=== PATIENT | female | born 1940 | race Caucasian/White ===

== ENCOUNTER 2017-08-08 16:34 | Inpatient (IN) | payer MEDICARE, MEDICAID ==
[2017-08-08 17:00] VITALS: BMI 19.4
[2017-08-08] MEDS ORDERED: Sodium Chloride 0.9% 500 ML IV ONE ×2 (17:06→20:54)
[2017-08-08] MEDS ORDERED: cefTRIAXone IV 1 gm in Dextros 50 ML IV ONE (17:08)
[2017-08-08 17:41] LABS: BASO % 0.4 % (0.0-2.0); EOS % 0.2 % (0.0-4.0); HEMATOCRIT 31.7 % (34.0-47.0); LYMPH # 0.7 K/uL (1.0-4.3); LYMPH % 8.5 % (20.0-40.0); MEAN CELL VOLUME 89.2 fL (81.0-99.0); MEAN CORPUSCULAR HEMOGLOBIN 30.1 pg (27.0-31.0); MEAN CORPUSCULAR HGB CONC 33.7 g/dL (33.0-37.0); MONO # 0.5 K/uL (0.0-0.8); MONO % 6.5 % (0.0-10.0); PLATELET COUNT 271 K/uL (130-400); RED CELL DISTRIBUTION WIDTH 16.1 % (11.5-14.5); WHITE BLOOD COUNT 8.3 K/uL (4.8-10.8)
[2017-08-08 17:51] LABS: VENOUS BLOOD GAS BASE EXCESS 2.5 mmol/L (0.0-2.0); VENOUS BLOOD GAS PCO2 45 mmHg (40-60)
[2017-08-08 17:52] LABS: ALB/GLOB RATIO 1.3 (1.0-2.1); CALCIUM 8.5 mg/dl (8.6-10.4); POTASSIUM 3.8 mmol/L (3.6-5.2); TOTAL PROTEIN 7.1 g/dL (6.3-8.3)
[2017-08-08] MEDS ORDERED: cefTRIAXone IV 1 gm in Dextros 50 ML IVPB ONE (17:57)
[2017-08-08] MEDS ORDERED: (Novolin R) Insulin Human Regular 100 units/ml vial IV STA (17:59)
[2017-08-08 18:04] LABS: TROPONIN I 0.013 ng/mL (0.00-0.120)
[2017-08-08] MEDS ORDERED: (Novolin R) Insulin Human Regular 100 units/ml vial ONE (18:18)
[2017-08-08 18:32] LABS: NEUTROPHIL 86 % (50-75); TOTAL CELLS COUNTED 100
[2017-08-08 18:47] LABS: RBC URINE 2 /hpf (0-3); URINE BACTERIA RARE (<OCC); URINE BILIRUBIN NEGATIVE (NEGATIVE); URINE BLOOD 1+ (NEGATIVE); URINE COLOR Yellow (YELLOW); URINE GLUCOSE (UA) 3+ mg/dL (Normal); URINE KETONE NEGATIVE (NEGATIVE); URINE LEUKOCYTE ESTERASE 2+ Leu/uL (Negative); URINE PROTEIN NEGATIVE (NEGATIVE); URINE UROBILINOGEN NORMAL mg/dL (0.2-1.0); WBC URINE 119 /hpf (0-5)
[2017-08-08] MEDS ORDERED: Lactated Ringer's 1,000 ML IV ONE (19:29)
--- NOTE | 2017-08-08 19:31 | C.PDOC ---
History Of Present Illness 76 year old female with PMHx of UTIs is brought by EMS for evaluation of AMS, fever since 09:00 this morning. Patient has a Hx of gluteal/perineal a year ago. Upon arrival to the ED patient was confused, febrile and shaken. Time Seen by Provider: 08/08/17 17:06 Chief Complaint (Nursing): Altered Mental Status History Per: EMS History/Exam Limitations: Other (confusion) Onset/Duration Of Symptoms: Hrs Current Symptoms Are (Timing): Still Present Usual Baseline: Alert Oriented Exacerbating Factor(s): Unknown Use Of Anticoag/Antiplatelets: No Speech Is: Normal Severity: None Recent travel outside of the [place]: No Additional History Per: EMS Associated Symptoms: Fever, Confused, Other (Shaken) Past Medical History Reviewed: Historical Data, Nursing Documentation, Vital Signs Vital Signs: Last Vital Signs Temp 98.4 F 08/08/17 19:27 Pulse 96 H 08/08/17 19:27 Resp 16 08/08/17 19:27 BP 119/51 L 08/08/17 19:27 Pulse Ox 93 L 08/08/17 20:34 - Medical History PMH: Arthritis, Asthma, COPD, Diabetes, HTN, Hypercholesterolemia, Malignancy, Peripheral Edema, Rheumatoid Arthritis Denies: Chronic Kidney Disease Surgical History: No Surg Hx - [facility] Procedures CONTRAST AORTOGRAM (11/23/14) CONTRAST ARTERIOGRAM-LEG (11/23/14) DRAINAGE OF VULVA, OPEN APPROACH (03/14/16) INSERTION OF INFUSION DEV INTO SUP VENA CAVA, PERC APPROACH (03/06/16) Family History: States: Unknown Family Hx - Social History Hx Tobacco Use: No Hx Alcohol Use: No Hx Substance Use: No - Immunization History Hx Tetanus Toxoid Vaccination: No Hx Influenza Vaccination: Yes (10/2015) Hx Pneumococcal Vaccination: Yes (10/2015) Review Of Systems Constitutional: Positive for: Fever. Negative for: Chills Eyes: Negative for: Vision Change Cardiovascular: Negative for: Chest Pain, Palpitations Respiratory: Negative for: Cough, Shortness of Breath Gastrointestinal: Negative for: Nausea, Vomiting, Abdominal Pain Musculoskeletal: Negative for: Back Pain Skin: Negative for: Rash Neurological: Positive for: Confusion, Altered Mental Status. Negative for: Weakness, Numbness Physical Exam - Physical Exam Appears: Non-toxic, Confused, Other (elderly, shaken) Skin: Normal Color, Warm, Dry Head: Atraumatic, Normacephalic Nose: No Discharge, No Deformity Oral Mucosa: Moist Neck: Normal ROM, Supple Chest: Symmetrical Cardiovascular: Rhythm Regular, No Murmur Respiratory: Normal Breath Sounds, No Rales, No Rhonchi, No Wheezing Gastrointestinal/Abdominal: Soft, No Tenderness, No Distention, No Rebound Extremity: Normal ROM, No Pedal Edema, No Calf Tenderness, No Deformity, No Swelling Neurological/Psych: Oriented x3 ED Course And Treatment - Laboratory Results Result Diagrams: 08/08/17 17:36 08/08/17 17:36 Lab Interpretation: Abnormal (UA 119 WBC's) ECG Rhythm: Sinus Tachycardia ECG Interpretation: Abnormal Rate From EC (MAT vs AF) O2 Sat by Pulse Oximetry: 93 (On RA) Pulse Ox Interpretation: Normal - Radiology CXR: Interpreted by Pr CXR Interpretation: Yes: No Acute Disease - CT Scan/US head CT Other Rad Studies (CT/US): Radiology Report Reviewed (no acute changes) Progress Note: IVF, tylenol, Rocephin IV Reevaluation Time: 19:53 Reassessment Condition: Improved - Physician Consult Information Outcome Of Conversation: 193: d/w Dr. Rodney- PMD-ok to admit. recommends lovenox 1mg/kg SQ Medical Decision Making Medical Decision Making: Plan: * EKG * Tylenol 975 mg PO * Lovenox 50 mg SC * Insulin 4 units * IV fluids * Blood culture * Urine culture early sepsis, UTI, hyponatremia/hypochloric, c/w dehydration. Disposition Doctor Will See Patient In The: Hospital Counseled Patient/Family Regarding: Studies Performed, Diagnosis - Disposition Disposition: HOSPITALIZED Disposition Time: 19:54 Condition: GOOD - Clinical Impression Clinical Impression: Septicemia, UTI (urinary tract infection), Dehydration, Mental status change - Scribe Statement The provider has reviewed the documentation as recorded by the Scribe Yan Dillard All medical record entries made by the Scribe were at my direction and personally dictated by me. I have reviewed the chart and agree that the record accurately reflects my personal performance of the history, physical exam, medical decision making, and the department course for this patient. I have also personally directed, reviewed, and agree with the discharge instructions and disposition.
[2017-08-08] MEDS ORDERED: Enoxaparin 60 mg Syringe SC STA (19:58)
--- NOTE | 2017-08-08 20:03 | CT ---
EXAM: CT Head Without Intravenous Contrast CLINICAL HISTORY: 76 years old, female; Signs and symptoms; Altered mental status/memory loss; Additional info: Change of mental status, h/o tumor TECHNIQUE: Axial computed tomography images of the head/brain without intravenous contrast. All CT scans at this facility use one or more dose reduction techniques, viz.: automated exposure control; ma/kV adjustment per patient size (including targeted exams where dose is matched to indication; i.e. head); or iterative reconstruction technique. COMPARISON: No relevant prior studies available. FINDINGS: Brain: Prior right craniotomy with underlying temporal encephalomalacia. Generalized atrophy and chronic white matter ischemic changes. Vascular calcification. There is no evidence of mass or acute infarct. No definitive evidence of hemorrhage. Small focus of hyperattenuation in the right frontal lobe, question artifact, question etiology. Ventricles: No hydrocephalus. Sinuses: Minimal paranasal sinus mucosal thickening. No acute sinusitis. Mastoid air cells: No mastoid effusion. Artifact. IMPRESSION: Artifact limits evaluation. Small focus of hyperattenuation in the right frontal lobe, question artifact, question etiology. Chronic findings as above. Correlate clinically. Followup as warranted.
[2017-08-08] MEDS ORDERED: Enoxaparin 60 mg Syringe ONE (20:31)
[2017-08-08 21:10] LABS: VENOUS BLOOD GAS BASE EXCESS -2.7 mmol/L (0.0-2.0); VENOUS BLOOD GAS PCO2 40 mmHg (40-60); VENOUS BLOOD PH 7.36 (7.32-7.43)
--- NOTE | 2017-08-08 22:07 | CP.PCM.HP ---
History of Present Illness - History of Present Illness History of Present Illness: chief complaint: AMS, confusion and weakness with shaking since this am History present illness: 75-year-old female with history of hypertension, diabetes, hypercholesteremia, rheumatoid arthritis, history of brain surgery came to the emergency room with weakness, and AMS and shaking since this am. few days she is making small amount of urine and but no blood or pain. 2 days she was feeling more weak and not eating well. 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 But no fever at home. Upon arrival to ER she had fever of 103 rectally. she was warm and legs are more red. she had perineal abscess in the past and had I and D. past medical history: Hypertension, diabetes, rheumatoid arthritis, hypercholesterolemia,history of brain surgery. Surgical history included Brain surgery and craniotomy and abscess drainage Allergies: No known drug allergy Family history: Noncontributory. Review of system: patient is having increasing weakness, AMS, lethargic worsening in shaking poor eating no nausea no vomiting chills and fever. On examination: Temp Pulse Resp BP Pulse Ox 98.2 F 86 20 82/58 L 93 L 08/08/17 21:30 08/08/17 21:58 08/08/17 21:58 08/08/17 21:58 08/08/17 21:58 Vital signs reviewed in Chest good air entry bilaterally regular heart sound noted. Nontender abdomen. Extremities bilateral pedal edema noted. 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 Elevated WBC noted. 08/08/17 17:36 08/08/17 17:36 Assessment/condition: 76-year-old female with history of diabetes, hypertension, hypercholesteremia, RA h/o craniotomy admitted with AMS likely 2* to urosepsis and associated with SIRS or sepsis UTI with sepsis uncontrolled DM hyponautremia hypotension prognosis guarded IVF antibiotic DVT and GI prophylaxis spoke to family may need ICU eval Present on Admission - Present on Admission Any Indicators Present on Admission: No History of DVT/PE: No History of Uncontrolled Diabetes: No Urinary Catheter: No Decubitus Ulcer Present: No Past Patient History - Past Medical History & Family History Past Medical History?: Yes - Past Social History Smoking Status: Never Smoked - CARDIAC Hx Hypercholesterolemia: Yes Hx Hypertension: Yes Hx Peripheral Edema: Yes - PULMONARY Hx Asthma: Yes Hx Chronic Obstructive Pulmonary Disease (COPD): Yes - NEUROLOGICAL Hx Neurological Disorder: Yes (NEUROPATHY) Other/Comment: HX CRANIOTOMY BENIGN BRAIN TUMOR; POLYNEUROPATHY - HEENT Hx HEENT Problems: Yes Hx Cataracts: Yes Hx Glaucoma: Yes - RENAL Hx Chronic Kidney Disease: No - ENDOCRINE/METABOLIC Hx Endocrine Disorders: Yes Hx Diabetes Mellitus Type 1: Yes - HEMATOLOGICAL/ONCOLOGICAL Hx Blood Disorders: Yes Hx Cancer: Yes (BREAST MASTECTOMY) - INTEGUMENTARY Hx Dermatological Problems: No - MUSCULOSKELETAL/RHEUMATOLOGICAL Hx Arthritis: Yes Hx Rheumatoid Arthritis: Yes - GASTROINTESTINAL Hx Gastrointestinal Disorders: Yes Hx Gastroesophageal Reflux: Yes - GENITOURINARY/GYNECOLOGICAL Hx Genitourinary Disorders: No - PSYCHIATRIC Hx Substance Use: No - SURGICAL HISTORY Hx Surgeries: Yes Hx Mastectomy: Yes (left breast) Other/Comment: CRANIOTOMY 1994 BENIGN BRAIN TUMOR REMOVAL ABD CYST - ANESTHESIA Hx Anesthesia: Yes Hx Anesthesia Reactions: No Hx Malignant Hyperthermia: No Meds Allergies/Adverse Reactions: Allergies Allergy/AdvReac Type Severity Reaction Status Date / Time No Known Allergies Allergy Verified 08/08/17 17:00 Results - Vital Signs Recent Vital Signs: Last Vital Signs Temp 98.2 F 08/08/17 21:30 Pulse 88 08/08/17 21:30 Resp 20 08/08/17 21:30 BP 92/60 L 08/08/17 21:30 Pulse Ox 95 08/08/17 21:30 - Labs Result Diagrams: 08/08/17 17:36 08/08/17 17:36 Labs: Laboratory Results - last 24 hr 08/08/17 08/08/17 08/08/17 17:30 17:36 17:36 WBC 8.3 RBC 3.56 L Hgb 10.7 L Hct 31.7 L MCV 89.2 D MCH 30.1 MCHC 33.7 RDW 16.1 H Plt Count 271 MPV 9.0 Neut % (Auto) 84.4 H Lymph % (Auto) 8.5 L [place] % (Auto) 6.5 Eos % (Auto) 0.2 Baso % (Auto) 0.4 Neut # 7.0 Lymph # 0.7 L [place] # 0.5 Eos # 0.0 Baso # 0.0 Neutrophils % (Manual) 86 H Lymphocytes % (Manual) 12 L Monocytes % (Manual) 2 Platelet Estimate Normal PT INR APTT pO2 VBG pH VBG pCO2 VBG HCO3 VBG Total CO2 VBG O2 Sat (Calc) VBG Base Excess VBG Potassium Glucose Lactate Sodium 126 L Potassium 3.8 Chloride 90 L Carbon Dioxide 26 Anion Gap 14 BUN 28 H Creatinine 1.2 Est GFR ( Amer) 53 Est GFR (Non-Af Amer) 44 POC Glucose (mg/dL) Random Glucose 300 H Calcium 8.5 L Total Bilirubin 1.0 AST 21 ALT 32 Alkaline Phosphatase 93 Troponin I 0.0130 NT-Pro-B Natriuret Pep 412 Total Protein 7.1 Albumin 4.0 Globulin 3.1 Albumin/Globulin Ratio 1.3 Venous Blood Potassium Urine Color Urine Clarity Urine pH Ur Specific [place] Urine Protein Urine Glucose (UA) Urine Ketones Urine Blood Urine Nitrate Urine Bilirubin Urine Urobilinogen Ur Leukocyte Esterase Urine WBC (Auto) Urine RBC (Auto) Ur Squamous Epith Cells Urine Bacteria Influenza Typ A,B (EIA) Negative for flu a/b 08/08/17 08/08/17 08/08/17 17:36 17:46 18:32 WBC RBC Hgb Hct MCV MCH MCHC RDW Plt Count MPV Neut % (Auto) Lymph % (Auto) [place] % (Auto) Eos % (Auto) Baso % (Auto) Neut # Lymph # [place] # Eos # Baso # Neutrophils % (Manual) Lymphocytes % (Manual) Monocytes % (Manual) Platelet Estimate PT 10.6 INR 1.0 APTT 24 pO2 35 VBG pH 7.40 VBG pCO2 45 VBG HCO3 26.1 VBG Total CO2 29.3 H VBG O2 Sat (Calc) 74.9 H VBG Base Excess 2.5 H VBG Potassium 3.9 Glucose 311 H Lactate 1.9 Sodium 130.0 L Potassium Chloride 93.0 L Carbon Dioxide Anion Gap BUN Creatinine Est GFR ( Amer) Est GFR (Non-Af Amer) POC Glucose (mg/dL) Random Glucose Calcium Total Bilirubin AST ALT Alkaline Phosphatase Troponin I NT-Pro-B Natriuret Pep Total Protein Albumin Globulin Albumin/Globulin Ratio Venous Blood Potassium 3.9 Urine Color Yellow Urine Clarity Hazy Urine pH 5.0 Ur Specific [place] 1.013 Urine Protein Negative Urine Glucose (UA) 3+ H Urine Ketones Negative Urine Blood 1+ H Urine Nitrate Positive H Urine Bilirubin Negative Urine Urobilinogen Normal Ur Leukocyte Esterase 2+ H Urine WBC (Auto) 119 H Urine RBC (Auto) 2 Ur Squamous Epith Cells < 1 Urine Bacteria Rare Influenza Typ A,B (EIA) 08/08/17 08/08/17 20:28 21:07 WBC RBC Hgb Hct MCV MCH MCHC RDW Plt Count MPV Neut % (Auto) Lymph % (Auto) [place] % (Auto) Eos % (Auto) Baso % (Auto) Neut # Lymph # [place] # Eos # Baso # Neutrophils % (Manual) Lymphocytes % (Manual) Monocytes % (Manual) Platelet Estimate PT INR APTT pO2 31 VBG pH 7.36 VBG pCO2 40 VBG HCO3 21.7 VBG Total CO2 23.8 VBG O2 Sat (Calc) 66.9 H VBG Base Excess -2.7 L VBG Potassium 2.8 L Glucose 190 H Lactate 1.8 Sodium 135.0 Potassium Chloride 104.0 Carbon Dioxide Anion Gap BUN Creatinine Est GFR ( Amer) Est GFR (Non-Af Amer) POC Glucose (mg/dL) 201 H Random Glucose Calcium Total Bilirubin AST ALT Alkaline Phosphatase Troponin I NT-Pro-B Natriuret Pep Total Protein Albumin Globulin Albumin/Globulin Ratio Venous Blood Potassium 2.8 L Urine Color Urine Clarity Urine pH Ur Specific [place] Urine Protein Urine Glucose (UA) Urine Ketones Urine Blood Urine Nitrate Urine Bilirubin Urine Urobilinogen Ur Leukocyte Esterase Urine WBC (Auto) Urine RBC (Auto) Ur Squamous Epith Cells Urine Bacteria Influenza Typ A,B (EIA)
[2017-08-08] MEDS ORDERED: Sodium Chloride 0.9% 1,000 ML IV SCH (22:15)
[2017-08-08] MEDS: Piperacill/Tazo 2.25gm in Dex 2.25 GM/50 ML BAG IVPB SCH (23:00)
[2017-08-09] MEDS ORDERED: Tramadol 25 mg PO ONE (01:47)
[2017-08-09] MEDS: Albuterol-Ipratrop 3 mg / 0.5 (3 ml) UD INH SCH ×4 (01:51→20:16)
[2017-08-09 02:46] LABS: ABG ALLEN TEST POS; ABG MECHANICAL RATE 14; ARTERIAL BLOOD GAS MODE BiPAP; DRAW SITE RRADIAL
[2017-08-09] MEDS: Magnesium Sulfate 1 gm in D5W 1 GM/100 ML BAG IVPB SCH ×2 (03:07→03:42)
[2017-08-09] MEDS: Piperacill/Tazo 2.25gm in Dex 2.25 GM/50 ML BAG IVPB SCH ×4 (04:49→22:31)
[2017-08-09 06:37] LABS: BASO % 0.1 % (0.0-2.0); EOS % 0.1 % (0.0-4.0); HEMATOCRIT 27.7 % (34.0-47.0); LYMPH # 0.5 K/uL (1.0-4.3); MEAN CELL VOLUME 90.4 fL (81.0-99.0); MEAN CORPUSCULAR HEMOGLOBIN 30.9 pg (27.0-31.0); MEAN CORPUSCULAR HGB CONC 34.2 g/dL (33.0-37.0); MEAN PLATELET VOLUME 10.3 fL (7.2-11.7); MONO # 0.4 K/uL (0.0-0.8); MONO % 4.6 % (0.0-10.0); NRBC % 0.1 % (0.0-2.0); PLATELET COUNT 203 K/uL (130-400); RED CELL DISTRIBUTION WIDTH 16.4 % (11.5-14.5); WHITE BLOOD COUNT 8.2 K/uL (4.8-10.8)
[2017-08-09 07:37] LABS: POTASSIUM 2.4 mmol/L (3.6-5.2)
[2017-08-09 07:38] LABS: ALB/GLOB RATIO 0.7 (1.0-2.1); ALKALINE PHOSPHATASE 46 U/L (38-126); ALT/SGPT 33 U/L (9-52); AST/SGOT 40 U/L (14-36); BILIRUBIN,TOTAL 0.5 mg/dL (0.2-1.3); BLOOD UREA NITROGEN 18 mg/dL (7-17); CALCIUM 4.6 mg/dl (8.6-10.4); CARBON DIOXIDE 17 mmol/L (22-30); CHLORIDE 107 mmol/L (98-107); GFR AFRICAN-AMERICAN > 60; GLUCOSE,RANDOM 282 mg/dL (65-105); SODIUM 128 mmol/L (132-148); TOTAL PROTEIN 4.5 g/dL (6.3-8.3)
[2017-08-09 07:52] LABS: NEUTROPHIL 80 % (50-75); TOTAL CELLS COUNTED 100
[2017-08-09] MEDS: (Novolin R) Insulin Human Regular 100 units/ml vial SC SCH ×4 (08:07→21:56)
--- NOTE | 2017-08-09 08:12 | RAD ---
Chest x-ray single frontal view History: Shortness of breath. Comparison: 03/23/2016 Findings: Moderate venous congestion. Right hilar prominence. Patchy increased markings at the left lung base. Cardiomegaly. Calcification at the aortic knob. Degenerative changes in the spine and shoulders. Impression: Moderate venous congestion. Right hilar prominence. Patchy increased markings at the left lung base. Cardiomegaly.
--- NOTE | 2017-08-09 08:20 | CP.PCM.PN ---
Subjective - Date & Time of Evaluation Date of Evaluation: 08/09/17 Time of Evaluation: 08:17 - Subjective Subjective: Patient is currently on BiPAP. She is arousable, following commands. Respiratory distress mildly noted Patient claims that she is not hungry. Currently no IV fluids running Received Lasix last night. No fever now. Urine output is not clear No chest pain, no wheezing Objective - Vital Signs/Intake and Output Vital Signs (last 24 hours): Temp Pulse Resp BP Pulse Ox 97.6 F 90 22 102/49 L 97 08/09/17 03:41 08/09/17 07:20 08/09/17 07:20 08/09/17 07:01 08/09/17 07:20 Intake and Output: 08/09/17 08/09/17 06:59 18:59 Intake Total 595 Output Total 575 Balance 20 On BiPAP Chest good air entry Regular heart sounds Abdomen soft Extremities edema noted Afebrile now Awake and responding to deep stimuli - Medications Medications: Current Medications Albuterol/Ipratropium (Duoneb 3 Mg/0.5 Mg (3 Ml) Ud) 3 ml INH RQ6 [facility] Last Admin: 08/09/17 01:51 Dose: 3 ml Anastrozole (Arimidex 1 Mg Tab) 1 mg PO DAILY NE[facility] Gabapentin (Neurontin) 300 mg PO DAILY NELLY Heparin Sodium (Porcine) (Heparin) 5,000 units SC Q8 [facility] Last Admin: 08/09/17 05:44 Dose: 5,000 units Piperacillin Sod/Tazobactam Sod (Zosyn 2.25 Gm Iv Premix) 2.25 gm in 50 mls @ 100 mls/hr IVPB Q6H [facility] Last Admin: 08/09/17 04:49 Dose: 100 mls/hr Insulin Detemir (Levemir) 30 unit SC DAILY [facility] Insulin Human Regular (Novolin R) 0 unit SC ACHS NE[facility] PRN Reason: Protocol Last Admin: 08/09/17 08:07 Dose: 3 unit Latanoprost (Xalatan Opht) 0 ml OU HS NE[facility] Montelukast Sodium (Singulair) 10 mg PO HS NELLY Pantoprazole Sodium (Protonix Inj) 40 mg IVP DAILY [facility] Rosuvastatin Calcium (Crestor) 40 mg PO HS NELLY - Labs Labs: 08/09/17 06:28 08/09/17 07:23 PT 10.6 SECONDS (9.7-12.2) 08/08/17 17:36 INR 1.0 08/08/17 17:36 APTT 24 SECONDS (21-34) 08/08/17 17:36 - Head Exam Head Exam: ATRAUMATIC Assessment and Plan (1) Mental status change Assessment & Plan: Patient with a history of hypertension, diabetes, osteoarthritis, rheumatoid arthritis, history of craniotomy, and the recurrent infection in the past. Now admitted with a fever, abnormal urinalysis. Most likely patient has urinary tract infection. Sepsis. Will get a pro calcitonin level Continue antibiotic We'll resume feeding today Physical therapy DVT, GI prophylaxis Possibly patient will need PICC line Will discuss with the family Status: Acute (2) Septicemia Status: Acute (3) UTI (urinary tract infection) Status: Acute
--- NOTE | 2017-08-09 08:24 | RAD ---
Chest x-ray single frontal view History: Shortness of breath. Comparison: 08/08/2017 Findings: Moderate venous congestion. Diffuse increased interstitial lung markings. Right hilar prominence. Patchy consolidative changes at the left lung base. Biapical pleural thickening. Cardiomegaly. Calcification at the aortic knob. Degenerative changes in the spine and shoulders. Impression: Moderate venous congestion. Diffuse increased interstitial lung markings. Right hilar prominence. Patchy consolidative changes at the left lung base. Biapical pleural thickening. Cardiomegaly.
[2017-08-09 08:26] LABS: ALB/GLOB RATIO 1.2 (1.0-2.1); MAGNESIUM 1.9 mg/dL (1.6-2.3); PHOSPHOROUS 2.8 mg/dL (2.5-4.5); POTASSIUM 3.9 mmol/L (3.6-5.2); TOTAL PROTEIN 6.3 g/dL (6.3-8.3)
[2017-08-09] MEDS: Insulin Detemir 100 units/ml Vial (Levemir) SC SCH (10:02)
[2017-08-09] MEDS ORDERED: Influenza Vaccine 60 mcg/0.5 mL SYR (4YR UP) IM ONE (12:10)
[2017-08-09] MEDS: Latanoprost 2.5 ml Opht Soln OU SCH (22:31)
[2017-08-10] MEDS: Albuterol-Ipratrop 3 mg / 0.5 (3 ml) UD INH SCH ×4 (02:05→19:59)
[2017-08-10] MEDS: Piperacill/Tazo 2.25gm in Dex 2.25 GM/50 ML BAG IVPB SCH ×2 (04:17→16:47)
[2017-08-10 06:27] LABS: BASO % 0.1 % (0.0-2.0); HEMATOCRIT 30.7 % (34.0-47.0); LYMPH # 1.5 K/uL (1.0-4.3); LYMPH % 13.5 % (20.0-40.0); MEAN CELL VOLUME 90.4 fL (81.0-99.0); MEAN CORPUSCULAR HEMOGLOBIN 30.6 pg (27.0-31.0); MEAN CORPUSCULAR HGB CONC 33.9 g/dL (33.0-37.0); MEAN PLATELET VOLUME 9.6 fL (7.2-11.7); MONO # 0.9 K/uL (0.0-0.8); MONO % 8.6 % (0.0-10.0)
[2017-08-10 06:48] LABS: ALB/GLOB RATIO 0.8 (1.0-2.1); BILIRUBIN,TOTAL 0.7 mg/dL (0.2-1.3); CALCIUM 8.4 mg/dl (8.6-10.4); PHOSPHOROUS 3.1 mg/dL (2.5-4.5); POTASSIUM 3.6 mmol/L (3.6-5.2); TOTAL PROTEIN 8.1 g/dL (6.3-8.3)
[2017-08-10] MEDS: (Novolin R) Insulin Human Regular 100 units/ml vial SC SCH ×4 (08:02→21:37)
[2017-08-10] MEDS: Insulin Detemir 100 units/ml Vial (Levemir) SC SCH (09:35)
--- NOTE | 2017-08-10 10:26 | VASCLAB ---
PROCEDURE: Lower Extremity Venous Duplex Exam. HISTORY: r/o dvt, B/L LE edema, pain, SOB PRIORS: None. TECHNIQUE: Bilateral common femoral, femoral, popliteal and posterior tibial, peroneal and great saphenous veins were evaluated. Flow was assessed with color Doppler, compressibility, assessment of phasic flow and augmentation response. Report prepared by Marco Antonio George, T FINDINGS: RIGHT: 1. Common Femoral Vein: 1.1. Compressibility - Fully compressible: Thrombus - None : Flow - Phasic: Augmentation -Normal: Reflux - . 2. Femoral Vein: 2.1. Compressibility - Fully compressible: Thrombus - None : Flow - Phasic: Augmentation -Normal: Reflux - . 3. Popliteal Vein: 3.1. Compressibility - Fully compressible: Thrombus - None : Flow - Phasic: Augmentation -Normal: Reflux - . 4. Posterior Tibial Vein: 4.1. Compressibility - Fully compressible: Thrombus - None: Flow - : Augmentation -: Reflux - . 5. Peroneal Vein: 5.1. Compressibility - Fully compressible: Thrombus - None: Flow - : Augmentation -: Reflux - . 6. Great Saphenous Vein: 6.1. Compressibility - Fully compressible: Thrombus - None: Flow - Phasic: Augmentation - : Reflux - . LEFT: 1. Common Femoral Vein: 1.1. Compressibility - Fully compressible: Thrombus - None: Flow - Phasic: Augmentation -Normal: Reflux - . 2. Femoral Vein: 2.1. Compressibility - Fully compressible: Thrombus - None: Flow - Phasic: Augmentation -Normal: Reflux - . 3. Popliteal Vein: 3.1. Compressibility - Fully compressible: Thrombus - None : Flow - Phasic: Augmentation -Normal: Reflux - . 4. Posterior Tibial Vein: 4.1. Compressibility - Fully compressible: Thrombus - None: Flow - : Augmentation -l: Reflux - . 5. Peroneal Vein: 5.1. Compressibility - Fully compressible: Thrombus - None: Flow - : Augmentation -: Reflux - . 6. Great Saphenous Vein: 6.1. Compressibility - Fully compressible: Thrombus - None: Flow - : Augmentation - : Reflux - . OTHER FINDINGS: Right: None significant. Left: None significant. IMPRESSION: Right: No evidence of deep or superficial vein thrombosis of the right lower extremity. Left: No evidence of deep or superficial vein thrombosis of the left lower extremity.
--- NOTE | 2017-08-10 11:58 | CP.PCM.PN ---
Addendum entered and electronically signed by Jessica Teresa DO 08/10/17 12:07: please disregard this note. see Critical Care note Original Note: <Jessica Teresa - Last Filed: 08/10/17 11:48> Subjective - Date & Time of Evaluation Date of Evaluation: 08/10/17 Time of Evaluation: 11:48 - Subjective Subjective: ICU Progress note for Dr. Nick Patient seen and examined at bedside. Patient states she feels better than yesterday and had BIPAP overnight. Patient states she feels better. denies fever , chills, nausea, vomiting, diarrhea. Patient admits to pain in her lower abdomen and is aware she has a urinary tract infection Objective - Vital Signs/Intake and Output Vital Signs (last 24 hours): Temp Pulse Resp BP Pulse Ox 98.3 F 79 15 150/76 100 08/10/17 00:22 08/10/17 10:10 08/10/17 10:10 08/10/17 10:01 08/10/17 10:10 Intake and Output: 08/10/17 08/10/17 06:59 18:59 Intake Total 390 400 Output Total 600 300 Balance -210 100 - Medications Medications: Current Medications Albuterol/Ipratropium (Duoneb 3 Mg/0.5 Mg (3 Ml) Ud) 3 ml INH RQ6 [facility] Last Admin: 08/10/17 08:53 Dose: 3 ml Anastrozole (Arimidex 1 Mg Tab) 1 mg PO DAILY [facility] Last Admin: 08/10/17 09:35 Dose: 1 mg Famotidine (Pepcid) 20 mg PO DAILY [facility] Gabapentin (Neurontin) 300 mg PO DAILY [facility] Last Admin: 08/10/17 09:35 Dose: 300 mg Heparin Sodium (Porcine) (Heparin) 5,000 units SC Q8 [facility] Last Admin: 08/10/17 05:13 Dose: 5,000 units Cefepime HCl (Maxipime Iv 1 Gm Premix) 1 gm in 50 mls @ 100 mls/hr IVPB Q12H [facility] Insulin Detemir (Levemir) 30 unit SC DAILY [facility] Last Admin: 08/10/17 09:35 Dose: 30 unit Insulin Human Regular (Novolin R) 0 unit SC ACHS [facility] PRN Reason: Protocol Last Admin: 08/10/17 08:02 Dose: 4 unit Latanoprost (Xalatan Opht) 0 ml OU HS [facility] Last Admin: 08/09/17 22:31 Dose: 1 ml Montelukast Sodium (Singulair) 10 mg PO HS [facility] Last Admin: 08/09/17 21:57 Dose: 10 mg Rosuvastatin Calcium (Crestor) 40 mg PO HS [facility] Last Admin: 08/09/17 21:57 Dose: 40 mg Tramadol HCl (Ultram) 25 mg PO TID PRN PRN Reason: Pain, moderate (4-7) - Labs Labs: 08/10/17 06:20 08/10/17 06:18 PT 10.6 SECONDS (9.7-12.2) 08/08/17 17:36 INR 1.0 08/08/17 17:36 APTT 24 SECONDS (21-34) 08/08/17 17:36 - Constitutional Appears: Non-toxic, No Acute Distress - Head Exam Head Exam: ATRAUMATIC, NORMAL INSPECTION, NORMOCEPHALIC - Eye Exam Eye Exam: EOMI, Normal appearance - ENT Exam ENT Exam: Mucous Membranes Moist - Neck Exam Neck Exam: Full ROM. absent: Tenderness, Thyromegaly - Respiratory Exam Respiratory Exam: Decreased Breath Sounds, Rales, NORMAL BREATHING PATTERN - Cardiovascular Exam Cardiovascular Exam: REGULAR RHYTHM, +S1, +S2. absent: Bradycardia, Tachycardia - GI/Abdominal Exam GI & Abdominal Exam: Distended, Soft, Normal Bowel Sounds. absent: Tenderness - Extremities Exam Extremities Exam: Full ROM. absent: Pedal Edema - Back Exam Back Exam: Full ROM - Neurological Exam Neurological Exam: Alert, Awake, CN II-XII Intact, Oriented x3 - Psychiatric Exam Psychiatric exam: Normal Affect, Normal Mood - Skin Skin Exam: Dry, Intact, Normal Color, Warm Assessment and Plan - Assessment and Plan (Free Text) Assessment: Plan Neuro: Sedation: none Pain: Tramadol 25mg PO TID PRN 08/08 CT head: small focus of hyperattenuation in right frontal lobe, questionable artifact Cardio: monitor vitals Pulm: 08/08 CXR moderate venous congestion, calcification at aorta 08/09 CXR no change, calcification at aorta Montelukast 10mg POQHS Endo: Levemir 30u SC QD Insulin Human Regular SC Accucheck ACHS f/u A1c GI: 08/10 Lipase 8456 08/10 FOBT positive : 08/09 UA: UTI 08/08 Urine culture: Klebsiella Cefepime 1gm IVPB Q12H Renal: I/O: 24Hr UOP:2200cc No taylor Heme: H/H 10.4/30.7 Oncology: Anastrozole 1mg POQD MSK: Duplex lower extremity artery scan: no dvt, no thrombus ID: f/u AM CBC 08/10 WBC 11.0 from 8.2 08/08 Urine culture: Klebsiella 08/08 Blood culture: Gram negative rods Cefepime 1gm IVPB Q12H Prophylaxis: DVT: Heparin 5000u SC Q8H GI: Pepcid 20mg POQD Fluids: IV fluids transfer to T telemetry Dr. Park Teresa, DO PGY1 <Marianna Nick - Last Filed: 08/10/17 18:51> Subjective - Subjective Subjective: pt is feeling better Objective - Vital Signs/Intake and Output Vital Signs (last 24 hours): Temp Pulse Resp BP Pulse Ox 97.1 F L 76 19 162/78 H 67 L 08/10/17 16:00 08/10/17 18:00 08/10/17 18:00 08/10/17 16:18 08/10/17 16:30 Intake and Output: 08/10/17 08/10/17 06:59 18:59 Intake Total 390 900 Output Total 600 800 Balance -210 100 - Medications Medications: Current Medications Albuterol/Ipratropium (Duoneb 3 Mg/0.5 Mg (3 Ml) Ud) 3 ml INH RQ6 [facility] Last Admin: 08/10/17 14:37 Dose: Not Given Anastrozole (Arimidex 1 Mg Tab) 1 mg PO DAILY [facility] Last Admin: 08/10/17 09:35 Dose: 1 mg Famotidine (Pepcid) 20 mg PO DAILY [facility] Last Admin: 08/10/17 14:21 Dose: 20 mg Gabapentin (Neurontin) 300 mg PO DAILY [facility] Last Admin: 08/10/17 09:35 Dose: 300 mg Heparin Sodium (Porcine) (Heparin) 5,000 units SC Q8 [facility] Last Admin: 08/10/17 14:21 Dose: 5,000 units Cefepime HCl (Maxipime Iv 1 Gm Premix) 1 gm in 50 mls @ 100 mls/hr IVPB Q12H [facility] Last Admin: 08/10/17 12:14 Dose: 100 mls/hr Insulin Detemir (Levemir) 30 unit SC DAILY [facility] Last Admin: 08/10/17 09:35 Dose: 30 unit Insulin Human Regular (Novolin R) 0 unit SC ACHS [facility] PRN Reason: Protocol Last Admin: 08/10/17 16:31 Dose: 4 unit Latanoprost (Xalatan Opht) 0 ml OU HS [facility] Last Admin: 08/09/17 22:31 Dose: 1 ml Montelukast Sodium (Singulair) 10 mg PO HS [facility] Last Admin: 08/09/17 21:57 Dose: 10 mg Rosuvastatin Calcium (Crestor) 40 mg PO HS [facility] Last Admin: 08/09/17 21:57 Dose: 40 mg Tramadol HCl (Ultram) 25 mg PO TID PRN PRN Reason: Pain, moderate (4-7) Last Admin: 08/10/17 16:44 Dose: 25 mg - Labs Labs: 08/10/17 06:20 08/10/17 06:18 PT 10.6 SECONDS (9.7-12.2) 08/08/17 17:36 INR 1.0 08/08/17 17:36 APTT 24 SECONDS (21-34) 08/08/17 17:36 Assessment and Plan (1) Mental status change Status: Acute (2) Septicemia Status: Acute (3) UTI (urinary tract infection) Status: Acute
--- NOTE | 2017-08-10 12:10 | CP.CCUPN ---
<BriiJessica - Last Filed: 08/10/17 12:12> CCU Subjective - Physician Review Events Since Last Encounter (Free Text): 08/10/17 12:08 no acute events overnight Subjective (Free Text): 08/10/17 12:08 ICU Progress note for Dr. Nick Patient seen and examined at bedside. Patient states she feels better than yesterday and had BIPAP overnight. Patient states she feels better. denies fever , chills, nausea, vomiting, diarrhea. Patient admits to pain in her lower abdomen and is aware she has a urinary tract infection Critical Care Time Spent (in minutes): 35 CCU Objective - Vital Signs / Intake & Output Vital Signs (Last 4 hours): Vital Signs Pulse Resp BP Pulse Ox 08/10/17 10:10 79 15 100 08/10/17 10:01 80 21 150/76 08/10/17 10:00 81 23 100 08/10/17 09:50 78 18 99 08/10/17 09:40 82 17 96 08/10/17 09:30 81 12 99 08/10/17 09:20 76 14 99 08/10/17 09:10 75 21 100 08/10/17 09:01 76 19 149/73 100 08/10/17 09:00 76 16 100 08/10/17 08:50 79 16 95 08/10/17 08:40 73 17 100 08/10/17 08:30 77 17 100 08/10/17 08:20 77 17 100 08/10/17 08:10 71 17 100 Intake and Output (Last 8hrs): Intake & Output 08/09/17 08/10/17 08/10/17 22:59 06:59 14:59 Intake Total 640 150 400 Output Total 1100 300 300 Balance -460 -150 100 Weight 284 lb Intake: Intake, IV Amount 150 0 Left External Jugular 0 Right Upper arm 150 Oral 640 400 Output: Urine 1100 300 300 Urine, Voided 1100 300 300 Other: # Bowel Movements 1 0 - Physical Exam Head: Positive for: Atraumatic, Normocephalic Extroacular Muscles: Positive for: EOMI Conjunctiva: Positive for: Normal Mouth: Positive for: Moist Mucous Membranes Pharnyx: Negative for: Muffled/Hoarse Voice, Soft Palate/Uvular Edema Nose (External): Positive for: Atraumatic Nose (Internal): Positive for: Normal Inspection, Moist. Negative for: No Active Bleeding, Epistaxis Neck: Positive for: Normal Range of Motion. Negative for: Paraspinal Tenderness , JVD Respiratory/Chest: Positive for: Clear to Auscultation, Rales Cardiovascular: Positive for: Regular Rate and Rhythm, Normal S1, S2 Upper Extremity: Positive for: Normal Inspection Lower Extremity: Positive for: Normal Inspection Neurological: Positive for: GCS=15, CN II-XII Intact Skin: Positive for: Warm, Dry - Medications Active Medications: Active Medications Generic Name Dose Route Start Last Admin Trade Name Freq PRN Reason Stop Dose Admin Albuterol/Ipratropium 3 ml 08/09/17 02:00 08/10/17 08:53 Duoneb 3 Mg/0.5 Mg (3 Ml) Ud INH 3 ml RQ6 NELLY Administration Anastrozole 1 mg 08/09/17 10:00 08/10/17 09:35 Arimidex 1 Mg Tab PO 1 mg DAILY NELLY Administration Famotidine 20 mg 08/10/17 11:30 Pepcid PO DAILY NELLY Gabapentin 300 mg 08/09/17 10:00 08/10/17 09:35 Neurontin PO 300 mg DAILY NELLY Administration Heparin Sodium (Porcine) 5,000 units 08/09/17 06:00 08/10/17 05:13 Heparin SC 5,000 units Q8 NELLY Administration Cefepime HCl 1 gm in 50 mls @ 100 mls/hr 08/10/17 11:30 Maxipime Iv 1 Gm Premix IVPB Q12H NELLY Insulin Detemir 30 unit 08/09/17 10:00 08/10/17 09:35 Levemir SC 30 unit DAILY NELLY Administration Insulin Human Regular 0 unit 08/09/17 07:30 08/10/17 08:02 Novolin R SC 4 unit ACHS NELLY Administration Protocol Latanoprost 0 ml 08/09/17 22:00 08/09/17 22:31 Xalatan Opht OU 1 ml HS NELLY Administration Montelukast Sodium 10 mg 08/09/17 22:00 08/09/17 21:57 Singulair PO 10 mg HS NELLY Administration Rosuvastatin Calcium 40 mg 08/09/17 22:00 08/09/17 21:57 Crestor PO 40 mg HS NELLY Administration Tramadol HCl 25 mg 08/09/17 18:30 Ultram PO TID PRN Pain, moderate (4-7) - Patient Studies Lab Studies: Microbiology Studies 08/08/17 20:30 Urine Culture - Final Urine,Catheterized Klebsiella Pneumoniae Ssp Pneu 08/08/17 18:00 Blood Culture - Preliminary Blood Gram Negative Tom Gram Stain - Final 08/08/17 18:00 Blood Culture - Preliminary Blood Gram Negative Tom Gram Stain - Final Lab Studies 08/10/17 08/10/17 08/10/17 Range/Units 07:17 06:20 06:18 WBC 11.0 H (4.8-10.8) K/uL RBC 3.40 L (3.80-5.20) Mil/uL Hgb 10.4 L (11.0-16.0) g/dL Hct 30.7 L (34.0-47.0) % MCV 90.4 (81.0-99.0) fL MCH 30.6 (27.0-31.0) pg MCHC 33.9 (33.0-37.0) g/dL RDW 16.0 H (11.5-14.5) % Plt Count 244 (130-400) K/uL MPV 9.6 (7.2-11.7) fL Neut % (Auto) 77.8 H (50.0-75.0) % Lymph % (Auto) 13.5 L (20.0-40.0) % Cotton % (Auto) 8.6 (0.0-10.0) % Eos % (Auto) 0.0 (0.0-4.0) % Baso % (Auto) 0.1 (0.0-2.0) % Neut # 8.6 H (1.8-7.0) K/uL Lymph # 1.5 (1.0-4.3) K/uL Cotton # 0.9 H (0.0-0.8) K/uL Eos # 0.0 (0.0-0.7) K/uL Baso # 0.0 (0.0-0.2) K/uL Sodium 132 (132-148) mmol/L Potassium 3.6 (3.6-5.2) mmol/L Chloride 95 L (98-107) mmol/L Carbon Dioxide 28 (22-30) mmol/L Anion Gap 13 (10-20) BUN 27 H (7-17) mg/dL Creatinine 1.1 (0.7-1.2) mg/dL Est GFR ( Amer) 58 Est GFR (Non-Af Amer) 48 POC Glucose (mg/dL) 286 H (65-110) mg/dL Random Glucose 285 H (65-105) mg/dL Calcium 8.4 L (8.6-10.4) mg/dl Phosphorus 3.1 (2.5-4.5) mg/dL Magnesium 2.0 (1.6-2.3) mg/dL Total Bilirubin 0.7 (0.2-1.3) mg/dL AST 31 (14-36) U/L ALT 39 (9-52) U/L Alkaline Phosphatase 80 (38-126) U/L Total Protein 8.1 (6.3-8.3) g/dL Albumin 3.7 (3.5-5.0) g/dL Globulin 4.4 H (2.2-3.9) gm/dL Albumin/Globulin Ratio 0.8 L (1.0-2.1) Procalcitonin (0.19-0.49) NG/ML 08/10/17 08/09/17 08/09/17 Range/Units 02:22 21:04 16:13 WBC (4.8-10.8) K/uL RBC (3.80-5.20) Mil/uL Hgb (11.0-16.0) g/dL Hct (34.0-47.0) % MCV (81.0-99.0) fL MCH (27.0-31.0) pg MCHC (33.0-37.0) g/dL RDW (11.5-14.5) % Plt Count (130-400) K/uL MPV (7.2-11.7) fL Neut % (Auto) (50.0-75.0) % Lymph % (Auto) (20.0-40.0) % Cotton % (Auto) (0.0-10.0) % Eos % (Auto) (0.0-4.0) % Baso % (Auto) (0.0-2.0) % Neut # (1.8-7.0) K/uL Lymph # (1.0-4.3) K/uL Cotton # (0.0-0.8) K/uL Eos # (0.0-0.7) K/uL Baso # (0.0-0.2) K/uL Sodium (132-148) mmol/L Potassium (3.6-5.2) mmol/L Chloride (98-107) mmol/L Carbon Dioxide (22-30) mmol/L Anion Gap (10-20) BUN (7-17) mg/dL Creatinine (0.7-1.2) mg/dL Est GFR ( Amer) Est GFR (Non-Af Amer) POC Glucose (mg/dL) 305 H 316 H 310 H (65-110) mg/dL Random Glucose (65-105) mg/dL Calcium (8.6-10.4) mg/dl Phosphorus (2.5-4.5) mg/dL Magnesium (1.6-2.3) mg/dL Total Bilirubin (0.2-1.3) mg/dL AST (14-36) U/L ALT (9-52) U/L Alkaline Phosphatase (38-126) U/L Total Protein (6.3-8.3) g/dL Albumin (3.5-5.0) g/dL Globulin (2.2-3.9) gm/dL Albumin/Globulin Ratio (1.0-2.1) Procalcitonin (0.19-0.49) NG/ML 08/09/ Range/Units 10:36 WBC (4.8-10.8) K/uL RBC (3.80-5.20) Mil/uL Hgb (11.0-16.0) g/dL Hct (34.0-47.0) % MCV (81.0-99.0) fL MCH (27.0-31.0) pg MCHC (33.0-37.0) g/dL RDW (11.5-14.5) % Plt Count (130-400) K/uL MPV (7.2-11.7) fL Neut % (Auto) (50.0-75.0) % Lymph % (Auto) (20.0-40.0) % Cotton % (Auto) (0.0-10.0) % Eos % (Auto) (0.0-4.0) % Baso % (Auto) (0.0-2.0) % Neut # (1.8-7.0) K/uL Lymph # (1.0-4.3) K/uL Cotton # (0.0-0.8) K/uL Eos # (0.0-0.7) K/uL Baso # (0.0-0.2) K/uL Sodium (132-148) mmol/L Potassium (3.6-5.2) mmol/L Chloride (98-107) mmol/L Carbon Dioxide (22-30) mmol/L Anion Gap (10-20) BUN (7-17) mg/dL Creatinine (0.7-1.2) mg/dL Est GFR ( Amer) Est GFR (Non-Af Amer) POC Glucose (mg/dL) (65-110) mg/dL Random Glucose (65-105) mg/dL Calcium (8.6-10.4) mg/dl Phosphorus (2.5-4.5) mg/dL Magnesium (1.6-2.3) mg/dL Total Bilirubin (0.2-1.3) mg/dL AST (14-36) U/L ALT (9-52) U/L Alkaline Phosphatase (38-126) U/L Total Protein (6.3-8.3) g/dL Albumin (3.5-5.0) g/dL Globulin (2.2-3.9) gm/dL Albumin/Globulin Ratio (1.0-2.1) Procalcitonin 7.10 H (0.19-0.49) NG/ML Laboratory Results - last 24 hr 08/09/17 08/09/17 08/09/17 10:36 16:13 21:04 WBC RBC Hgb Hct MCV MCH MCHC RDW Plt Count MPV Neut % (Auto) Lymph % (Auto) Cotton % (Auto) Eos % (Auto) Baso % (Auto) Neut # Lymph # Cotton # Eos # Baso # Sodium Potassium Chloride Carbon Dioxide Anion Gap BUN Creatinine Est GFR ( Amer) Est GFR (Non-Af Amer) POC Glucose (mg/dL) 310 H 316 H Random Glucose Calcium Phosphorus Magnesium Total Bilirubin AST ALT Alkaline Phosphatase Total Protein Albumin Globulin Albumin/Globulin Ratio Procalcitonin 7.10 H 08/10/17 08/10/17 08/10/17 02:22 06:18 06:20 WBC 11.0 H RBC 3.40 L Hgb 10.4 L Hct 30.7 L MCV 90.4 MCH 30.6 MCHC 33.9 RDW 16.0 H Plt Count 244 MPV 9.6 Neut % (Auto) 77.8 H Lymph % (Auto) 13.5 L Cotton % (Auto) 8.6 Eos % (Auto) 0.0 Baso % (Auto) 0.1 Neut # 8.6 H Lymph # 1.5 Cotton # 0.9 H Eos # 0.0 Baso # 0.0 Sodium 132 Potassium 3.6 Chloride 95 L Carbon Dioxide 28 Anion Gap 13 BUN 27 H Creatinine 1.1 Est GFR ( Amer) 58 Est GFR (Non-Af Amer) 48 POC Glucose (mg/dL) 305 H Random Glucose 285 H Calcium 8.4 L Phosphorus 3.1 Magnesium 2.0 Total Bilirubin 0.7 AST 31 ALT 39 Alkaline Phosphatase 80 Total Protein 8.1 Albumin 3.7 Globulin 4.4 H Albumin/Globulin Ratio 0.8 L Procalcitonin 08/10/17 07:17 WBC RBC Hgb Hct MCV MCH MCHC RDW Plt Count MPV Neut % (Auto) Lymph % (Auto) Cotton % (Auto) Eos % (Auto) Baso % (Auto) Neut # Lymph # Cotton # Eos # Baso # Sodium Potassium Chloride Carbon Dioxide Anion Gap BUN Creatinine Est GFR ( Amer) Est GFR (Non-Af Amer) POC Glucose (mg/dL) 286 H Random Glucose Calcium Phosphorus Magnesium Total Bilirubin AST ALT Alkaline Phosphatase Total Protein Albumin Globulin Albumin/Globulin Ratio Procalcitonin Fingerstick Blood Sugar Results: 286 Critical Care Progress Note - Ventilator Checklist Head of Bed 30 Degrees: No Daily Sedation Vacation: No Daily Assessment of Readiness to Wean: No Daily Spontaneous Breathing Trial: No PUD Prophalyxis: Yes DVT Prophylaxis: Yes - Extremities/Vascular Does the Patient have a Central Venous Catheter?: No Does the Patient need a Central Venous Catheter?: No Does the Patient have a Taylor Catheter?: No Does the Patient need a Taylor Catheter?: No - Prophylaxis GI Prophylaxis GI: Pepsid - Prophylaxis DVT Prophylaxis DVT: Heparin SQ - Nutrition Nutrition: Nutrition Category Date Time Status Consistent Carbohydrate [DIET] Diets 08/10/17 Lunch Active Assessment/Plan - Assessment and Plan (Free Text) Assessment: Assessment: 76 F with PMH hypertension, diabetes, osteoarthritis, rheumatoid arthritis, history of craniotomy, and the recurrent infection in the past and UTI Plan Neuro: Sedation: none Pain: Tramadol 25mg PO TID PRN 08/08 CT head: small focus of hyperattenuation in right frontal lobe, questionable artifact Cardio: monitor vitals Pulm: 08/08 CXR moderate venous congestion, calcification at aorta 08/09 CXR no change, calcification at aorta Montelukast 10mg POQHS Endo: Levemir 30u SC QD Insulin Human Regular SC Accucheck ACHS f/u A1c GI: 08/10 Lipase 8456 08/10 FOBT positive : 08/09 UA: UTI 08/08 Urine culture: Klebsiella Cefepime 1gm IVPB Q12H Renal: I/O: 24Hr UOP:2200cc No taylor Heme: H/H 10.4/30.7 Oncology: Anastrozole 1mg POQD MSK: Duplex lower extremity artery scan: no dvt, no thrombus ID: f/u AM CBC 08/10 WBC 11.0 from 8.2 08/08 Urine culture: Klebsiella 08/08 Blood culture: Gram negative rods Cefepime 1gm IVPB Q12H Prophylaxis: DVT: Heparin 5000u SC Q8H GI: Pepcid 20mg POQD Fluids: IV fluids transfer to 6T telemetry today Dr. Park Teresa, DO PGY1 - Date & Time Date: 08/10/17 Time: 12:12 <Marianna Nick - Last Filed: 08/10/17 18:52> CCU Objective - Vital Signs / Intake & Output Vital Signs (Last 4 hours): Vital Signs Temp Pulse Resp BP Pulse Ox 08/10/17 18:00 76 19 08/10/17 17:50 76 18 08/10/17 17:40 85 13 08/10/17 17:30 76 22 08/10/17 17:20 76 22 08/10/17 17:10 78 14 08/10/17 17:00 75 13 08/10/17 16:50 75 25 H 08/10/17 16:40 107 H 24 08/10/17 16:30 75 20 67 L 08/10/17 16:20 76 15 66 L 08/10/17 16:18 77 17 162/78 H 63 L 08/10/17 16:10 75 18 66 L 08/10/17 16:00 97.1 F L 73 16 67 L 08/10/17 15:50 73 14 08/10/17 15:40 78 21 08/10/17 15:30 78 17 08/10/17 15:20 74 20 100 08/10/17 15:18 77 12 153/82 H 08/10/17 15:10 78 18 08/10/17 15:00 75 20 69 L Intake and Output (Last 8hrs): Intake & Output 08/10/17 08/10/17 08/10/17 06:59 14:59 22:59 Intake Total 150 700 200 Output Total 300 600 200 Balance -150 100 0 Weight 284 lb Intake: Intake, IV Amount 150 50 0 Left External Jugular 50 0 Right Upper arm 150 Oral 650 200 Output: Urine 300 600 200 Urine, Voided 300 600 200 Other: # Bowel Movements 1 0 - Medications Active Medications: Active Medications Generic Name Dose Route Start Last Admin Trade Name Freq PRN Reason Stop Dose Admin Albuterol/Ipratropium 3 ml 08/09/17 02:00 08/10/17 14:37 Duoneb 3 Mg/0.5 Mg (3 Ml) Ud INH Not Given RQ6 NELLY Anastrozole 1 mg 08/09/17 10:00 08/10/17 09:35 Arimidex 1 Mg Tab PO 1 mg DAILY NELLY Administration Famotidine 20 mg 08/10/17 11:30 08/10/17 14:21 Pepcid PO 20 mg DAILY NELLY Administration Gabapentin 300 mg 08/09/17 10:00 08/10/17 09:35 Neurontin PO 300 mg DAILY NELLY Administration Heparin Sodium (Porcine) 5,000 units 08/09/17 06:00 08/10/17 14:21 Heparin SC 5,000 units Q8 NELLY Administration Cefepime HCl 1 gm in 50 mls @ 100 mls/hr 08/10/17 11:30 08/10/17 12:14 Maxipime Iv 1 Gm Premix IVPB 100 mls/hr Q12H NELLY Administration Insulin Detemir 30 unit 08/09/17 10:00 08/10/17 09:35 Levemir SC 30 unit DAILY NELLY Administration Insulin Human Regular 0 unit 08/09/17 07:30 08/10/17 16:31 Novolin R SC 4 unit ACHS NELLY Administration Protocol Latanoprost 0 ml 08/09/17 22:00 08/09/17 22:31 Xalatan Opht OU 1 ml HS NELLY Administration Montelukast Sodium 10 mg 08/09/17 22:00 08/09/17 21:57 Singulair PO 10 mg HS NELLY Administration Rosuvastatin Calcium 40 mg 08/09/17 22:00 08/09/17 21:57 Crestor PO 40 mg HS NELLY Administration Tramadol HCl 25 mg 08/09/17 18:30 08/10/17 16:44 Ultram PO 25 mg TID PRN Administration Pain, moderate (4-7) - Patient Studies Lab Studies: Microbiology Studies 08/08/17 18:00 Blood Culture - Preliminary Blood Gram Negative Tom Gram Stain - Final 08/08/17 18:00 Blood Culture - Preliminary Blood Gram Negative Tom Gram Stain - Final 08/08/17 20:30 Urine Culture - Final Urine,Catheterized Klebsiella Pneumoniae Ssp Pneu Lab Studies 08/10/17 08/10/17 08/10/17 Range/Units 16:21 12:13 07:17 WBC (4.8-10.8) K/uL RBC (3.80-5.20) Mil/uL Hgb (11.0-16.0) g/dL Hct (34.0-47.0) % MCV (81.0-99.0) fL MCH (27.0-31.0) pg MCHC (33.0-37.0) g/dL RDW (11.5-14.5) % Plt Count (130-400) K/uL MPV (7.2-11.7) fL Neut % (Auto) (50.0-75.0) % Lymph % (Auto) (20.0-40.0) % Cotton % (Auto) (0.0-10.0) % Eos % (Auto) (0.0-4.0) % Baso % (Auto) (0.0-2.0) % Neut # (1.8-7.0) K/uL Lymph # (1.0-4.3) K/uL Cotton # (0.0-0.8) K/uL Eos # (0.0-0.7) K/uL Baso # (0.0-0.2) K/uL Sodium (132-148) mmol/L Potassium (3.6-5.2) mmol/L Chloride (98-107) mmol/L Carbon Dioxide (22-30) mmol/L Anion Gap (10-20) BUN (7-17) mg/dL Creatinine (0.7-1.2) mg/dL Est GFR ( Amer) Est GFR (Non-Af Amer) POC Glucose (mg/dL) 268 H 338 H 286 H (65-110) mg/dL Random Glucose (65-105) mg/dL Calcium (8.6-10.4) mg/dl Phosphorus (2.5-4.5) mg/dL Magnesium (1.6-2.3) mg/dL Total Bilirubin (0.2-1.3) mg/dL AST (14-36) U/L ALT (9-52) U/L Alkaline Phosphatase (38-126) U/L Total Protein (6.3-8.3) g/dL Albumin (3.5-5.0) g/dL Globulin (2.2-3.9) gm/dL Albumin/Globulin Ratio (1.0-2.1) 08/10/17 08/10/17 08/10/17 Range/Units 06:20 06:18 02:22 WBC 11.0 H (4.8-10.8) K/uL RBC 3.40 L (3.80-5.20) Mil/uL Hgb 10.4 L (11.0-16.0) g/dL Hct 30.7 L (34.0-47.0) % MCV 90.4 (81.0-99.0) fL MCH 30.6 (27.0-31.0) pg MCHC 33.9 (33.0-37.0) g/dL RDW 16.0 H (11.5-14.5) % Plt Count 244 (130-400) K/uL MPV 9.6 (7.2-11.7) fL Neut % (Auto) 77.8 H (50.0-75.0) % Lymph % (Auto) 13.5 L (20.0-40.0) % Cotton % (Auto) 8.6 (0.0-10.0) % Eos % (Auto) 0.0 (0.0-4.0) % Baso % (Auto) 0.1 (0.0-2.0) % Neut # 8.6 H (1.8-7.0) K/uL Lymph # 1.5 (1.0-4.3) K/uL Cotton # 0.9 H (0.0-0.8) K/uL Eos # 0.0 (0.0-0.7) K/uL Baso # 0.0 (0.0-0.2) K/uL Sodium 132 (132-148) mmol/L Potassium 3.6 (3.6-5.2) mmol/L Chloride 95 L (98-107) mmol/L Carbon Dioxide 28 (22-30) mmol/L Anion Gap 13 (10-20) BUN 27 H (7-17) mg/dL Creatinine 1.1 (0.7-1.2) mg/dL Est GFR ( Amer) 58 Est GFR (Non-Af Amer) 48 POC Glucose (mg/dL) 305 H (65-110) mg/dL Random Glucose 285 H (65-105) mg/dL Calcium 8.4 L (8.6-10.4) mg/dl Phosphorus 3.1 (2.5-4.5) mg/dL Magnesium 2.0 (1.6-2.3) mg/dL Total Bilirubin 0.7 (0.2-1.3) mg/dL AST 31 (14-36) U/L ALT 39 (9-52) U/L Alkaline Phosphatase 80 (38-126) U/L Total Protein 8.1 (6.3-8.3) g/dL Albumin 3.7 (3.5-5.0) g/dL Globulin 4.4 H (2.2-3.9) gm/dL Albumin/Globulin Ratio 0.8 L (1.0-2.1) 08/09/17 Range/Units 21:04 WBC (4.8-10.8) K/uL RBC (3.80-5.20) Mil/uL Hgb (11.0-16.0) g/dL Hct (34.0-47.0) % MCV (81.0-99.0) fL MCH (27.0-31.0) pg MCHC (33.0-37.0) g/dL RDW (11.5-14.5) % Plt Count (130-400) K/uL MPV (7.2-11.7) fL Neut % (Auto) (50.0-75.0) % Lymph % (Auto) (20.0-40.0) % Cotton % (Auto) (0.0-10.0) % Eos % (Auto) (0.0-4.0) % Baso % (Auto) (0.0-2.0) % Neut # (1.8-7.0) K/uL Lymph # (1.0-4.3) K/uL Cotton # (0.0-0.8) K/uL Eos # (0.0-0.7) K/uL Baso # (0.0-0.2) K/uL Sodium (132-148) mmol/L Potassium (3.6-5.2) mmol/L Chloride (98-107) mmol/L Carbon Dioxide (22-30) mmol/L Anion Gap (10-20) BUN (7-17) mg/dL Creatinine (0.7-1.2) mg/dL Est GFR ( Amer) Est GFR (Non-Af Amer) POC Glucose (mg/dL) 316 H (65-110) mg/dL Random Glucose (65-105) mg/dL Calcium (8.6-10.4) mg/dl Phosphorus (2.5-4.5) mg/dL Magnesium (1.6-2.3) mg/dL Total Bilirubin (0.2-1.3) mg/dL AST (14-36) U/L ALT (9-52) U/L Alkaline Phosphatase (38-126) U/L Total Protein (6.3-8.3) g/dL Albumin (3.5-5.0) g/dL Globulin (2.2-3.9) gm/dL Albumin/Globulin Ratio (1.0-2.1) Laboratory Results - last 24 hr 08/09/17 08/10/17 08/10/17 21:04 02:22 06:18 WBC RBC Hgb Hct MCV MCH MCHC RDW Plt Count MPV Neut % (Auto) Lymph % (Auto) Cotton % (Auto) Eos % (Auto) Baso % (Auto) Neut # Lymph # Cotton # Eos # Baso # Sodium 132 Potassium 3.6 Chloride 95 L Carbon Dioxide 28 Anion Gap 13 BUN 27 H Creatinine 1.1 Est GFR ( Amer) 58 Est GFR (Non-Af Amer) 48 POC Glucose (mg/dL) 316 H 305 H Random Glucose 285 H Calcium 8.4 L Phosphorus 3.1 Magnesium 2.0 Total Bilirubin 0.7 AST 31 ALT 39 Alkaline Phosphatase 80 Total Protein 8.1 Albumin 3.7 Globulin 4.4 H Albumin/Globulin Ratio 0.8 L 08/10/17 08/10/17 08/10/17 06:20 07:17 12:13 WBC 11.0 H RBC 3.40 L Hgb 10.4 L Hct 30.7 L MCV 90.4 MCH 30.6 MCHC 33.9 RDW 16.0 H Plt Count 244 MPV 9.6 Neut % (Auto) 77.8 H Lymph % (Auto) 13.5 L Cotton % (Auto) 8.6 Eos % (Auto) 0.0 Baso % (Auto) 0.1 Neut # 8.6 H Lymph # 1.5 Cotton # 0.9 H Eos # 0.0 Baso # 0.0 Sodium Potassium Chloride Carbon Dioxide Anion Gap BUN Creatinine Est GFR ( Amer) Est GFR (Non-Af Amer) POC Glucose (mg/dL) 286 H 338 H Random Glucose Calcium Phosphorus Magnesium Total Bilirubin AST ALT Alkaline Phosphatase Total Protein Albumin Globulin Albumin/Globulin Ratio 08/10/17 16:21 WBC RBC Hgb Hct MCV MCH MCHC RDW Plt Count MPV Neut % (Auto) Lymph % (Auto) Cotton % (Auto) Eos % (Auto) Baso % (Auto) Neut # Lymph # Cotton # Eos # Baso # Sodium Potassium Chloride Carbon Dioxide Anion Gap BUN Creatinine Est GFR ( Amer) Est GFR (Non-Af Amer) POC Glucose (mg/dL) 268 H Random Glucose Calcium Phosphorus Magnesium Total Bilirubin AST ALT Alkaline Phosphatase Total Protein Albumin Globulin Albumin/Globulin Ratio Critical Care Progress Note - Nutrition Nutrition: Nutrition Category Date Time Status Consistent Carbohydrate [DIET] Diets 08/10/17 Lunch Active Assessment/Plan (1) Mental status change Current Visit: Yes Status: Acute (2) Septicemia Current Visit: Yes Status: Acute (3) UTI (urinary tract infection) Current Visit: Yes Status: Acute Attending/Attestation - Attestation I have personally seen and examined this patient.: Yes I have fully participated in the care of the patient.: Yes I have reviewed all pertinent clinical information: Yes Notes (Text): 08/10/17 18:52 agree with icu note
[2017-08-10] MEDS: Cefepime IV 1 gm in Dextrose 1 GM/50 ML BAG IVPB SCH (12:14)
[2017-08-10] MEDS: Tramadol 25 mg PO PRN (16:44)
[2017-08-10] MEDS: Latanoprost 2.5 ml Opht Soln OU SCH (21:48)
[2017-08-11] MEDS: Cefepime IV 1 gm in Dextrose 1 GM/50 ML BAG IVPB SCH ×2 (00:08→10:38)
[2017-08-11] MEDS: Albuterol-Ipratrop 3 mg / 0.5 (3 ml) UD INH SCH ×5 (01:54→20:10)
[2017-08-11] MEDS: (Novolin R) Insulin Human Regular 100 units/ml vial SC SCH ×4 (08:34→21:59)
[2017-08-11] MEDS: Insulin Detemir 100 units/ml Vial (Levemir) SC SCH (09:22)
[2017-08-11] MEDS: Tramadol 25 mg PO PRN ×2 (13:49→20:00)
[2017-08-11] MEDS: Latanoprost 2.5 ml Opht Soln OU SCH (21:59)
--- NOTE | 2017-08-11 22:54 | CP.PCM.CON ---
History of Present Illness - History of Present Illness History of Present Illness: INFECTIOUS DISEASE CONSULT PATIENT SEEN. CHART REVIEWED CONSULT DICTATED. DICTATION NUMBER; [id number]. SEE ORDER SHEET. Past Patient History - Past Medical History & Family History Past Medical History?: Yes - Past Social History Smoking Status: Never Smoked - CARDIAC Hx Hypertension: Yes - PULMONARY Hx Chronic Obstructive Pulmonary Disease (COPD): Yes - NEUROLOGICAL Hx Neurological Disorder: Yes (NEUROPATHY) Other/Comment: HX CRANIOTOMY BENIGN BRAIN TUMOR; POLYNEUROPATHY - HEENT Hx HEENT Problems: Yes Hx Cataracts: Yes Hx Glaucoma: Yes - RENAL Hx Chronic Kidney Disease: No - ENDOCRINE/METABOLIC Hx Diabetes Mellitus Type 2: Yes - HEMATOLOGICAL/ONCOLOGICAL Hx Blood Disorders: Yes Hx Cancer: Yes (BREAST MASTECTOMY) - INTEGUMENTARY Hx Dermatological Problems: No - MUSCULOSKELETAL/RHEUMATOLOGICAL Hx Arthritis: Yes Hx Rheumatoid Arthritis: Yes - GASTROINTESTINAL Hx Gastrointestinal Disorders: Yes Hx Gastroesophageal Reflux: Yes Other/Comment: stomach surgery for cysts - GENITOURINARY/GYNECOLOGICAL Hx Genitourinary Disorders: No - PSYCHIATRIC Hx Substance Use: No - SURGICAL HISTORY Hx Surgeries: Yes Hx Mastectomy: Yes (left breast) Other/Comment: CRANIOTOMY 1994 BENIGN BRAIN TUMOR REMOVAL ABD CYST - ANESTHESIA Hx Anesthesia: Yes Hx Anesthesia Reactions: No Hx Malignant Hyperthermia: No Meds Allergies/Adverse Reactions: Allergies Allergy/AdvReac Type Severity Reaction Status Date / Time No Known Allergies Allergy Verified 08/08/17 17:00 - Medications Medications: Current Medications Albuterol/Ipratropium (Duoneb 3 Mg/0.5 Mg (3 Ml) Ud) 3 ml INH RQ6 [facility]LLY Last Admin: 08/11/17 20:10 Dose: 3 ml Anastrozole (Arimidex 1 Mg Tab) 1 mg PO DAILY [facility] Last Admin: 08/11/17 09:35 Dose: 1 mg Famotidine (Pepcid) 20 mg PO DAILY [facility] Last Admin: 08/11/17 09:21 Dose: 20 mg Gabapentin (Neurontin) 300 mg PO DAILY [facility] Last Admin: 08/11/17 09:21 Dose: 300 mg Heparin Sodium (Porcine) (Heparin) 5,000 units SC Q8 NELLY Last Admin: 08/11/17 21:58 Dose: 5,000 units Cefepime HCl (Maxipime Iv 1 Gm Premix) 1 gm in 50 mls @ 100 mls/hr IVPB Q12H [facility] Last Admin: 08/11/17 10:38 Dose: 100 mls/hr Insulin Detemir (Levemir) 30 unit SC DAILY [facility] Last Admin: 08/11/17 09:22 Dose: 30 unit Insulin Human Regular (Novolin R) 0 unit SC ACHS NELLY PRN Reason: Protocol Last Admin: 08/11/17 21:59 Dose: Not Given Latanoprost (Xalatan Opht) 0 ml OU HS NELLY Last Admin: 08/11/17 21:59 Dose: 2.5 ml Losartan Potassium (Cozaar) 25 mg PO DAILY [facility] Montelukast Sodium (Singulair) 10 mg PO HS [facility] Last Admin: 08/11/17 21:58 Dose: 10 mg Rosuvastatin Calcium (Crestor) 40 mg PO HS [facility] Last Admin: 08/11/17 21:58 Dose: 40 mg Tramadol HCl (Ultram) 25 mg PO TID PRN PRN Reason: Pain, moderate (4-7) Last Admin: 08/11/17 20:00 Dose: 25 mg Results - Vital Signs Recent Vital Signs: Last Vital Signs Temp 98.4 F 08/11/17 19:44 Pulse 83 08/11/17 19:44 Resp 20 08/11/17 19:44 BP 137/76 08/11/17 19:44 Pulse Ox 97 08/11/17 19:44 - Labs Result Diagrams: 08/12/17 08:12 08/12/17 08:12 Labs: Laboratory Results - last 24 hr 08/11/17 08/11/17 08/11/17 07:12 11:19 16:22 POC Glucose (mg/dL) 181 H 370 H 367 H 08/11/17 21:12 POC Glucose (mg/dL) 221 H
[2017-08-11] MEDS ORDERED: Gentamicin 160 MG in Sodium Chloride 0.9% 100 ML IVPB ONE (23:01)
[2017-08-11] MEDS ORDERED: DEXTROSE 5% IVPB ONE (23:30)
[2017-08-11] MEDS ORDERED: WATER IVPB ONE (23:30)
[2017-08-11] MEDS ORDERED: GENTAMICIN IVPB ONE (23:30)
--- NOTE | 2017-08-11 23:31 | CP.PCM.PN ---
Subjective - Date & Time of Evaluation Date of Evaluation: 08/11/17 Time of Evaluation: 23:30 - Subjective Subjective: Patient was transferred to the floor today. Last data patient had some confusion. Patient was also given some anxiety, agitation. Currently patient is sleeping. She is comfortable. Mild dyspnea noted. Medical vital signs stable. No chest pain, no shortness of breath at this time. On examination: Bilateral good air entry, regular heart sound, nontender abdomen. No fever today. Patient has a blood culture positive for Klebsiella, and urine culture also positive. Currently on cefepime. We'll get infectious disease evaluation, PICC line. GI and DVT prophylaxis. Glucose control. Blood pressure control and will follow the patient. I spoke to the patient's daughter Objective - Vital Signs/Intake and Output Vital Signs (last 24 hours): Temp Pulse Resp BP Pulse Ox 98.4 F 83 20 137/76 97 08/11/17 19:44 08/11/17 19:44 08/11/17 19:44 08/11/17 19:44 08/11/17 19:44 Intake and Output: 08/11/17 08/12/17 18:59 06:59 Intake Total 1050 Output Total 300 Balance 750 - Medications Medications: Current Medications Albuterol/Ipratropium (Duoneb 3 Mg/0.5 Mg (3 Ml) Ud) 3 ml INH RQ6 [facility] Last Admin: 08/11/17 20:10 Dose: 3 ml Anastrozole (Arimidex 1 Mg Tab) 1 mg PO DAILY [facility] Last Admin: 08/11/17 09:35 Dose: 1 mg Famotidine (Pepcid) 20 mg PO DAILY [facility] Last Admin: 08/11/17 09:21 Dose: 20 mg Gabapentin (Neurontin) 300 mg PO DAILY [facility] Last Admin: 08/11/17 09:21 Dose: 300 mg Heparin Sodium (Porcine) (Heparin) 5,000 units SC Q8 [facility] Last Admin: 08/11/17 21:58 Dose: 5,000 units Cefepime HCl 1 gm/ Dextrose 50 mls @ 100 mls/hr IVPB Q8H [facility] Gentamicin Sulfate 160 mg/ (Dextrose) 104 mls @ 104 mls/hr IVPB ONCE ONE Stop: 08/12/17 00:29 Insulin Detemir (Levemir) 30 unit SC DAILY [facility] Last Admin: 08/11/17 09:22 Dose: 30 unit Insulin Human Regular (Novolin R) 0 unit SC ACHS [facility] PRN Reason: Protocol Last Admin: 08/11/17 21:59 Dose: Not Given Latanoprost (Xalatan Opht) 0 ml OU HS [facility] Last Admin: 08/11/17 21:59 Dose: 2.5 ml Losartan Potassium (Cozaar) 25 mg PO DAILY [facility] Montelukast Sodium (Singulair) 10 mg PO HS [facility] Last Admin: 08/11/17 21:58 Dose: 10 mg Rosuvastatin Calcium (Crestor) 40 mg PO HS [facility] Last Admin: 08/11/17 21:58 Dose: 40 mg Tramadol HCl (Ultram) 25 mg PO TID PRN PRN Reason: Pain, moderate (4-7) Last Admin: 08/11/17 20:00 Dose: 25 mg - Labs Labs: 08/10/17 06:20 08/10/17 06:18 PT 10.6 SECONDS (9.7-12.2) 08/08/17 17:36 INR 1.0 08/08/17 17:36 APTT 24 SECONDS (21-34) 08/08/17 17:36 Assessment and Plan (1) Mental status change Status: Acute (2) Septicemia Status: Acute (3) UTI (urinary tract infection) Status: Acute
[2017-08-12] MEDS: Albuterol-Ipratrop 3 mg / 0.5 (3 ml) UD INH SCH ×4 (02:26→19:46)
[2017-08-12] MEDS: (Novolin R) Insulin Human Regular 100 units/ml vial SC SCH ×4 (07:30→22:47)
[2017-08-12 08:22] LABS: BASO # 0.1 K/uL (0.0-0.2); BASO % 1.2 % (0.0-2.0); EOS # 0.2 K/uL (0.0-0.7); HEMATOCRIT 30.3 % (34.0-47.0); LYMPH # 2.1 K/uL (1.0-4.3); LYMPH % 26.5 % (20.0-40.0); MEAN CELL VOLUME 90.9 fL (81.0-99.0); MEAN CORPUSCULAR HEMOGLOBIN 31.6 pg (27.0-31.0); MEAN CORPUSCULAR HGB CONC 34.8 g/dL (33.0-37.0); MEAN PLATELET VOLUME 9.3 fL (7.2-11.7); MONO # 0.8 K/uL (0.0-0.8); MONO % 10.1 % (0.0-10.0); RED CELL DISTRIBUTION WIDTH 15.6 % (11.5-14.5); WHITE BLOOD COUNT 7.8 K/uL (4.8-10.8)
[2017-08-12 08:56] LABS: ALB/GLOB RATIO 1.1 (1.0-2.1); ALKALINE PHOSPHATASE 71 U/L (38-126); ALT/SGPT 18 U/L (9-52); AST/SGOT 20 U/L (14-36); BILIRUBIN,DIRECT 0.5 mg/dL (0.0-0.4); BLOOD UREA NITROGEN 15 mg/dL (7-17); CALCIUM 8.9 mg/dl (8.6-10.4); CARBON DIOXIDE 30 mmol/L (22-30); CHLORIDE 95 mmol/L (98-107); GFR AFRICAN-AMERICAN > 60; GLUCOSE,RANDOM 157 mg/dL (65-105); POTASSIUM 3.8 mmol/L (3.6-5.2); SODIUM 132 mmol/L (132-148); TOTAL PROTEIN 6.6 g/dL (6.3-8.3)
--- NOTE | 2017-08-12 09:36 | US ---
HISTORY: r/o kidney stones/hydro COMPARISON: CT abdomen and pelvis from 03/08/2016 PROCEDURE: Ultrasound of the abdomen and Kidneys TECHNIQUE: Grayscale imaging was performed. FINDINGS: LIVER: Measures 18.2 cm. There is diffuse increased echogenicity of the liver parenchyma. No mass. No intrahepatic bile duct dilatation. GALLBLADDER: There are no gallstones, wall thickening or pericholecystic fluid. The sonographic Steen's sign is negative. COMMON BILE DUCT: Measures 7 mm. No stones. No dilatation. PANCREAS: Unremarkable as visualized. No mass. No ductal dilatation. RIGHT KIDNEY: Measures 10.7cm. Normal echogenicity. No calculus, mass, or hydronephrosis. LEFT KIDNEY: Measures 9.9cm. Normal echogenicity. No calculus, mass, or hydronephrosis. There is a 2.1 x 2.0 x 2.3 cm hypoechoic lesion in the interpolar region. SPLEEN: Normal in size and contour. No mass. AORTA: No aneurysmal dilatation. IVC: Unremarkable. OTHER FINDINGS: None. RIGHT KIDNEY: Measures: 18.2 cm. IMPRESSION: Mild hepatomegaly. Diffuse increased echogenicity in the liver may reflect hepatic steatosis however parenchymal infectious/ inflammatory etiologies cannot be entirely excluded. Clinical and laboratory correlation is advised. . No cholelithiasis or biliary dilatation. 2.1 cm round lesion in the interpolar region is not completely characterized on ultrasound examination and could represent a complicated cyst however this solid mass cannot be entirely excluded. A dedicated CT scan of the abdomen without and with intravenous contrast with renal protocol is recommended for further characterization.0
[2017-08-12] MEDS: Insulin Detemir 100 units/ml Vial (Levemir) SC SCH (11:56)
--- NOTE | 2017-08-12 13:38 | PCM.SURG1 ---
Surgeon's Initial Post Op Note - Surgeon's Notes Surgeon: Reilly Boone MD Senior Analyst Programmer: NONE Type of Anesthesia: Local Pre-Operative Diagnosis: Urosepsis Operative Findings: US showed patent brachial vein Post-Operative Diagnosis: Urosepsis Operation Performed: 38 cm Specimen/Specimens Removed: None Estimated Blood Loss: EBL {In ML}: 2 Blood Products Given: N/A Drains Used: No Drains Post-Op Condition: Fair Date of Surgery/Procedure: 08/12/17 Time of Surgery/Procedure: 13:30
--- NOTE | 2017-08-12 18:54 | CP.PCM.PN ---
Subjective - Date & Time of Evaluation Date of Evaluation: 08/12/17 Time of Evaluation: 18:54 - Subjective Subjective: CHIEF COMPLAINTS TODAY : afebrile, S/P YARI PICC LINE 08/12/17. DENIES DYSURIA ROS. HEENT : N. Resp : No SOB, +VE wheezing, cough Cardio : No CP, PND orthopnea GI : No abd. 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 Musculoskel : N Ext. : Pedal pulses intact, no edema or calf pain Derm : N Psych : N. PE. Pt. is alert awake in no distress. V.S As noted in the chart Head ,ear nose,throat and eyes : Normal. Neck : Supple with normal carotids. Lungs: B/L EXPIRATORY WHEEZE. Heart : S1 & S2 normal . . No murmur. S4 + Abd : Soft non tender with normal bowel sounds. Neuro : Moves all ext. with no localized deficit. Ext : No edema with intact pulses. Neg. calf tenderness Derm : No rashes or decubitus ulcer. Radiology/Labs . wbc 7.8 BETTER cREATININE 0.9/bun 15 LFTS N. BLOOD CULTURES 08/08/17 2:2 SETS POSITIVE FOR KLEBSIELLA PNEUMONIAE S-CEFEPIME , PIP/TAZO. URINE CULTURE 08/08/17; KLEBSIELLA PNEUMONIAE Asssessment : S/P SEPTIC SHOCK KLEBSIELLA PNEUMONIAE bacteremia Urosepsis r/o abscess/nephrolithiasis. Uncontrolled diabetes mellitus HYPONATREMIA-IMPROVING. Rheumatoid arthritis. s/p right craniotomy, benign tumor/abscess. s/p left breast mastectomy. Plan : Repeat blood cultures 2 out of 2 sets 15 minutes apart from the catheter Continue IV cefepime 1 g every 8 hourly. PATIENT GOT ONE DOSE OF GENTAMICIN 160 MG ON 08/11/17. CONTINUE iv GENTAMICIN 80 MG ONCE DAILY 4 DOSES-ONE DOSE TODAY. WILL F/U ABDOMINAL/RENAL ULTRASOUND ORDERED. FOLLOW-UP RENAL FUNCTIONS CLOSELY. cASE DISCUSSED WITH THE STAFF. Objective - Vital Signs/Intake and Output Vital Signs (last 24 hours): Temp Pulse Resp BP Pulse Ox 98.4 F 85 20 129/60 99 08/12/17 16:00 08/12/17 16:00 08/12/17 16:00 08/12/17 16:00 08/12/17 16:00 Intake and Output: 08/12/17 08/12/17 06:59 18:59 Output Total 1 Balance -1 - Medications Medications: Current Medications Albuterol/Ipratropium (Duoneb 3 Mg/0.5 Mg (3 Ml) Ud) 3 ml INH RQ6 [facility] Last Admin: 08/12/17 13:35 Dose: Not Given Anastrozole (Arimidex 1 Mg Tab) 1 mg PO DAILY [facility] Last Admin: 08/12/17 11:55 Dose: 1 mg Famotidine (Pepcid) 20 mg PO DAILY [facility] Last Admin: 08/12/17 11:55 Dose: 20 mg Gabapentin (Neurontin) 300 mg PO DAILY [facility] Last Admin: 08/12/17 11:57 Dose: 300 mg Heparin Sodium (Porcine) (Heparin) 5,000 units SC Q8 [facility] Last Admin: 08/12/17 14:00 Dose: Not Given Cefepime HCl 1 gm/ Dextrose 50 mls @ 100 mls/hr IVPB Q8H [facility] Last Admin: 08/12/17 14:26 Dose: 100 mls/hr Insulin Detemir (Levemir) 30 unit SC DAILY [facility] Last Admin: 08/12/17 11:56 Dose: 30 unit Insulin Human Regular (Novolin R) 0 unit SC ACHS [facility] PRN Reason: Protocol Last Admin: 08/12/17 16:24 Dose: 4 unit Latanoprost (Xalatan Opht) 0 ml OU HS [facility] Last Admin: 08/11/17 21:59 Dose: 2.5 ml Losartan Potassium (Cozaar) 25 mg PO DAILY [facility] Last Admin: 08/12/17 11:56 Dose: 25 mg Montelukast Sodium (Singulair) 10 mg PO HS [facility] Last Admin: 08/11/17 21:58 Dose: 10 mg Rosuvastatin Calcium (Crestor) 40 mg PO HS [facility] Last Admin: 08/11/17 21:58 Dose: 40 mg Tramadol HCl (Ultram) 25 mg PO TID PRN PRN Reason: Pain, moderate (4-7) Last Admin: 08/11/17 20:00 Dose: 25 mg - Labs Labs: 08/12/17 08:12 08/12/17 08:12 PT 10.6 SECONDS (9.7-12.2) 08/08/17 17:36 INR 1.0 08/08/17 17:36 APTT 24 SECONDS (21-34) 08/08/17 17:36
[2017-08-12 20:41] LABS: RBC URINE 3 /hpf (0-3); TRANSITIONAL EPITHIAL 1 /hpf (0-3); URINE BACTERIA OCC (<OCC); URINE BILIRUBIN NEGATIVE (NEGATIVE); URINE BLOOD NEGATIVE (NEGATIVE); URINE COLOR Yellow (YELLOW); URINE GLUCOSE (UA) 3+ mg/dL (Normal); URINE KETONE TRACE mg/dL (NEGATIVE); URINE LEUKOCYTE ESTERASE 1+ Leu/uL (Negative); URINE PROTEIN 2+ mg/dL (NEGATIVE); URINE UROBILINOGEN NORMAL mg/dL (0.2-1.0); WBC URINE 13 /hpf (0-5)
[2017-08-12] MEDS: Latanoprost 2.5 ml Opht Soln OU SCH (21:30)
[2017-08-12] MEDS: Tramadol 25 mg PO PRN (21:36)
--- NOTE | 2017-08-13 00:04 | CON ---
DATE: 08/11/2017 INFECTIOUS DISEASE CONSULTATION REQUESTED BY: Dr. Nick. REASON FOR CONSULTATION: Septic shock, gram-negative sepsis and weakness. HISTORY OF PRESENT ILLNESS: Patient is a 76-year-old female with multiple medical problems including diabetes, hypertension, rheumatoid arthritis, hypercholesterolemia, history of brain surgery with right craniotomy and abscess drainage with history of benign tumor resection, now admitted on 08/08/2017, because of weakness, altered mental status and shaking chills. Patient also is complaining of small amounts of urine at increasing frequency, but denied any dysuria on admission. She denied any hematuria or pain during micturition. Patient also was complaining of feeling very weak and not eating well for few days. Patient was found to be lethargic and shivering on admission as reported and was found to have a fever of 103 rectally. Appropriate cultures were obtained and patient was started on IV antibiotics. Blood cultures today on 08/08/2017, two sets were reported positive for Klebsiella pneumoniae, sensitive to pip tazo, cefepime, Cipro and imipenem. Also urine cultures came back positive for Klebsiella pneumoniae. Infectious disease consultation requested by PMD for the above complaints. Patient presently on IV cefepime 1 g q. 12 hourly. Also noted that patient was having increasing leukocytosis from admission onwards, presently WBC 11.8. Chest x-ray on admission was unremarkable with negative duplex venous studies of both legs. CT head done on initial admission showed chronic findings with right craniotomy. PAST MEDICAL HISTORY: As above. Hypertension, diabetes, rheumatoid arthritis, hypercholesterolemia, and history of right craniotomy with benign tumor removal. PAST SURGICAL HISTORY: Also consists of left breast mastectomy, brain surgery and craniotomy and abscess drainage. ALLERGIES: NONE KNOWN. FAMILY HISTORY: Unremarkable and noncontributory. REVIEW OF SYSTEMS: RESPIRATORY: Presently denies cough, but complains increasing wheezing. CARDIOVASCULAR SYSTEM: Denies any chest pains or palpitations. GASTROINTESTINAL AND GENITOURINARY: Unremarkable except for frequency in micturition. CENTRAL NERVOUS SYSTEM: Presently awake and alert as noted and moving all extremities. Patient does not have a Keys catheter in place. MEDICATIONS: As reviewed by EMR. Patient presently on cefepime 1 g q. 12. PHYSICAL EXAMINATION: GENERAL: Patient is awake and alert. VITAL SIGNS: Presently, fever is trending down. T-max of 99.8. Blood pressure 150/76, respirations 15 per minute, pulse of 100-98 per minute. HEENT: Pupils equal, reactive to light and accommodation. Extraocular movements are full. Fundus negative. Sclerae nonicteric. Conjunctivae normal. JVP not elevated. Pharynx, slightly hoarse voice. No congestion of tonsils noted. NECK: Supple. LUNGS: Expiratory wheeze. CARDIOVASCULAR: S1, S2. No murmur or gallop. ABDOMEN: Soft, nontender. Bowel sounds are present. EXTREMITIES: No cyanosis, clubbing or edema. CENTRAL NERVOUS SYSTEM: Moves all extremities. SKIN: Dry and warm. Medications as per chart reviewed. LABORATORY DATA: WBC is 11.8, H and H of 10.4 and 30.7, platelets 244. Creatinine 1.1, BUN of 27. Liver function tests are normal. Chest x-ray, negative infiltrate. Duplex scan negative for DVT. CT head as reported, chronic findings, right craniotomy. Blood cultures on 08/08/2017, two out of two sets positive for Klebsiella pneumoniae. Urine culture on 08/08/2017, positive for Klebsiella pneumoniae. IMPRESSION: 1. Septic shock. 2. Gram-negative sepsis with Klebsiella pneumoniae, source most likely genitourinary. 3. Urosepsis. 4. Uncontrolled diabetes mellitus. 5. Hypotension, which has improved. 6. Diabetes mellitus. 7. Rheumatoid arthritis. 8. History of right-sided craniotomy and left breast mastectomy. Suggest pancultures. We will get sed rate, C-reactive proteins. Increase IV cefepime to 1 g q. 8 hourly for now. Patient is moderately obese with a weight of 284 pounds. Monitor renal functions closely. We will give one dose of gentamicin 160 mg stat. Case discussed with the staff on duty and agreed to do so. Case also discussed with pharmacy to increase the dose of cefepime 1 g q. 8 hourly. Followup chest x-rays and lab data. Thank you very much for allowing me to participate in the care of your patient. We will follow along with you and make changes as needed. Sohan Mittal MD [facility] # [id number]
[2017-08-13] MEDS: Albuterol-Ipratrop 3 mg / 0.5 (3 ml) UD INH SCH ×4 (02:11→19:08)
[2017-08-13] MEDS: (Novolin R) Insulin Human Regular 100 units/ml vial SC SCH ×4 (08:55→21:20)
[2017-08-13] MEDS: Lidocaine 5% Patch TD SCH (09:44)
[2017-08-13] MEDS: Insulin Detemir 100 units/ml Vial (Levemir) SC SCH (09:46)
[2017-08-13 11:15] LABS: BASO % 0.5 % (0.0-2.0); EOS # 0.2 K/uL (0.0-0.7); EOS % 2.2 % (0.0-4.0); HEMATOCRIT 30.8 % (34.0-47.0); LYMPH # 2.8 K/uL (1.0-4.3); LYMPH % 31.9 % (20.0-40.0); MEAN CELL VOLUME 91.3 fL (81.0-99.0); MEAN CORPUSCULAR HEMOGLOBIN 31.3 pg (27.0-31.0); MEAN CORPUSCULAR HGB CONC 34.2 g/dL (33.0-37.0); MEAN PLATELET VOLUME 8.8 fL (7.2-11.7); MONO % 11.3 % (0.0-10.0); RED CELL DISTRIBUTION WIDTH 15.3 % (11.5-14.5); WHITE BLOOD COUNT 8.9 K/uL (4.8-10.8)
--- NOTE | 2017-08-13 11:26 | US ---
Date of procedure: 08/13/2017 Procedure: Ultrasound guidance for vascular access HISTORY: Infection requiring long-term IV antibiotics TECHNIQUE: Following informed consent and procedure time-out, the patient placed supine on the interventional table and the right arm prepped and draped in the usual sterile fashion. Ultrasound showed a patent and compressible brachial vein. After the skin was anesthetized with lidocaine, the basilic vein was accessed with micro micropuncture technique using ultrasound guidance. An image documenting ultrasound guidance for vascular access was permanently saved. IMPRESSION: Ultrasound guidance for vascular access for placement of PICC.
--- NOTE | 2017-08-13 11:29 | RAD ---
PROCEDURE: Date of procedure: 08/13/2017 Procedure: 1. Placement of a right arm PICC with ultrasound and fluoroscopic guidance, CPT 15336 2. PICC tip confirmation with spot radiograph and is in the superior vena cava Medications: 4cc percent lidocaine Total Fluoro time: 19.2 seconds Radiation: 0.794 MGy EBL: 2 cc HISTORY: Infection requiring long-term IV antibiotics TECHNIQUE: Following informed consent and procedure time-out, the patient was placed supine on the interventional table and the right arm prepped and draped in the usual sterile fashion. Ultrasound showed a patent and compressible right brachial vein. After the skin was anesthetized with lidocaine, the brachial vein was accessed with micro micropuncture technique using ultrasound guidance. A guidewire was then advanced under fluoroscopic guidance into the superior vena cava. An image documenting ultrasound guidance for vascular access was permanently saved. The length of the single-lumen 4 Slovenian PICC was trimmed to 38 centimeters and advanced through a peel-away sheath. The PICC was position with tip of PICC confirm a spot radiograph the superior vena cava. The PICC was secured to the patient's skin. The PICC was flushed. A biopatch and sterile dressing was applied. IMPRESSION: Placement of a single-lumen 4 Slovenian PICC trimmed to 38 centimeters via right brachial vein. The tip of the PICC is confirmed with spot radiograph and is in the superior vena cava.
[2017-08-13 11:32] LABS: ALB/GLOB RATIO 0.8 (1.0-2.1); ALKALINE PHOSPHATASE 89 U/L (38-126); ALT/SGPT 31 U/L (9-52); AST/SGOT 23 U/L (14-36); BILIRUBIN,TOTAL 0.9 mg/dL (0.2-1.3); BLOOD UREA NITROGEN 15 mg/dL (7-17); CALCIUM 9.1 mg/dl (8.6-10.4); CARBON DIOXIDE 29 mmol/L (22-30); CHLORIDE 93 mmol/L (98-107); GFR AFRICAN-AMERICAN > 60; GLUCOSE,RANDOM 353 mg/dL (65-105); POTASSIUM 4.3 mmol/L (3.6-5.2); SODIUM 132 mmol/L (132-148); TOTAL PROTEIN 8.1 g/dL (6.3-8.3)
--- NOTE | 2017-08-13 16:04 | CP.PCM.PN ---
Subjective - Date & Time of Evaluation Date of Evaluation: 08/13/17 Time of Evaluation: 16:02 - Subjective Subjective: DISCUSSED PLAN FOR D/C ABX WITH DR. RIOS. REPEAT BLOOD CX DONE THIS MORNING AND REPEAT URINE CX STRAIGHT CATHED ALSO DONE TODAY. DR. RIOS REQUESTING 2 D ECHO TO R/O VEGETATION. DISCUSSED ALL PLANS WITH PT AND PT'S DAUGHTER AND SHE IS IN AGREEMENT. SHE IS ALSO OPEN TO HOME W IV INFUSION [facility] IF NEEDED FOR IV ABX. SW AND CM AWARE. NO FURTHER ORDERS. Objective - Vital Signs/Intake and Output Vital Signs (last 24 hours): Temp Pulse Resp BP Pulse Ox 98.1 F 88 18 140/82 97 08/13/17 08:00 08/13/17 14:31 08/13/17 08:00 08/13/17 08:00 08/13/17 08:00 Intake and Output: 08/13/17 08/13/17 06:59 18:59 Intake Total 270 Output Total 600 Balance -330 - Medications Medications: Current Medications Albuterol/Ipratropium (Duoneb 3 Mg/0.5 Mg (3 Ml) Ud) 3 ml INH RQ6 [facility] Last Admin: 08/13/17 14:14 Dose: 3 ml Anastrozole (Arimidex 1 Mg Tab) 1 mg PO DAILY [facility] Last Admin: 08/13/17 09:45 Dose: 1 mg Famotidine (Pepcid) 20 mg PO DAILY [facility] Last Admin: 08/13/17 09:45 Dose: 20 mg Gabapentin (Neurontin) 300 mg PO DAILY [facility] Last Admin: 08/13/17 09:45 Dose: 300 mg Heparin Sodium (Porcine) (Heparin) 5,000 units SC Q8 [facility] Last Admin: 08/13/17 13:06 Dose: 5,000 units Cefepime HCl 1 gm/ Dextrose 50 mls @ 100 mls/hr IVPB Q8H [facility] Last Admin: 08/13/17 14:48 Dose: 100 mls/hr Gentamicin Sulfate 80 mg/ (Sodium Chloride) 102 mls @ 100 mls/hr IVPB Q24H [facility] Stop: 08/15/17 23:02 Last Admin: 08/12/17 21:30 Dose: 100 mls/hr Insulin Detemir (Levemir) 30 unit SC DAILY [facility] Last Admin: 08/13/17 09:46 Dose: 30 unit Insulin Human Regular (Novolin R) 0 unit SC ACHS [facility] PRN Reason: Protocol Last Admin: 08/13/17 13:05 Dose: 6 unit Latanoprost (Xalatan Opht) 0 ml OU HS [facility] Last Admin: 08/12/17 21:30 Dose: 2.5 ml Lidocaine (Lidoderm) 1 ea TD DAILY [facility] Last Admin: 08/13/17 09:44 Dose: 1 ea Losartan Potassium (Cozaar) 25 mg PO DAILY [facility] Last Admin: 08/13/17 09:45 Dose: 25 mg Montelukast Sodium (Singulair) 10 mg PO HS [facility] Last Admin: 08/12/17 21:29 Dose: 10 mg Rosuvastatin Calcium (Crestor) 40 mg PO HS [facility] Last Admin: 08/12/17 21:29 Dose: 40 mg Tramadol HCl (Ultram) 25 mg PO TID PRN PRN Reason: Pain, moderate (4-7) Last Admin: 08/12/17 21:36 Dose: 25 mg - Labs Labs: 08/13/17 11:09 08/13/17 11:09 PT 10.6 SECONDS (9.7-12.2) 08/08/17 17:36 INR 1.0 08/08/17 17:36 APTT 24 SECONDS (21-34) 08/08/17 17:36
--- NOTE | 2017-08-13 21:10 | CP.PCM.PN ---
Subjective - Date & Time of Evaluation Date of Evaluation: 08/13/17 Time of Evaluation: 21:10 - Subjective Subjective: CHIEF COMPLAINTS TODAY : afebrile, S/P YARI PICC LINE 08/12/17. NO NEW COMPLAINTS. RESTING COMFORTABLY ROS. HEENT : N. Resp : No SOB, +VE wheezing, cough Cardio : No CP, PND orthopnea GI : No abd. 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 Musculoskel : N Ext. : Pedal pulses intact, no edema or calf pain Derm : N Psych : N. PE. Pt. is alert awake in no distress. V.S As noted in the chart Head ,ear nose,throat and eyes : Normal. Neck : Supple with normal carotids. Lungs: B/L EXPIRATORY WHEEZE LESS Heart : S1 & S2 normal . . No murmur. S4 + Abd : Soft non tender with normal bowel sounds. Neuro : Moves all ext. with no localized deficit. Ext : No edema with intact pulses. Neg. calf tenderness Derm : No rashes or decubitus ulcer. Radiology/Labs .' ABDOMINAL RENAL ULTRASOUND NOTED ; 2.1CM HYPOECHOIC LESION IN THE INTERPOLAR REGION LEFT KIDNEY ?CYST VS MASS BLOOD CULTURES 08/08/17 2:2 SETS POSITIVE FOR KLEBSIELLA PNEUMONIAE S-CEFEPIME , PIP/TAZO. URINE CULTURE 08/08/17; KLEBSIELLA PNEUMONIAE Asssessment : S/P SEPTIC SHOCK KLEBSIELLA PNEUMONIAE bacteremia Urosepsis r/o abscess/nephrolithiasis. Uncontrolled diabetes mellitus HYPONATREMIA-IMPROVING. Rheumatoid arthritis. s/p right craniotomy, benign tumor/abscess. s/p left breast mastectomy. Plan : Repeat blood cultures 2 out of 2 sets 15 minutes apart from the catheter-DONE TODAY Continue IV cefepime 1 g every 8 hourly. PATIENT GOT ONE DOSE OF GENTAMICIN 160 MG ON 08/11/17. CONTINUE iv GENTAMICIN 80 MG ONCE DAILY 4 DOSES-2ND DOSE TODAY F/U REPEAT BLOOD CULTURES AND URINE CULTURES. 2D ECHO R/O SBE. CASE DSCUSSED WITH PREPARATOR MS SARABIA. COSIDER CT ABDOMEN W/O CONTRAST R/O COMPLICATED CYST VS MASS LT KIDNEY Objective - Vital Signs/Intake and Output Vital Signs (last 24 hours): Temp Pulse Resp BP Pulse Ox 98.4 F 81 18 133/73 94 L 08/13/17 16:35 08/13/17 18:00 08/13/17 16:35 08/13/17 16:35 08/13/17 16:35 Intake and Output: 08/13/17 08/14/17 18:59 06:59 Intake Total 350 Balance 350 - Medications Medications: Current Medications Albuterol/Ipratropium (Duoneb 3 Mg/0.5 Mg (3 Ml) Ud) 3 ml INH RQ6 [facility] Last Admin: 08/13/17 19:08 Dose: 3 ml Anastrozole (Arimidex 1 Mg Tab) 1 mg PO DAILY [facility] Last Admin: 08/13/17 09:45 Dose: 1 mg Famotidine (Pepcid) 20 mg PO DAILY [facility] Last Admin: 08/13/17 09:45 Dose: 20 mg Gabapentin (Neurontin) 300 mg PO DAILY [facility] Last Admin: 08/13/17 09:45 Dose: 300 mg Heparin Sodium (Porcine) (Heparin) 5,000 units SC Q8 [facility] Last Admin: 08/13/17 13:06 Dose: 5,000 units Cefepime HCl 1 gm/ Dextrose 50 mls @ 100 mls/hr IVPB Q8H [facility] Last Admin: 08/13/17 14:48 Dose: 100 mls/hr Gentamicin Sulfate 80 mg/ (Sodium Chloride) 102 mls @ 100 mls/hr IVPB Q24H [facility] Stop: 08/15/17 23:02 Last Admin: 08/12/17 21:30 Dose: 100 mls/hr Insulin Detemir (Levemir) 30 unit SC DAILY [facility] Last Admin: 08/13/17 09:46 Dose: 30 unit Insulin Human Regular (Novolin R) 0 unit SC ACHS [facility] PRN Reason: Protocol Last Admin: 08/13/17 18:03 Dose: 6 unit Latanoprost (Xalatan Opht) 0 ml OU HS [facility] Last Admin: 08/12/17 21:30 Dose: 2.5 ml Lidocaine (Lidoderm) 1 ea TD DAILY [facility] Last Admin: 08/13/17 09:44 Dose: 1 ea Losartan Potassium (Cozaar) 25 mg PO DAILY [facility] Last Admin: 08/13/17 09:45 Dose: 25 mg Montelukast Sodium (Singulair) 10 mg PO HS [facility] Last Admin: 08/12/17 21:29 Dose: 10 mg Rosuvastatin Calcium (Crestor) 40 mg PO HS [facility] Last Admin: 12/20/17 21:29 Dose: 40 mg Tramadol HCl (Ultram) 25 mg PO TID PRN PRN Reason: Pain, moderate (4-7) Last Admin: 08/12/17 21:36 Dose: 25 mg - Labs Labs: 08/13/17 11:09 08/13/17 11:09 PT 10.6 SECONDS (9.7-12.2) 08/08/17 17:36 INR 1.0 08/08/17 17:36 APTT 24 SECONDS (21-34) 08/08/17 17:36
[2017-08-13] MEDS: Tramadol 25 mg PO PRN (21:20)
[2017-08-13] MEDS: Latanoprost 2.5 ml Opht Soln OU SCH (22:02)
[2017-08-14] MEDS: Albuterol-Ipratrop 3 mg / 0.5 (3 ml) UD INH SCH ×4 (01:48→19:28)
[2017-08-14] MEDS: (Novolin R) Insulin Human Regular 100 units/ml vial SC SCH ×4 (08:29→21:29)
[2017-08-14] MEDS: Lidocaine 5% Patch TD SCH (09:35)
[2017-08-14] MEDS: Insulin Detemir 100 units/ml Vial (Levemir) SC SCH (09:36)
[2017-08-14] MEDS ORDERED: Iohexol 240 (50 ml) PO ONE (13:45)
--- NOTE | 2017-08-14 16:45 | CP.PCM.PN ---
Subjective - Date & Time of Evaluation Date of Evaluation: 08/14/17 Time of Evaluation: 16:45 - Subjective Subjective: CHIEF COMPLAINTS TODAY : afebrile, S/P YARI PICC LINE 08/12/17. NO NEW COMPLAINTS FOR CT OF THE ABDOMEN AND PELVIS TODAY ROS. HEENT : N. Resp : No SOB, +VE wheezing, cough Cardio : No CP, PND orthopnea GI : No abd. Pain, n/v CAR WRECKER : No headache , focal deficit. Musculoskel : N Ext. : Pedal pulses intact, no edema or calf pain Derm : N Psych : N. PE. Pt. is alert awake in no distress. V.S As noted in the chart Head ,ear nose,throat and eyes : Normal. Neck : Supple with normal carotids. Lungs: B/L EXPIRATORY WHEEZE LESS Heart : S1 & S2 normal . . No murmur. S4 + Abd : Soft non tender with normal bowel sounds. Neuro : Moves all ext. with no localized deficit. Ext : No edema with intact pulses. Neg. calf tenderness Derm : No rashes or decubitus ulcer. Radiology/Labs .' Ct OF THE ABDOMEN/AND PELVIS WITH BY MOUTH CONTRAST-NOTED. Nonobstructive 7.5 mm calculus at lower pole left kidney. No hydro-nephrosis or [place] ureter.no cystic mass or solid mass lesion in the left kidney. ( see full report ) ABDOMINAL RENAL ULTRASOUND NOTED ; 2.1CM HYPOECHOIC LESION IN THE INTERPOLAR REGION LEFT KIDNEY ?CYST VS MASS repeat blood cultures 08/13/17 -ve growth for 24 hours .Repeat urine cultures 08/13/17 -ve growth. BLOOD CULTURES 08/08/17 2:2 SETS POSITIVE FOR KLEBSIELLA PNEUMONIAE S-CEFEPIME , PIP/TAZO. URINE CULTURE 08/08/17; KLEBSIELLA PNEUMONIAE Asssessment : S/P SEPTIC SHOCK KLEBSIELLA PNEUMONIAE bacteremia Urosepsis r/o abscess/nephrolithiasis. Uncontrolled diabetes mellitus HYPONATREMIA-IMPROVING. Rheumatoid arthritis. s/p right craniotomy, benign tumor/abscess. s/p left breast mastectomy. Plan : Continue IV cefepime 1 g every 8 hourly. PATIENT GOT ONE DOSE OF GENTAMICIN 160 MG ON 08/11/17. CONTINUE iv GENTAMICIN 80 MG ONCE DAILY 4 DOSES 3rd DOSE TODAY 2D ECHO R/O SBE. If echo reported negative for vegetations, continue IV cefepime 1 g every 12 hourly for total of 14 days -TO BE FOLLOWED BY MOUTH CIPRO 500 MG TWICE A DAY FOR 1 WEEK. CASE DISCUSSED WITH DR. FINNEGAN. Objective - Vital Signs/Intake and Output Vital Signs (last 24 hours): Temp Pulse Resp BP Pulse Ox 98.2 F 76 20 132/85 95 08/14/17 15:52 08/14/17 15:52 08/14/17 15:52 08/14/17 15:52 08/14/17 15:52 Intake and Output: 08/14/17 08/14/17 06:59 18:59 Intake Total 530 Output Total 400 Balance -400 530 - Medications Medications: Current Medications Albuterol/Ipratropium (Duoneb 3 Mg/0.5 Mg (3 Ml) Ud) 3 ml INH RQ6 [facility] Last Admin: 08/14/17 13:37 Dose: 3 ml Anastrozole (Arimidex 1 Mg Tab) 1 mg PO DAILY [facility] Last Admin: 08/14/17 13:26 Dose: 1 mg Famotidine (Pepcid) 20 mg PO DAILY [facility] Last Admin: 08/14/17 09:37 Dose: 20 mg Gabapentin (Neurontin) 300 mg PO DAILY [facility] Last Admin: 08/14/17 09:37 Dose: 300 mg Heparin Sodium (Porcine) (Heparin) 5,000 units SC Q8 [facility] Last Admin: 08/14/17 13:27 Dose: 5,000 units Cefepime HCl 1 gm/ Dextrose 50 mls @ 100 mls/hr IVPB Q8H [facility] Last Admin: 08/14/17 14:02 Dose: 100 mls/hr Gentamicin Sulfate 80 mg/ (Sodium Chloride) 102 mls @ 100 mls/hr IVPB Q24H [facility] Stop: 08/15/17 23:02 Last Admin: 08/13/17 21:21 Dose: 100 mls/hr Insulin Detemir (Levemir) 30 unit SC DAILY [facility] Last Admin: 08/14/17 09:36 Dose: 30 unit Insulin Human Regular (Novolin R) 0 unit SC ACHS [facility] PRN Reason: Protocol Last Admin: 08/14/17 13:26 Dose: 4 unit Latanoprost (Xalatan Opht) 0 ml OU HS [facility] Last Admin: 08/13/17 22:02 Dose: 2.5 ml Lidocaine (Lidoderm) 1 ea TD DAILY [facility] Last Admin: 12/22/17 09:35 Dose: 1 ea Losartan Potassium (Cozaar) 25 mg PO DAILY [facility] Last Admin: 08/14/17 09:37 Dose: 25 mg Montelukast Sodium (Singulair) 10 mg PO HS [facility] Last Admin: 08/13/17 21:21 Dose: 10 mg Rosuvastatin Calcium (Crestor) 40 mg PO HS [facility] Last Admin: 08/13/17 21:20 Dose: 40 mg Tramadol HCl (Ultram) 25 mg PO TID PRN PRN Reason: Pain, moderate (4-7) Last Admin: 08/13/17 21:20 Dose: 25 mg - Labs Labs: 08/13/17 11:09 08/13/17 11:09 PT 10.6 SECONDS (9.7-12.2) 08/08/17 17:36 INR 1.0 08/08/17 17:36 APTT 24 SECONDS (21-34) 08/08/17 17:36 Assessment and Plan (1) Septicemia Status: Acute (2) UTI (urinary tract infection) Status: Acute
--- NOTE | 2017-08-14 18:02 | CT ---
PROCEDURE: CT Abdomen and Pelvis with Oral contrast. HISTORY: complicated cysyt vs. mass in left kidney COMPARISON: Comparison is made with the previous study dated 03/08/2016 TECHNIQUE: Contiguous axial images of the abdomen and pelvis. Oral contrast was administered. No IV contrast given. Coronal and Sagittal reformats generated. Radiation dose: Total exam DLP = mGy-cm. This CT exam was performed using one or more of the following dose reduction techniques: Automated exposure control, adjustment of the mA and/or kV according to patient size, and/or use of iterative reconstruction technique. FINDINGS: LOWER THORAX: There is cardiomegaly seen. Again seen is small pericardial effusion. Again noted is large calcification at the mitral valve. LIVER: No significant interval change in the liver since the previous exam GALLBLADDER AND BILE DUCTS: Unremarkable. PANCREAS: Unremarkable. No mass. No ductal dilatation. SPLEEN: Unremarkable. No splenomegaly. ADRENALS: Again noted is heterogeneous slightly low-attenuation mass at the right adrenal gland measures 3 x 2.6 centimeter contains punctate calcification. The low left adrenal glands grossly unremarkable. KIDNEYS AND URETERS: Again noted is 7.5 millimeter nonobstructing calculus at the lower pole of the left kidney. No evidence of hydronephrosis or hydroureter. No evidence of cystic lesion at the left kidney. No significant interval change in the kidneys compared to the previous exam. BLADDER: Grossly unremarkable. REPRODUCTIVE: Unremarkable. APPENDIX: Unremarkable. BOWEL: Unremarkable. No obstruction. No gross mural thickening. PERITONEUM: Unremarkable. No fluid collection. No free air. LYMPH NODES: Unremarkable. No enlarged lymph nodes. VASCULATURE: Unremarkable. No aortic aneurysm. BONES: No fracture or destructive lesion. OTHER FINDINGS: There is fat containing paraumbilical hernia measures 2.5 centimeter in the transverse diameter. IMPRESSION: Re- demonstrated is 7.5 millimeter nonobstructing calculus at the lower pole of the left kidney. No evidence of hydronephrosis or hydroureter. No significant interval change in the kidneys noted since the previous exam. No overt cystic or solid mass lesion in the kidneys. Re- demonstrated is complex solid mass at the right adrenal gland.
--- NOTE | 2017-08-14 18:27 | CARD ---
APPROVED REPORT EXAM: Two-dimensional and M-mode echocardiogram with Doppler and color Doppler. Other Information Quality : GoodRhythm : INDICATION Infection:Rule out subacute bacterial endocarditis FEVER RISK FACTORS Diabetes 2D DIMENSIONS IVSd1.1 (0.7-1.1cm)LVDd5.4 (3.9-5.9cm) PWd1.3 (0.7-1.1cm)LVDs3.2 (2.5-4.0cm) FS (%) 40.4 %LVEF (%)70.6 (>50%) M-Mode DIMENSIONS Left Atrium (MM)3.66 (2.5-4.0cm)Aortic Root3.43 (2.2-3.7cm) Aortic Cusp Exc.2.19 (1.5-2.0cm) Mitral Valve MV E Yyrdhqlf138.0cm/sMV A Yhnzmwhd809.1cm/sE/A ratio0.8 TDI E/Lateral E'0.0E/Medial E'0.0 Tricuspid Valve TR Peak [id number]/sTR Peak Gr.[id number] LEFT VENTRICLE The left ventricle is normal size. There is normal left ventricular wall thickness. The left ventricular function is normal. The left ventricular ejection fraction is within the normal range. There is normal LV segmental wall motion. Transmitral Doppler flow pattern is Grade I-abnormal relaxation pattern. RIGHT VENTRICLE The right ventricle is normal size. There is normal right ventricular wall thickness. The right ventricular systolic function is normal. ATRIA The left atrium size is normal. The right atrium size is normal. AORTIC VALVE The aortic valve is mildly thickened. No aortic regurgitation is present. MITRAL VALVE The mitral valve is moderately thickened. Mitral regurgitation is mild. TRICUSPID VALVE There is mild tricuspid regurgitation. There is mild pulmonary hypertension. PULMONIC VALVE There is mild pulmonic valvular regurgitation. GREAT VESSELS The aortic root is normal in size. The IVC is dilated. <Conclusion> The left ventricle is normal size. There is normal left ventricular wall thickness. The left ventricular function is normal. The left ventricular ejection fraction is within the normal range. There is normal LV segmental wall motion. Transmitral Doppler flow pattern is Grade I-abnormal relaxation pattern. Mitral regurgitation is mild. There is mild tricuspid regurgitation. There is mild pulmonary hypertension. A mitral vegitation can not be ruled out
[2017-08-14] MEDS: Latanoprost 2.5 ml Opht Soln OU SCH (21:27)
[2017-08-15] MEDS: Albuterol-Ipratrop 3 mg / 0.5 (3 ml) UD INH SCH ×3 (01:37→13:34)
[2017-08-15] MEDS: Tramadol 25 mg PO PRN (09:17)
[2017-08-15] MEDS: Lidocaine 5% Patch TD SCH (09:18)
[2017-08-15] MEDS: Insulin Detemir 100 units/ml Vial (Levemir) SC SCH (09:19)
[2017-08-15] MEDS: (Novolin R) Insulin Human Regular 100 units/ml vial SC SCH ×2 (09:19→13:18)
[2017-08-15 09:33] LABS: BASO % 0.5 % (0.0-2.0); EOS # 0.2 K/uL (0.0-0.7); EOS % 2.8 % (0.0-4.0); HEMATOCRIT 30.6 % (34.0-47.0); LYMPH # 2.8 K/uL (1.0-4.3); LYMPH % 35.9 % (20.0-40.0); MEAN CELL VOLUME 90.6 fL (81.0-99.0); MEAN CORPUSCULAR HEMOGLOBIN 30.9 pg (27.0-31.0); MEAN CORPUSCULAR HGB CONC 34.1 g/dL (33.0-37.0); MEAN PLATELET VOLUME 9.1 fL (7.2-11.7); MONO # 0.7 K/uL (0.0-0.8); MONO % 9.1 % (0.0-10.0); RED CELL DISTRIBUTION WIDTH 15.2 % (11.5-14.5); WHITE BLOOD COUNT 7.9 K/uL (4.8-10.8)
[2017-08-15 10:11] LABS: GFR AFRICAN-AMERICAN > 60
--- NOTE | 2017-08-15 10:16 | CP.PCM.PN ---
Subjective - Date & Time of Evaluation Date of Evaluation: 08/15/17 Time of Evaluation: 10:15 - Subjective Subjective: PATIENT WAS ADMITTED FOR CHANGED IN MENTAL STATUS, FEVER UTI AND DEHYDRATION; AAOX 3 DENIES CHEST PAIN, NAUSEA SOB OR VOMITING NO SIGN OF DISTRESS NOTED Objective - Vital Signs/Intake and Output Vital Signs (last 24 hours): Temp Pulse Resp BP Pulse Ox 97.8 F 83 18 160/89 H 99 08/15/17 07:45 08/15/17 08:00 08/15/17 07:45 08/15/17 07:45 08/15/17 07:45 Intake and Output: 08/15/17 08/15/17 06:59 18:59 Intake Total 320 Output Total 900 Balance -580 - Medications Medications: Current Medications Albuterol/Ipratropium (Duoneb 3 Mg/0.5 Mg (3 Ml) Ud) 3 ml INH RQ6 [facility] Last Admin: 08/15/17 07:45 Dose: 3 ml Anastrozole (Arimidex 1 Mg Tab) 1 mg PO DAILY [facility] Last Admin: 08/15/17 09:20 Dose: 1 mg Famotidine (Pepcid) 20 mg PO DAILY [facility] Last Admin: 08/15/17 09:19 Dose: 20 mg Gabapentin (Neurontin) 300 mg PO DAILY [facility] Last Admin: 08/15/17 09:18 Dose: 300 mg Cefepime HCl 1 gm/ Dextrose 50 mls @ 100 mls/hr IVPB Q8H [facility] Last Admin: 08/15/17 06:09 Dose: 100 mls/hr Gentamicin Sulfate 80 mg/ (Sodium Chloride) 102 mls @ 100 mls/hr IVPB Q24H [facility] Stop: 08/15/17 23:02 Last Admin: 08/14/17 21:30 Dose: 100 mls/hr Insulin Detemir (Levemir) 30 unit SC DAILY [facility] Last Admin: 08/15/17 09:19 Dose: 30 unit Insulin Human Regular (Novolin R) 0 unit SC ACHS [facility] PRN Reason: Protocol Last Admin: 08/15/17 09:19 Dose: 3 unit Latanoprost (Xalatan Opht) 0 ml OU HS [facility] Last Admin: 08/14/17 21:27 Dose: 2.5 ml Lidocaine (Lidoderm) 1 ea TD DAILY [facility] Last Admin: 08/15/17 09:18 Dose: 1 ea Losartan Potassium (Cozaar) 25 mg PO DAILY [facility] Last Admin: 08/15/17 09:19 Dose: 25 mg Montelukast Sodium (Singulair) 10 mg PO HS NE[facility] Last Admin: 08/14/17 21:28 Dose: 10 mg Rosuvastatin Calcium (Crestor) 40 mg PO HS NELLY Last Admin: 08/14/17 21:28 Dose: 40 mg Tramadol HCl (Ultram) 25 mg PO TID PRN PRN Reason: Pain, moderate (4-7) Last Admin: 08/15/17 09:17 Dose: 25 mg - Labs Labs: 08/15/17 09:29 08/15/17 09:29 PT 10.6 SECONDS (9.7-12.2) 08/08/17 17:36 INR 1.0 08/08/17 17:36 APTT 24 SECONDS (21-34) 08/08/17 17:36 Assessment and Plan - Assessment and Plan (Free Text) Assessment: PATIENT IS SEEN AND EXAMINED AT THE BEDSIDE; LUNG CLEAR SAL; BLOOD CULT NEG; ECHO DONE BUT MITRAL VEGETATION CANNOT R/O; ABD CT WAS [place] FOR LEFT KIDNEY CYST VS MASS DISCUSS FINDING WITH DR FINNEGAN AND CLEAR THE PATIENT FOR DC HOME WITH HOME ABX INFUSION FOLLOW UP WITH DR FINNEGAN IN 1-2 WEEK AT HIS OFFICE ---CALL FOR APPOINTMENT CONTINUE TO TAKE YOUR HOME MEDICATION PER MED RECS NEW RX GIVEN: CEFEPINE 1G IV [id number] FOR 14 DAYS CIPRO 500 MG PO TWICE A DAY FOR 7 DAYS HOME INFUSION WILL BY ARRANGE FOR THE ANTIBIOTIC PER COMPANY ONCE INFUSION COMPLETE IN IN [address] FINNEGAN OFFICE TO HAVE PICC LINE REMOVE CALL DR FINNEGAN OR GO TO THE EMERGENCY ROOM IF SYMPTOMS RETURN OR WORSENING DISCUSS WITH PATIENT AND PATIENT'S FAMILY WHO AGREE WTIH THE DC PLANNING
[2017-08-15 10:35] LABS: ALB/GLOB RATIO 0.8 (1.0-2.1); ALKALINE PHOSPHATASE 84 U/L (38-126); ALT/SGPT 28 U/L (9-52); AST/SGOT 18 U/L (14-36); BILIRUBIN,TOTAL 0.9 mg/dL (0.2-1.3); BLOOD UREA NITROGEN 12 mg/dL (7-17); CARBON DIOXIDE 27 mmol/L (22-30); CHLORIDE 92 mmol/L (98-107); GLUCOSE,RANDOM 240 mg/dL (65-105); POTASSIUM 3.9 mmol/L (3.6-5.2); SODIUM 130 mmol/L (132-148); TOTAL PROTEIN 7.8 g/dL (6.3-8.3)
--- NOTE | 2017-08-15 14:54 | CP.PCM.PN ---
Subjective - Date & Time of Evaluation Date of Evaluation: 08/15/17 Time of Evaluation: 14:54 - Subjective Subjective: CHIEF COMPLAINTS TODAY : afebrile, S/P YARI PICC LINE 08/12/17. NO NEW COMPLAINTS ROS. HEENT : N. Resp : No SOB, +VE wheezing, cough Cardio : No CP, PND orthopnea GI : No abd. 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 Musculoskel : N Ext. : Pedal pulses intact, no edema or calf pain Derm : N Psych : N. PE. Pt. is alert awake in no distress. V.S As noted in the chart Head ,ear nose,throat and eyes : Normal. Neck : Supple with normal carotids. Lungs: B/L EXPIRATORY WHEEZE LESS Heart : S1 & S2 normal . . No murmur. S4 + Abd : Soft non tender with normal bowel sounds. Neuro : Moves all ext. with no localized deficit. Ext : No edema with intact pulses. Neg. calf tenderness Derm : No rashes or decubitus ulcer. Radiology/Labs .' Ct OF THE ABDOMEN/AND PELVIS WITH BY MOUTH CONTRAST-NOTED. Nonobstructive 7.5 mm calculus at lower pole left kidney. No hydro-nephrosis or [place] ureter.no cystic mass or solid mass lesion in the left kidney. ( see full report ) 2D ECHO REPORT NOTED ? MITRAL VALVE THICKENED, VEG S CANNOT BE R/O ABDOMINAL RENAL ULTRASOUND NOTED ; 2.1CM HYPOECHOIC LESION IN THE INTERPOLAR REGION LEFT KIDNEY ?CYST VS MASS repeat blood cultures 08/13/17 -ve growth for 24 hours .Repeat urine cultures 08/13/17 -ve growth. BLOOD CULTURES 08/08/17 2:2 SETS POSITIVE FOR KLEBSIELLA PNEUMONIAE S-CEFEPIME , PIP/TAZO. URINE CULTURE 08/08/17; KLEBSIELLA PNEUMONIAE Asssessment : S/P SEPTIC SHOCK KLEBSIELLA PNEUMONIAE bacteremia. R/O SBE Urosepsis r/o abscess/nephrolithiasis. Uncontrolled diabetes mellitus HYPONATREMIA-IMPROVING. Rheumatoid arthritis. s/p right craniotomy, benign tumor/abscess. s/p left breast mastectomy. Plan : CASE DISCUSSED WITH MOTORCYCLE MECHANIC MR COCHRAN TO GET SHELBY R/O VEG IF OK WITH PMD DR FINNEGAN Continue IV cefepime 1 g every 8 hourly. PATIENT GOT ONE DOSE OF GENTAMICIN 160 MG ON 08/11/17. CONTINUE iv GENTAMICIN 80 MG ONCE DAILY 4 DOSES 3rd DOSE TODAY If SHELBY reported negative for vegetations, continue IV cefepime 1 g every 12 hourly for total of 14 days -TO BE FOLLOWED BY MOUTH CIPRO 500 MG TWICE A DAY FOR 1 WEEK. Objective - Vital Signs/Intake and Output Vital Signs (last 24 hours): Temp Pulse Resp BP Pulse Ox 97.8 F 83 18 160/89 H 99 08/15/17 07:45 08/15/17 08:00 08/15/17 07:45 08/15/17 07:45 08/15/17 07:45 Intake and Output: 08/15/17 08/15/17 06:59 18:59 Intake Total 320 Output Total 900 Balance -580 - Medications Medications: Current Medications Albuterol/Ipratropium (Duoneb 3 Mg/0.5 Mg (3 Ml) Ud) 3 ml INH RQ6 [facility] Last Admin: 08/15/17 13:34 Dose: 3 ml Anastrozole (Arimidex 1 Mg Tab) 1 mg PO DAILY [facility] Last Admin: 08/15/17 09:20 Dose: 1 mg Famotidine (Pepcid) 20 mg PO DAILY [facility] Last Admin: 08/15/17 09:19 Dose: 20 mg Gabapentin (Neurontin) 300 mg PO DAILY [facility] Last Admin: 08/15/17 09:18 Dose: 300 mg Cefepime HCl 1 gm/ Dextrose 50 mls @ 100 mls/hr IVPB Q8H [facility] Last Admin: 08/15/17 06:09 Dose: 100 mls/hr Gentamicin Sulfate 80 mg/ (Sodium Chloride) 102 mls @ 100 mls/hr IVPB Q24H [facility] Stop: 08/15/17 23:02 Last Admin: 08/14/17 21:30 Dose: 100 mls/hr Insulin Detemir (Levemir) 30 unit SC DAILY [facility] Last Admin: 08/15/17 09:19 Dose: 30 unit Insulin Human Regular (Novolin R) 0 unit SC ACHS [facility] PRN Reason: Protocol Last Admin: 08/15/17 13:18 Dose: Not Given Latanoprost (Xalatan Opht) 0 ml OU HS NE[facility] Last Admin: 08/14/17 21:27 Dose: 2.5 ml Lidocaine (Lidoderm) 1 ea TD DAILY [facility] Last Admin: 08/15/17 09:18 Dose: 1 ea Losartan Potassium (Cozaar) 25 mg PO DAILY [facility] Last Admin: 08/15/17 09:19 Dose: 25 mg Montelukast Sodium (Singulair) 10 mg PO HS NELLY Last Admin: 08/14/17 21:28 Dose: 10 mg Rosuvastatin Calcium (Crestor) 40 mg PO HS NE[facility] Last Admin: 08/14/17 21:28 Dose: 40 mg Tramadol HCl (Ultram) 25 mg PO TID PRN PRN Reason: Pain, moderate (4-7) Last Admin: 08/15/17 09:17 Dose: 25 mg - Labs Labs: 08/15/17 09:29 08/15/17 09:29 PT 10.6 SECONDS (9.7-12.2) 08/08/17 17:36 INR 1.0 08/08/17 17:36 APTT 24 SECONDS (21-34) 08/08/17 17:36 Assessment and Plan (1) Septicemia Status: Acute (2) UTI (urinary tract infection) Status: Acute
--- NOTE | 2017-08-15 15:27 | CP.PCM.PN ---
Subjective - Date & Time of Evaluation Date of Evaluation: 08/15/17 Time of Evaluation: 15:26 - Subjective Subjective: Patient is clinically stable. Blood pressure stable. Recent blood culture is negative. Spoke to infectious disease. Echocardiogram mild regurgitation in the mitral, tricuspid valves. Clinically otherwise same No fever. We'll continue the IV antibiotic. We'll follow the patient Patient will be discharged home today Objective - Vital Signs/Intake and Output Vital Signs (last 24 hours): Temp Pulse Resp BP Pulse Ox 97.8 F 83 18 160/89 H 99 08/15/17 07:45 08/15/17 08:00 08/15/17 07:45 08/15/17 07:45 08/15/17 07:45 Intake and Output: 08/15/17 08/15/17 06:59 18:59 Intake Total 320 Output Total 900 Balance -580 - Medications Medications: Current Medications Albuterol/Ipratropium (Duoneb 3 Mg/0.5 Mg (3 Ml) Ud) 3 ml INH RQ6 [facility] Last Admin: 08/15/17 13:34 Dose: 3 ml Anastrozole (Arimidex 1 Mg Tab) 1 mg PO DAILY [facility] Last Admin: 08/15/17 09:20 Dose: 1 mg Famotidine (Pepcid) 20 mg PO DAILY [facility] Last Admin: 08/15/17 09:19 Dose: 20 mg Gabapentin (Neurontin) 300 mg PO DAILY [facility] Last Admin: 08/15/17 09:18 Dose: 300 mg Cefepime HCl 1 gm/ Dextrose 50 mls @ 100 mls/hr IVPB Q8H [facility] Last Admin: 08/15/17 06:09 Dose: 100 mls/hr Gentamicin Sulfate 80 mg/ (Sodium Chloride) 102 mls @ 100 mls/hr IVPB Q24H [facility] Stop: 08/15/17 23:02 Last Admin: 08/14/17 21:30 Dose: 100 mls/hr Insulin Detemir (Levemir) 30 unit SC DAILY [facility] Last Admin: 08/15/17 09:19 Dose: 30 unit Insulin Human Regular (Novolin R) 0 unit SC ACHS [facility] PRN Reason: Protocol Last Admin: 08/15/17 13:18 Dose: Not Given Latanoprost (Xalatan Opht) 0 ml OU HS [facility] Last Admin: 12/22/17 21:27 Dose: 2.5 ml Lidocaine (Lidoderm) 1 ea TD DAILY [facility] Last Admin: 08/15/17 09:18 Dose: 1 ea Losartan Potassium (Cozaar) 25 mg PO DAILY [facility] Last Admin: 08/15/17 09:19 Dose: 25 mg Montelukast Sodium (Singulair) 10 mg PO HS [facility] Last Admin: 08/14/17 21:28 Dose: 10 mg Rosuvastatin Calcium (Crestor) 40 mg PO HS [facility] Last Admin: 08/14/17 21:28 Dose: 40 mg Tramadol HCl (Ultram) 25 mg PO TID PRN PRN Reason: Pain, moderate (4-7) Last Admin: 08/15/17 09:17 Dose: 25 mg - Labs Labs: 08/15/17 09:29 08/15/17 09:29 PT 10.6 SECONDS (9.7-12.2) 08/08/17 17:36 INR 1.0 08/08/17 17:36 APTT 24 SECONDS (21-34) 08/08/17 17:36 Assessment and Plan (1) Mental status change Status: Acute (2) Septicemia Status: Acute (3) UTI (urinary tract infection) Status: Acute
[2017-08-15 15:59] VITALS: BP 161/83; PULSE 77; RESP 20; TEMP 98.9; O2SAT 94
--- NOTE | 2017-08-18 22:37 | CARD ---
APPROVED REPORT EKG Measurement Heart [id number] <Conclusion> Undetermined rhythm Left posterior fascicular block Abnormal ECG
== END 2017-08-15 16:25 | disposition home or self-care (01) | DRG 871 ==
LOC: C.ER 16:34 → C.9E 19:34 → C.6T 20:10 → C.9I 22:55 → C.5S 08-11 19:30
PROVIDERS: ADMIT Internal Medicine; ATTEND Internal Medicine
PROC: 3E0234Z Introduction of Serum, Toxoid and Vaccine into Muscle, Percutaneous Approach (ICD-10-PCS; 2017-08-09)
PROC: 5A09357 Assistance with Respiratory Ventilation, Less than 24 Consecutive Hours, Continuous Positive Airway Pressure (ICD-10-PCS; 2017-08-09)
PROC: 02HV33Z Insertion of Infusion Device into Superior Vena Cava, Percutaneous Approach (ICD-10-PCS; principal; 2017-08-13)
PROC: B518ZZA Fluoroscopy of Superior Vena Cava, Guidance (ICD-10-PCS; 2017-08-13)
PROC: 3E04329 Introduction of Other Anti-infective into Central Vein, Percutaneous Approach (ICD-10-PCS; 2017-08-13)
PROC: B54MZZA Ultrasonography of Right Upper Extremity Veins, Guidance (ICD-10-PCS; 2017-08-13)
DX: A41.59 Other Gram-negative sepsis (principal); R65.21 Severe sepsis with septic shock; E11.65 Type 2 diabetes mellitus with hyperglycemia; E11.42 Type 2 diabetes mellitus with diabetic polyneuropathy; Z68.43 Body mass index [BMI] 50.0-59.9, adult; N39.0 Urinary tract infection, site not specified; E87.1 Hypo-osmolality and hyponatremia; E86.0 Dehydration; J44.9 Chronic obstructive pulmonary disease, unspecified; E66.9 Obesity, unspecified; Z23 Encounter for immunization; Z79.4 Long term (current) use of insulin; Z79.84 Long term (current) use of oral hypoglycemic drugs; Z79.899 Other long term (current) drug therapy; M06.9 Rheumatoid arthritis, unspecified; I10 Essential (primary) hypertension; E78.00 Pure hypercholesterolemia, unspecified; R60.0 Localized edema; M19.90 Unspecified osteoarthritis, unspecified site; E87.8 Other disorders of electrolyte and fluid balance, not elsewhere classified; Z86.011 Personal history of benign neoplasm of the brain; H40.9 Unspecified glaucoma; K21.9 Gastro-esophageal reflux disease without esophagitis; Z90.12 Acquired absence of left breast and nipple; Z85.3 Personal history of malignant neoplasm of breast

== ENCOUNTER 2017-12-15 12:00 | Inpatient (IN) | payer MEDICARE, MEDICAID ==
[2017-12-15 12:00] VITALS: BMI 19.4
[2017-12-15] MEDS ORDERED: Iohexol 240 (50 ml) PO STA (12:44)
--- NOTE | 2017-12-15 12:44 | C.PDOC ---
History Of Present Illness 77 y/o female presents to the ER accompanied family with complaining of diffuse abdominal pain which has been present for the past 1 month. Patient describes the pain as cramping, associated with watery non-bloody diarrhea 2 times daily . She notes that she has decreased PO intake for the past 2 days. Pt sts, today noted black colored stool today and she saw some blood in it. Otherwise, pt denies fever, chills, headache, dizziness, CP, SOB, dyspnea, diaphoesis, palpitation, hematemesis, back pain, UTI sx. Patient denies having history of colonoscopy in past. Past medical history: Hypertension, diabetes, rheumatoid arthritis, hypercholesterolemia,history of brain surgery. Surgical history included by surgery. Allergies: No known drug allergy Time Seen by Provider: 12/15/17 12:18 Chief Complaint (Nursing): Abdominal Pain History Per: Patient History/Exam Limitations: no limitations Onset/Duration Of Symptoms: Days Current Symptoms Are (Timing): Still Present Severity: Moderate Location Of Pain/Discomfort: Diffuse Past Medical History Reviewed: Historical Data, Nursing Documentation, Vital Signs Vital Signs: Last Vital Signs Temp 97.8 F 12/15/17 16:40 Pulse 83 12/15/17 16:40 Resp 18 12/15/17 16:40 BP 132/76 12/15/17 16:40 Pulse Ox 98 12/15/17 18:13 - Medical History PMH: Arthritis, Asthma, COPD, Diabetes, HTN, Hypercholesterolemia, Malignancy, Peripheral Edema, Rheumatoid Arthritis Denies: Chronic Kidney Disease Other PMH: Obese Other Surgeries: Hx of surgeries - [facility] Procedures ASSISTANCE WITH RESPIRATORY VENTILATION, <24 HRS, CPAP (08/08/17) CONTRAST AORTOGRAM (11/23/14) CONTRAST ARTERIOGRAM-LEG (11/23/14) DRAINAGE OF VULVA, OPEN APPROACH (03/14/16) FLUOROSCOPY OF SUPERIOR VENA CAVA, GUIDANCE (08/08/17) INSERTION OF INFUSION DEV INTO SUP VENA CAVA, PERC APPROACH (08/08/17) INTRODUCE OTH ANTI-INFECT IN CENTRAL VEIN, PERC (08/08/17) INTRODUCTION OF SERUM/TOX/VACCINE INTO MUSCLE, PERC APPROACH (08/08/17) ULTRASONOGRAPHY OF RIGHT UPPER EXTREMITY VEINS, GUIDANCE (08/08/17) Family History: States: No Known Family Hx - Social History Hx Tobacco Use: No Hx Alcohol Use: No Hx Substance Use: No - Immunization History Hx Tetanus Toxoid Vaccination: (unk) Hx Influenza Vaccination: Yes (10/2015) Hx Pneumococcal Vaccination: Yes (10/2015) Review Of Systems Except As Marked, All Systems Reviewed And Found Negative. Constitutional: Negative for: Fever, Chills Gastrointestinal: Positive for: Abdominal Pain, Diarrhea, Melena Physical Exam - Physical Exam Appears: Well, Non-toxic, No Acute Distress Skin: Normal Color, Warm Head: Normacephalic Eye(s): bilateral: PERRL Nose: No Flaring, No Discharge Oral Mucosa: Moist, No Drooling Throat: No Drooling Neck: Trachea Midline, Supple Chest: Symmetrical Cardiovascular: Rhythm Regular Respiratory: No Decreased Breath Sounds, No Accessory Muscle Use, No Rales, No Rhonchi, No Wheezing Gastrointestinal/Abdominal: Soft, Tenderness (LLQ tenderness), No Guarding, No Rebound Rectal: Rectal Tone (normal), Blood Streaked Stool Back: No CVA Tenderness Extremity: Normal ROM, No Pedal Edema, No Deformity, No Swelling Neurological/Psych: Oriented x3, Normal Speech ED Course And Treatment - Laboratory Results Result Diagrams: 12/15/17 13:12 12/15/17 13:12 Lab Interpretation: Abnormal ECG: Interpreted By Me, Viewed By Me Interpretation Of ECG: SR@87/min, LAD, no acute T wave or ST-T chages. O2 Sat by Pulse Oximetry: 98 (RA) Pulse Ox Interpretation: Normal - CT Scan/US CT-Abd& Pelv. Other Rad Studies (CT/US): Read By Radiologist, Radiology Report Reviewed CT/US Interpretation: PROCEDURE: CT Abdomen and Pelvis with contrast. HISTORY : pain. COMPARISON: Abdomen pelvis CT without contrast 08/14/2017. TECHNIQUE : Technique. Contrast dose: Visipaque 320, 100 cc. Radiation dose: Total exam DLP = 1216.55 mGy-cm. This CT exam was performed using one or more of the following dose reduction techniques: Automated exposure control, adjustment of the mA and/or kV according to patient size, and/or use of iterative reconstruction technique. FINDINGS: LOWER THORAX: Cardiomegaly is reiterated as well as limited bilateral basilar dependent atelectasis. Dense mitral valvular calcification reiterated. Linear atelectasis or fibrosis is identified in the interval. LIVER: Unremarkable. No gross lesion or ductal dilatation. GALLBLADDER AND BILE DUCTS: Unremarkable. PANCREAS: Unremarkable. No gross lesion or ductal dilatation. SPLEEN: Unremarkable. ADRENALS: A well- circumscribed likely benign right adrenal mass is unchanged in size measuring 3.0 x 2.4 cm dating back to 02/07/2014 prior abdomen and pelvis CT though trace internal calcifications related once again as well as central lucency. The left adrenal gland is unremarkable once again. KIDNEYS AND URETERS: A 7 mm nonobstructing intrarenal calculus is again seen at the lower pole left kidney the tiny lucency also seen the lower pole too small to characterize. No right- sided intrarenal calculus or obstructive uropathy.Unremarkable. No hydronephrosis. No solid mass. VASCULATURE: therosclerotic aortic iliac system is appreciate without aneurysm formation. BOWEL: Bowel does not appear obstructed with the stomach mildly distended with retained oral contrast material and otherwise unremarkable appearing. Mild fecal loading is seen the colon with liquid fecal material identified in the proximal half of the colon. Sigmoid diverticular change are identified which appear nonacute. APPENDIX: Appendix not clearly identified. No definite CT evidence of appendicitis at this time. Left colonic diverticular changes are identified which appear nonacute.. PERITONEUM: A tiny umbilical hernia is identified containing only fat. No ascites throughout the examination or air. LYMPH NODES: Unremarkable. No enlarged lymph nodes. BLADDER: Unremarkable. REPRODUCTIVE: Unremarkable. BONES: No acute fracture. OTHER FINDINGS: None. IMPRESSION: A 7 mm nonobstructing intrarenal calculus is identified at the lower pole left kidney. No obstructive uropathy bilaterally. A stable 3.0 cm right adrenal nodule potentially representing a benign adrenal adenoma again evident. No interval change. The appendix not identified however no CT evidence of appendicitis is demonstrated at this time. A tiny umbilical hernia is identified containing only fat at this time. Progress Note: Labs and CT-Abd & Pelv ordered. Patient given IV Fluids and Zofran IV. On re-eval, pt remained stable. Afebrile, hemodynamicaly stable. Non-toxic. Abd: benign, (-) guaridng, (-) rebound. Case discussed with and admissionarranged with Dx: Abd, pain, GI bleed. results review and discussed with patient, agrees with plan. Disposition - Disposition Disposition: HOSPITALIZED Disposition Time: 15:02 Condition: STABLE - Clinical Impression Clinical Impression: GI bleed - PA / DOT ETCHER / Resident Statement MD/DO has reviewed & agrees with the documentation as recorded. - Scribe Statement The provider has reviewed the documentation as recorded by the Scribe Radha Rea Provider Attestation All medical record entries made by the Stacyibe were at my direction and personally dictated by me. I have reviewed the chart and agree that the record accurately reflects my personal performance of the history, physical exam, medical decision making, and the department course for this patient. I have also personally directed, reviewed, and agree with the discharge instructions and disposition.
[2017-12-15] MEDS ORDERED: Sodium Chloride 0.9% 1,000 ML IV ONE (12:46)
[2017-12-15 13:19] LABS: BASO % 0.2 % (0.0-2.0); EOS # 0.1 K/uL (0.0-0.7); EOS % 1.5 % (0.0-4.0); HEMOGLOBIN 11.1 g/dL (11.0-16.0); LYMPH # 3.9 K/uL (1.0-4.3); LYMPH % 42.5 % (20.0-40.0); MEAN CELL VOLUME 89.6 fL (81.0-99.0); MEAN CORPUSCULAR HEMOGLOBIN 29.5 pg (27.0-31.0); MEAN CORPUSCULAR HGB CONC 32.9 g/dL (33.0-37.0); MEAN PLATELET VOLUME 9.8 fL (7.2-11.7); MONO # 0.5 K/uL (0.0-0.8); MONO % 5.6 % (0.0-10.0); NEUT # 4.6 K/uL (1.8-7.0); NEUT % 50.2 % (50.0-75.0); RBC 3.75 Mil/uL (3.80-5.20); WHITE BLOOD COUNT 9.2 K/uL (4.8-10.8)
[2017-12-15 13:36] LABS: ALBUMIN 4.1 g/dL (3.5-5.0); ALT/SGPT < 6 U/L (9-52); AST/SGOT 30 U/L (14-36); BLOOD UREA NITROGEN 34 mg/dL (7-17); CALCIUM 9.7 mg/dl (8.6-10.4); GFR AFRICAN-AMERICAN 53; GFR NON-AFRICAN AMERICAN 43
[2017-12-15] MEDS ORDERED: Sodium Chloride 0.9% 1,000 ML ONE (13:45)
[2017-12-15] MEDS ORDERED: Iohexol 240 (50 ml) ONE (13:45)
[2017-12-15 13:47] LABS: INR 0.9; PROTHROMBIN TIME 10.3 SECONDS (9.7-12.2)
[2017-12-15 14:58] LABS: SQUAMOUS EPITHIAL 4 /hpf (0-5); URINE BACTERIA FEW (<OCC); URINE BILIRUBIN NEGATIVE (NEGATIVE); URINE BLOOD NEGATIVE (NEGATIVE); URINE CLARITY Clear (Clear); URINE COLOR Yellow (YELLOW); URINE GLUCOSE (UA) NORMAL (Normal); URINE HYALINE CAST 0-2 /lpf (0-2); URINE LEUKOCYTE ESTERASE NEG Leu/uL (Negative); URINE PROTEIN NEGATIVE (NEGATIVE); URINE UROBILINOGEN NORMAL mg/dL (0.2-1.0)
[2017-12-15] MEDS ORDERED: Iodixanol 320 MG/ML 100 ML BOTTLE IV ONE (15:22)
--- NOTE | 2017-12-15 17:04 | CT ---
PROCEDURE: CT Abdomen and Pelvis with contrast HISTORY: pain COMPARISON: Abdomen pelvis CT without contrast 08/14/2017. TECHNIQUE: Technique Contrast dose: Visipaque 320, 100 cc Radiation dose: Total exam DLP = 1216.55 mGy-cm. This CT exam was performed using one or more of the following dose reduction techniques: Automated exposure control, adjustment of the mA and/or kV according to patient size, and/or use of iterative reconstruction technique. FINDINGS: LOWER THORAX: Cardiomegaly is reiterated as well as limited bilateral basilar dependent atelectasis. Dense mitral valvular calcification reiterated. Linear atelectasis or fibrosis is identified in the interval. LIVER: Unremarkable. No gross lesion or ductal dilatation. GALLBLADDER AND BILE DUCTS: Unremarkable. PANCREAS: Unremarkable. No gross lesion or ductal dilatation. SPLEEN: Unremarkable. ADRENALS: A well-circumscribed likely benign right adrenal mass is unchanged in size measuring 3.0 x 2.4 cm dating back to 02/07/2014 prior abdomen and pelvis CT though trace internal calcifications related once again as well as central lucency. The left adrenal gland is unremarkable once again. KIDNEYS AND URETERS: A 7 mm nonobstructing intrarenal calculus is again seen at the lower pole left kidney the tiny lucency also seen the lower pole too small to characterize. No right-sided intrarenal calculus or obstructive uropathy.Unremarkable. No hydronephrosis. No solid mass. VASCULATURE: therosclerotic aortic iliac system is appreciate without aneurysm formation. BOWEL: Bowel does not appear obstructed with the stomach mildly distended with retained oral contrast material and otherwise unremarkable appearing. Mild fecal loading is seen the colon with liquid fecal material identified in the proximal half of the colon. Sigmoid diverticular change are identified which appear nonacute. APPENDIX: Appendix not clearly identified. No definite CT evidence of appendicitis at this time. Left colonic diverticular changes are identified which appear nonacute.. PERITONEUM: A tiny umbilical hernia is identified containing only fat. No ascites throughout the examination or air. LYMPH NODES: Unremarkable. No enlarged lymph nodes. BLADDER: Unremarkable. REPRODUCTIVE: Unremarkable. BONES: No acute fracture. OTHER FINDINGS: None. IMPRESSION: A 7 mm nonobstructing intrarenal calculus is identified at the lower pole left kidney. No obstructive uropathy bilaterally. A stable 3.0 cm right adrenal nodule potentially representing a benign adrenal adenoma again evident. No interval change. The appendix not identified however no CT evidence of appendicitis is demonstrated at this time. A tiny umbilical hernia is identified containing only fat at this time.
[2017-12-15] MEDS: (Novolin R) Insulin Human Regular 100 units/ml vial SC SCH (21:08)
--- NOTE | 2017-12-15 21:55 | CP.PCM.HP ---
History of Present Illness - History of Present Illness History of Present Illness: chief complaint: diarrhea and bleeding rectally History present illness: 77-year-old female with history of hypertension, diabetes, hypercholesteremia, rheumatoid arthritis, history of brain surgery came to the emergency room with multple episodes of diarrhea and rectal bleed started today. Pt recently admitted to with sepsis and placed on antibiotics and was doing well. But she started to have persistant diarrhea almost daily and multiple episodes no pain but nausea noted. no fever. no abd pain noted. but each time she eats she gets foul smelling diarrheal episodes. even today she had few episodes. as OP stool test was negative and she took flagyl but no improvement. she came to ed today with worsening symptoms and bleed in stool. past medical history: Hypertension, diabetes, rheumatoid arthritis, hypercholesterolemia,history of brain surgery. Surgical history included Brain surgery and craniotomy and abscess drainage Allergies: No known drug allergy Family history: Noncontributory. Review of system: patient is having increasing weakness, AMS, lethargic worsening in shaking poor eating no nausea no vomiting chills and fever. On examination: Temp Pulse Resp BP Pulse Ox 97.8 F 83 18 132/76 98 12/15/17 16:40 12/15/17 16:40 12/15/17 16:40 12/15/17 16:40 12/15/17 18:38 Vital signs reviewed in Chest good air entry bilaterally regular heart sound noted. Nontender abdomen. Extremities bilateral pedal edema noted. 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 labs normal CT abd non specific Assessment/condition: 77-year-old female with history of diabetes, hypertension, hypercholesteremia, RA h/o craniotomy admitted with diarrhea and gi bleed prerenal azotemia dehydration stool w/u GI and Id eval add probiotic liquid diet may need colonoscopy will f/u Present on Admission - Present on Admission Any Indicators Present on Admission: No History of DVT/PE: No History of Uncontrolled Diabetes: No Urinary Catheter: No Decubitus Ulcer Present: No Past Patient History - Past Medical History & Family History Past Medical History?: Yes - Past Social History Smoking Status: Never Smoked - CARDIAC Hx Cardiac Disorders: Yes Hx Hypercholesterolemia: Yes Hx Hypertension: Yes Hx Peripheral Edema: Yes - PULMONARY Hx Respiratory Disorders: Yes Hx Asthma: Yes Hx Chronic Obstructive Pulmonary Disease (COPD): Yes - NEUROLOGICAL Hx Neurological Disorder: Yes (NEUROPATHY) Other/Comment: HX CRANIOTOMY BENIGN BRAIN TUMOR; POLYNEUROPATHY - HEENT Hx HEENT Problems: Yes Hx Cataracts: Yes Hx Glaucoma: Yes - RENAL Hx Chronic Kidney Disease: No - ENDOCRINE/METABOLIC Hx Endocrine Disorders: Yes Hx Diabetes Mellitus Type 2: Yes - HEMATOLOGICAL/ONCOLOGICAL Hx Blood Disorders: Yes Hx Cancer: Yes (L BREAST MASTECTOMY) - INTEGUMENTARY Hx Dermatological Problems: No - MUSCULOSKELETAL/RHEUMATOLOGICAL Hx Musculoskeletal Disorders: Yes Hx Arthritis: Yes Hx Falls: Yes Hx Rheumatoid Arthritis: Yes - GASTROINTESTINAL Hx Gastrointestinal Disorders: Yes Hx Gastroesophageal Reflux: Yes Other/Comment: stomach surgery for cysts - GENITOURINARY/GYNECOLOGICAL Hx Genitourinary Disorders: No - PSYCHIATRIC Hx Psychophysiologic Disorder: No Hx Substance Use: No - SURGICAL HISTORY Hx Surgeries: Yes Hx Mastectomy: Yes (left breast) Other/Comment: CRANIOTOMY 1994 BENIGN BRAIN TUMOR. REMOVAL ABD CYST - ANESTHESIA Hx Anesthesia: Yes Hx Anesthesia Reactions: No Hx Malignant Hyperthermia: No Meds Allergies/Adverse Reactions: Allergies Allergy/AdvReac Type Severity Reaction Status Date / Time No Known Allergies Allergy Verified 12/15/17 12:13 Results - Vital Signs Recent Vital Signs: Last Vital Signs Temp 97.8 F 12/15/17 16:40 Pulse 83 12/15/17 16:40 Resp 18 12/15/17 16:40 BP 132/76 12/15/17 16:40 Pulse Ox 98 12/15/17 18:38 - Labs Result Diagrams: 12/15/17 13:12 12/15/17 13:12 Labs: Laboratory Results - last 24 hr 12/15/17 12/15/17 12/15/17 12:04 13:12 13:12 WBC 9.2 RBC 3.75 L Hgb 11.1 Hct 33.7 L MCV 89.6 MCH 29.5 MCHC 32.9 L RDW 15.0 H Plt Count 250 MPV 9.8 Neut % (Auto) 50.2 Lymph % (Auto) 42.5 H Phillips % (Auto) 5.6 Eos % (Auto) 1.5 Baso % (Auto) 0.2 Neut # (Auto) 4.6 Lymph # (Auto) 3.9 Phillips # (Auto) 0.5 Eos # (Auto) 0.1 Baso # (Auto) 0.0 PT INR APTT Sodium 136 Potassium 4.1 Chloride 98 Carbon Dioxide 20 L Anion Gap 22 H BUN 34 H Creatinine 1.2 Est GFR ( Amer) 53 Est GFR (Non-Af Amer) 43 POC Glucose (mg/dL) 166 H Random Glucose 156 H Calcium 9.7 Total Bilirubin 0.7 AST 30 ALT < 6 L D Alkaline Phosphatase 74 Total Creatine Kinase 45 Troponin I < 0.0120 Total Protein 8.2 Albumin 4.1 Globulin 4.1 H Albumin/Globulin Ratio 1.0 Urine Color Urine Clarity Urine pH Ur Specific Conception Urine Protein Urine Glucose (UA) Urine Ketones Urine Blood Urine Nitrate Urine Bilirubin Urine Urobilinogen Ur Leukocyte Esterase Urine WBC (Auto) Urine RBC (Auto) Ur Squamous Epith Cells Urine Bacteria Hyaline Casts Stool Occult Blood 12/15/17 12/15/17 12/15/17 13:35 14:48 15:10 WBC RBC Hgb Hct MCV MCH MCHC RDW Plt Count MPV Neut % (Auto) Lymph % (Auto) Phillips % (Auto) Eos % (Auto) Baso % (Auto) Neut # (Auto) Lymph # (Auto) Phillips # (Auto) Eos # (Auto) Baso # (Auto) PT 10.3 INR 0.9 APTT 31 Sodium Potassium Chloride Carbon Dioxide Anion Gap BUN Creatinine Est GFR ( Amer) Est GFR (Non-Af Amer) POC Glucose (mg/dL) Random Glucose Calcium Total Bilirubin AST ALT Alkaline Phosphatase Total Creatine Kinase Troponin I Total Protein Albumin Globulin Albumin/Globulin Ratio Urine Color Yellow Urine Clarity Clear Urine pH 5.0 Ur Specific Conception 1.011 Urine Protein Negative Urine Glucose (UA) Normal Urine Ketones Negative Urine Blood Negative Urine Nitrate Negative Urine Bilirubin Negative Urine Urobilinogen Normal Ur Leukocyte Esterase Neg Urine WBC (Auto) 1 Urine RBC (Auto) < 1 Ur Squamous Epith Cells 4 Urine Bacteria Few H Hyaline Casts 0-2 Stool Occult Blood Negative 12/15/17 12/15/17 12/15/17 18:10 18:11 18:45 WBC RBC Hgb Hct MCV MCH MCHC RDW Plt Count MPV Neut % (Auto) Lymph % (Auto) Phillips % (Auto) Eos % (Auto) Baso % (Auto) Neut # (Auto) Lymph # (Auto) Phillips # (Auto) Eos # (Auto) Baso # (Auto) PT INR APTT Sodium Potassium Chloride Carbon Dioxide Anion Gap BUN Creatinine Est GFR ( Amer) Est GFR (Non-Af Amer) POC Glucose (mg/dL) 68 66 86 Random Glucose Calcium Total Bilirubin AST ALT Alkaline Phosphatase Total Creatine Kinase Troponin I Total Protein Albumin Globulin Albumin/Globulin Ratio Urine Color Urine Clarity Urine pH Ur Specific Conception Urine Protein Urine Glucose (UA) Urine Ketones Urine Blood Urine Nitrate Urine Bilirubin Urine Urobilinogen Ur Leukocyte Esterase Urine WBC (Auto) Urine RBC (Auto) Ur Squamous Epith Cells Urine Bacteria Hyaline Casts Stool Occult Blood 12/15/17 20:47 WBC RBC Hgb Hct MCV MCH MCHC RDW Plt Count MPV Neut % (Auto) Lymph % (Auto) Phillips % (Auto) Eos % (Auto) Baso % (Auto) Neut # (Auto) Lymph # (Auto) Phillips # (Auto) Eos # (Auto) Baso # (Auto) PT INR APTT Sodium Potassium Chloride Carbon Dioxide Anion Gap BUN Creatinine Est GFR ( Amer) Est GFR (Non-Af Amer) POC Glucose (mg/dL) 109 Random Glucose Calcium Total Bilirubin AST ALT Alkaline Phosphatase Total Creatine Kinase Troponin I Total Protein Albumin Globulin Albumin/Globulin Ratio Urine Color Urine Clarity Urine pH Ur Specific Conception Urine Protein Urine Glucose (UA) Urine Ketones Urine Blood Urine Nitrate Urine Bilirubin Urine Urobilinogen Ur Leukocyte Esterase Urine WBC (Auto) Urine RBC (Auto) Ur Squamous Epith Cells Urine Bacteria Hyaline Casts Stool Occult Blood
[2017-12-16] MEDS: (Novolin R) Insulin Human Regular 100 units/ml vial SC SCH ×4 (07:40→21:22)
[2017-12-16] MEDS: Insulin Detemir 100 units/ml Vial (Levemir) SC SCH (09:24)
[2017-12-16] MEDS: Saccharomyces Boulardi 250 mg Cap PO SCH ×3 (09:25→17:47)
[2017-12-16] MEDS ORDERED: Cilostazol 100 mg Tab UD PO SCH (10:00)
--- NOTE | 2017-12-16 10:02 | CP.PCM.CON ---
History of Present Illness - History of Present Illness History of Present Illness: COVERING DR SALES 77 yo female known to him previously who has been experiencing multiple episodes of loose to watery stools in recent months and has had several admissions for the same. Outpatient work up with stool studies has been negative and she recently has been placed on po Flagyl. She had antibiotics recently for other infection per her PCP. Now with acute flair of lower abdominal pain, diarrhea and noted some blood in the stool and on the toilet tissue. Unaware of when colonoscopy may have been done. No recent travel and outpatient stool studies reported as negative by Dr Nick. Review of Systems - Cardiovascular Cardiovascular: absent: Chest Pain, Dyspnea - Respiratory Respiratory: Dyspnea on Exertion - Gastrointestinal Gastrointestinal: As Per HPI, Abdominal Pain, Bloating, Diarrhea, Hematochezia. absent: Heartburn, Hematemesis, Nausea, Vomiting Past Patient History - Past Medical History & Family History Past Medical History?: Yes - Past Social History Smoking Status: Never Smoked Alcohol: None Drugs: Denies - CARDIAC Hx Cardiac Disorders: Yes Hx Hypercholesterolemia: Yes Hx Hypertension: Yes Hx Peripheral Edema: Yes - PULMONARY Hx Respiratory Disorders: Yes Hx Asthma: Yes Hx Chronic Obstructive Pulmonary Disease (COPD): Yes - NEUROLOGICAL Hx Neurological Disorder: Yes (NEUROPATHY) Other/Comment: HX CRANIOTOMY BENIGN BRAIN TUMOR; POLYNEUROPATHY - HEENT Hx HEENT Problems: Yes Hx Cataracts: Yes Hx Glaucoma: Yes - RENAL Hx Chronic Kidney Disease: No - ENDOCRINE/METABOLIC Hx Endocrine Disorders: Yes Hx Diabetes Mellitus Type 2: Yes - HEMATOLOGICAL/ONCOLOGICAL Hx Blood Disorders: Yes Hx Cancer: Yes (L BREAST MASTECTOMY) Hx Cirrhosis: No Hx Hepatitis A: No Hx Hepatitis B: No Hx Hepatitis C: No Hx Human Immunodeficiency Virus (HIV): No - INTEGUMENTARY Hx Dermatological Problems: No - MUSCULOSKELETAL/RHEUMATOLOGICAL Hx Musculoskeletal Disorders: Yes Hx Arthritis: Yes Hx Falls: Yes Hx Rheumatoid Arthritis: Yes - GASTROINTESTINAL Hx Gastrointestinal Disorders: Yes Hx Clostridium Difficile: No Hx Colitis: No Hx Colostomy: No Hx Constipation: No Hx Crohn's Disease: No Hx Diarrhea: Yes Hx Diverticulitis: No Hx Esophageal Varices: No Hx Fatty Liver Disease: No Hx Gall Bladder Disease: No Hx Gastritis: Yes Hx Gastroesophageal Reflux: Yes Hx Hemorrhoids: No Hx Ileostomy: No Hx Irritable Bowel: No Hx Liver Failure: No Hx Nausea: No Hx Pancreatitis: No HX Swallowing Problems: No Hx Ulcer: No Hx Vomiting: No Other/Comment: stomach surgery for cysts - GENITOURINARY/GYNECOLOGICAL Hx Genitourinary Disorders: No - PSYCHIATRIC Hx Psychophysiologic Disorder: No Hx Substance Use: No - SURGICAL HISTORY Hx Surgeries: Yes Hx Mastectomy: Yes (left breast) Other/Comment: CRANIOTOMY 1994 BENIGN BRAIN TUMOR. REMOVAL ABD CYST - ANESTHESIA Hx Anesthesia: Yes Hx Anesthesia Reactions: No Hx Malignant Hyperthermia: No Meds Allergies/Adverse Reactions: Allergies Allergy/AdvReac Type Severity Reaction Status Date / Time No Known Allergies Allergy Verified 12/15/17 12:13 - Medications Medications: Current Medications Anastrozole (Arimidex 1 Mg Tab) 1 mg PO DAILY [facility] Last Admin: 12/16/17 09:28 Dose: 1 mg Cilostazol (Pletal) 100 mg PO DAILY [facility] Last Admin: 12/16/17 09:25 Dose: 100 mg Ezetimibe (Zetia) 10 mg PO DAILY [facility] Last Admin: 12/16/17 09:25 Dose: 10 mg Famotidine (Pepcid) 20 mg PO DAILY [facility] Last Admin: 12/16/17 09:25 Dose: 20 mg Gabapentin (Neurontin) 300 mg PO DAILY [facility] Last Admin: 12/16/17 09:25 Dose: 300 mg Heparin Sodium (Porcine) (Heparin) 5,000 units SC Q8 [facility] Last Admin: 12/16/17 06:08 Dose: 5,000 units Insulin Detemir (Levemir) 30 unit SC DAILY [facility] Last Admin: 12/16/17 09:24 Dose: 30 unit Insulin Human Regular (Novolin R) 0 unit SC ACHS [facility] PRN Reason: Protocol Last Admin: 12/16/17 07:40 Dose: Not Given Montelukast Sodium (Singulair) 10 mg PO HS [facility] Last Admin: 12/15/17 21:34 Dose: 10 mg Saccharomyces Boulardii (Florastor) 250 mg PO TID [facility] Last Admin: 12/16/17 09:25 Dose: 250 mg Physical Exam - Constitutional Appears: No Acute Distress Additional comments: Obese female in NAD - Head Exam Head Exam: ATRAUMATIC, NORMOCEPHALIC - Eye Exam Eye Exam: EOMI, PERRL - Respiratory Exam Respiratory Exam: NORMAL BREATHING PATTERN - Cardiovascular Exam Cardiovascular Exam: REGULAR RHYTHM, +S1 - GI/Abdominal Exam GI & Abdominal Exam: Normal Bowel Sounds, Soft. absent: Distended, Mass, Rebound, Tenderness - Rectal Exam Rectal Exam: Deferred - Extremities Exam Extremities exam: Negative for: calf tenderness, joint swelling, tenderness - Neurological Exam Neurological exam: Alert, Oriented x3 - Psychiatric Exam Psychiatric exam: Normal Affect, Normal Mood - Skin Skin Exam: Dry, Warm Results - Vital Signs Recent Vital Signs: Last Vital Signs Temp 98.3 F 12/16/17 08:15 Pulse 90 12/16/17 08:15 Resp 20 12/16/17 08:15 BP 145/83 12/16/17 08:15 Pulse Ox 94 L 12/16/17 08:15 - Labs Result Diagrams: 12/15/17 13:12 12/15/17 13:12 Labs: Laboratory Results - last 24 hr 12/15/17 12/15/17 12/15/17 12:04 13:12 13:12 WBC 9.2 RBC 3.75 L Hgb 11.1 Hct 33.7 L MCV 89.6 MCH 29.5 MCHC 32.9 L RDW 15.0 H Plt Count 250 MPV 9.8 Neut % (Auto) 50.2 Lymph % (Auto) 42.5 H [place] % (Auto) 5.6 Eos % (Auto) 1.5 Baso % (Auto) 0.2 Neut # (Auto) 4.6 Lymph # (Auto) 3.9 [place] # (Auto) 0.5 Eos # (Auto) 0.1 Baso # (Auto) 0.0 PT INR APTT Sodium 136 Potassium 4.1 Chloride 98 Carbon Dioxide 20 L Anion Gap 22 H BUN 34 H Creatinine 1.2 Est GFR ( Amer) 53 Est GFR (Non-Af Amer) 43 POC Glucose (mg/dL) 166 H Random Glucose 156 H Calcium 9.7 Total Bilirubin 0.7 AST 30 ALT < 6 L D Alkaline Phosphatase 74 Total Creatine Kinase 45 Troponin I < 0.0120 Total Protein 8.2 Albumin 4.1 Globulin 4.1 H Albumin/Globulin Ratio 1.0 Urine Color Urine Clarity Urine pH Ur Specific Juda Urine Protein Urine Glucose (UA) Urine Ketones Urine Blood Urine Nitrate Urine Bilirubin Urine Urobilinogen Ur Leukocyte Esterase Urine WBC (Auto) Urine RBC (Auto) Ur Squamous Epith Cells Urine Bacteria Hyaline Casts Stool Occult Blood 12/15/17 12/15/17 12/15/17 13:35 14:48 15:10 WBC RBC Hgb Hct MCV MCH MCHC RDW Plt Count MPV Neut % (Auto) Lymph % (Auto) [place] % (Auto) Eos % (Auto) Baso % (Auto) Neut # (Auto) Lymph # (Auto) [place] # (Auto) Eos # (Auto) Baso # (Auto) PT 10.3 INR 0.9 APTT 31 Sodium Potassium Chloride Carbon Dioxide Anion Gap BUN Creatinine Est GFR ( Amer) Est GFR (Non-Af Amer) POC Glucose (mg/dL) Random Glucose Calcium Total Bilirubin AST ALT Alkaline Phosphatase Total Creatine Kinase Troponin I Total Protein Albumin Globulin Albumin/Globulin Ratio Urine Color Yellow Urine Clarity Clear Urine pH 5.0 Ur Specific Juda 1.011 Urine Protein Negative Urine Glucose (UA) Normal Urine Ketones Negative Urine Blood Negative Urine Nitrate Negative Urine Bilirubin Negative Urine Urobilinogen Normal Ur Leukocyte Esterase Neg Urine WBC (Auto) 1 Urine RBC (Auto) < 1 Ur Squamous Epith Cells 4 Urine Bacteria Few H Hyaline Casts 0-2 Stool Occult Blood Negative 12/15/17 12/15/17 12/15/17 18:10 18:11 18:45 WBC RBC Hgb Hct MCV MCH MCHC RDW Plt Count MPV Neut % (Auto) Lymph % (Auto) [place] % (Auto) Eos % (Auto) Baso % (Auto) Neut # (Auto) Lymph # (Auto) [place] # (Auto) Eos # (Auto) Baso # (Auto) PT INR APTT Sodium Potassium Chloride Carbon Dioxide Anion Gap BUN Creatinine Est GFR ( Amer) Est GFR (Non-Af Amer) POC Glucose (mg/dL) 68 66 86 Random Glucose Calcium Total Bilirubin AST ALT Alkaline Phosphatase Total Creatine Kinase Troponin I Total Protein Albumin Globulin Albumin/Globulin Ratio Urine Color Urine Clarity Urine pH Ur Specific Juda Urine Protein Urine Glucose (UA) Urine Ketones Urine Blood Urine Nitrate Urine Bilirubin Urine Urobilinogen Ur Leukocyte Esterase Urine WBC (Auto) Urine RBC (Auto) Ur Squamous Epith Cells Urine Bacteria Hyaline Casts Stool Occult Blood 12/15/17 12/15/17 12/16/17 20:47 21:52 06:05 WBC RBC Hgb Hct MCV MCH MCHC RDW Plt Count MPV Neut % (Auto) Lymph % (Auto) [place] % (Auto) Eos % (Auto) Baso % (Auto) Neut # (Auto) Lymph # (Auto) [place] # (Auto) Eos # (Auto) Baso # (Auto) PT INR APTT 30 Sodium Potassium Chloride Carbon Dioxide Anion Gap BUN Creatinine Est GFR ( Amer) Est GFR (Non-Af Amer) POC Glucose (mg/dL) 109 Random Glucose Calcium Total Bilirubin AST ALT Alkaline Phosphatase Total Creatine Kinase Troponin I Total Protein Albumin Globulin Albumin/Globulin Ratio Urine Color Urine Clarity Urine pH Ur Specific Juda Urine Protein Urine Glucose (UA) Urine Ketones Urine Blood Urine Nitrate Urine Bilirubin Urine Urobilinogen Ur Leukocyte Esterase Urine WBC (Auto) Urine RBC (Auto) Ur Squamous Epith Cells Urine Bacteria Hyaline Casts Stool Occult Blood Negative 12/16/17 06:32 WBC RBC Hgb Hct MCV MCH MCHC RDW Plt Count MPV Neut % (Auto) Lymph % (Auto) [place] % (Auto) Eos % (Auto) Baso % (Auto) Neut # (Auto) Lymph # (Auto) [place] # (Auto) Eos # (Auto) Baso # (Auto) PT INR APTT Sodium Potassium Chloride Carbon Dioxide Anion Gap BUN Creatinine Est GFR ( Amer) Est GFR (Non-Af Amer) POC Glucose (mg/dL) 114 H Random Glucose Calcium Total Bilirubin AST ALT Alkaline Phosphatase Total Creatine Kinase Troponin I Total Protein Albumin Globulin Albumin/Globulin Ratio Urine Color Urine Clarity Urine pH Ur Specific Juda Urine Protein Urine Glucose (UA) Urine Ketones Urine Blood Urine Nitrate Urine Bilirubin Urine Urobilinogen Ur Leukocyte Esterase Urine WBC (Auto) Urine RBC (Auto) Ur Squamous Epith Cells Urine Bacteria Hyaline Casts Stool Occult Blood Assessment & Plan (1) Blood present in stool Assessment and Plan: Patient with blood mixed in stool and on tissue last two days. H/H appears stable. r/o hemorrhoidal, diverticular bleeding vs polyp, colitis or occult ca. Patient reports she has never had a colonoscopy. Would advise this to be performed prior to discharge once Pletal and other anti-coagulants have been held. Will plan colonoscopy on this admission or can be done as outpatient if necessary. Await stool studies. Status: Acute Priority: Medium (2) Diarrhea Assessment and Plan: Stool studies as ordered to be repeated fresh in hospital Colonoscopy planned when Pletal has been held. Status: Chronic Priority: High (3) Obesity Status: Chronic Priority: Low
[2017-12-16] MEDS: Lidocaine 5% Patch TD SCH (14:25)
[2017-12-16 14:39] LABS: FECAL LEUKOCYTES NEGATIVE (NEGATIVE)
[2017-12-16 16:32] LABS: C DIFF TOXIN A B NEGATIVE (NEGATIVE)
--- NOTE | 2017-12-16 21:06 | CP.PCM.CON ---
History of Present Illness - History of Present Illness History of Present Illness: INFECTIOUS DISEASE CONSULT; REASON FOR CONSULT DIARRHEA AND GI BLEED. HPI 77-year-old female with history of hypertension, diabetes, hypercholesteremia, rheumatoid arthritis, history of brain surgery came to the emergency room with multple episodes of diarrhea and rectal bleed started on day of admission.. Pt recently admitted to with sepsis and placed on antibiotics and was doing well. But she started to have persistant diarrhea almost daily and multiple episodes . Also complains of lower abdominal discomfort and nausea but no vomiting. PATIENT DENIES ANY FEVER OR CHILLS BUT STATES THAT HER STOOLS ARE FOUL SMELLING AND ALSO TODAY NOTICED BLOOD IN HIS STOOLS. pATIENT STATES SHE WAS GIVEN BY MOUTH fLAGYL OUTPATIENT BUT NO IMPROVEMENT. ShE CAME TO THE ER BECAUSE OF WORSENING SYMPTOMS AND BLOOD IN THE STOOLS. INFECTIOUS DISEASE CONSULTATION REQUESTED BY PMD FOR DIARRHEA AND GI. BLEED PATIENT DENIES ANY RECENT TRAVEL OR ANY EXPOSURE TO SICK CONTACTS. ALLERGY. NKA PMH: Arthritis, Asthma, COPD, Diabetes, HTN, Hypercholesterolemia, Malignancy, Peripheral Edema, Rheumatoid Arthritis Denies: Chronic Kidney Disease. HX OF KLEIBSIELLA PNEUMONIAE BACTEREMIA IN Other PMH: Obese Other Surgeries: Hx of surgeries RT CRANIOTOMY/DRAINAGE OF ABSCESS, LT MASTECTOMY CA.BREAST - [facility] Procedures ASSISTANCE WITH RESPIRATORY VENTILATION, <24 HRS, CPAP (08/08/17) CONTRAST AORTOGRAM (11/23/14) CONTRAST ARTERIOGRAM-LEG (11/23/14) DRAINAGE OF VULVA, OPEN APPROACH (03/14/16) FLUOROSCOPY OF SUPERIOR VENA CAVA, GUIDANCE (08/08/17) INSERTION OF INFUSION DEV INTO SUP VENA CAVA, PERC APPROACH (08/08/17) INTRODUCE OTH ANTI-INFECT IN CENTRAL VEIN, PERC (08/08/17) INTRODUCTION OF SERUM/TOX/VACCINE INTO MUSCLE, PERC APPROACH (08/08/17) ULTRASONOGRAPHY OF RIGHT UPPER EXTREMITY VEINS, GUIDANCE (08/08/17) Family History: States: No Known Family Hx - Social History Hx Tobacco Use: No Hx Alcohol Use: No Hx Substance Use: No - Immunization History Hx Tetanus Toxoid Vaccination: (unk) Hx Influenza Vaccination: Yes (10/2015) Hx Pneumococcal Vaccination: Yes (10/2015) MEDS; SEE MARS. Review of Systems - Constitutional Constitutional: absent: Chills, Fever - EENT Eyes: absent: Change in Vision, Photophobia Nose/Mouth/Throat: absent: Mouth Lesions - Breasts Breasts: As Per HPI (LEFT MASTECTOMY.) - Cardiovascular Cardiovascular: Pedal Edema (1+). absent: Chest Pain - Gastrointestinal Gastrointestinal: Abdominal Pain, Cramping, Diarrhea, Melena, Nausea. absent: Vomiting - Genitourinary Genitourinary: absent: Dysuria, Urinary Urgency - Menstruation Menstruation: Post Menopausal - Neurological Neurological: absent: Headaches - Hematologic/Lymphatic Hematologic: As Per HPI. absent: Easy Bleeding, Lymphadenopathy Past Patient History - Past Medical History & Family History Past Medical History?: Yes - Past Social History Smoking Status: Never Smoked Alcohol: None Drugs: Denies - CARDIAC Hx Cardiac Disorders: Yes Hx Hypercholesterolemia: Yes Hx Hypertension: Yes - PULMONARY Hx Chronic Obstructive Pulmonary Disease (COPD): Yes - NEUROLOGICAL Hx Neurological Disorder: Yes (NEUROPATHY) Other/Comment: HX CRANIOTOMY BENIGN BRAIN TUMOR; POLYNEUROPATHY - HEENT Hx HEENT Problems: Yes Hx Cataracts: Yes Hx Glaucoma: Yes - RENAL Hx Chronic Kidney Disease: No - ENDOCRINE/METABOLIC Hx Diabetes Mellitus Type 2: Yes - HEMATOLOGICAL/ONCOLOGICAL Hx Blood Disorders: Yes Hx Cancer: Yes (L BREAST MASTECTOMY) Hx Cirrhosis: No Hx Hepatitis A: No Hx Hepatitis B: No Hx Hepatitis C: No Hx Human Immunodeficiency Virus (HIV): No - INTEGUMENTARY Hx Dermatological Problems: No - MUSCULOSKELETAL/RHEUMATOLOGICAL Hx Arthritis: Yes Hx Rheumatoid Arthritis: Yes - GASTROINTESTINAL Hx Gastrointestinal Disorders: Yes Hx Clostridium Difficile: No Hx Colitis: No Hx Colostomy: No Hx Constipation: No Hx Crohn's Disease: No Hx Diarrhea: Yes Hx Diverticulitis: No Hx Esophageal Varices: No Hx Fatty Liver Disease: No Hx Gall Bladder Disease: No Hx Gastritis: Yes Hx Gastroesophageal Reflux: Yes Hx Hemorrhoids: No Hx Ileostomy: No Hx Irritable Bowel: No Hx Liver Failure: No Hx Nausea: No Hx Pancreatitis: No HX Swallowing Problems: No Hx Ulcer: No Hx Vomiting: No Other/Comment: stomach surgery for cysts - GENITOURINARY/GYNECOLOGICAL Hx Genitourinary Disorders: No - PSYCHIATRIC Hx Psychophysiologic Disorder: No Hx Substance Use: No - SURGICAL HISTORY Hx Surgeries: Yes Hx Mastectomy: Yes (left breast) Other/Comment: CRANIOTOMY 1994 BENIGN BRAIN TUMOR. REMOVAL ABD CYST - ANESTHESIA Hx Anesthesia: Yes Hx Anesthesia Reactions: No Hx Malignant Hyperthermia: No Meds Allergies/Adverse Reactions: Allergies Allergy/AdvReac Type Severity Reaction Status Date / Time No Known Allergies Allergy Verified 12/15/17 12:13 - Medications Medications: Current Medications Acetaminophen (Tylenol 325mg Tab) 650 mg PO Q6 PRN PRN Reason: Pain, Mild (1-3) Anastrozole (Arimidex 1 Mg Tab) 1 mg PO DAILY [facility] Last Admin: 12/16/17 09:28 Dose: 1 mg Ezetimibe (Zetia) 10 mg PO DAILY [facility] Last Admin: 12/16/17 09:25 Dose: 10 mg Famotidine (Pepcid) 20 mg PO DAILY [facility] Last Admin: 12/16/17 09:25 Dose: 20 mg Gabapentin (Neurontin) 300 mg PO DAILY [facility] Last Admin: 12/16/17 09:25 Dose: 300 mg Heparin Sodium (Porcine) (Heparin) 5,000 units SC Q8 [facility] Last Admin: 12/16/17 14:29 Dose: Not Given Insulin Detemir (Levemir) 30 unit SC DAILY [facility] Last Admin: 12/16/17 09:24 Dose: 30 unit Insulin Human Regular (Novolin R) 0 unit SC ACHS [facility] PRN Reason: Protocol Last Admin: 12/16/17 17:47 Dose: 2 unit Lidocaine (Lidoderm) 1 ea TD DAILY [facility] Last Admin: 12/16/17 14:25 Dose: 1 ea Montelukast Sodium (Singulair) 10 mg PO HS [facility] Last Admin: 12/15/17 21:34 Dose: 10 mg Saccharomyces Boulardii (Florastor) 250 mg PO TID [facility] Last Admin: 12/16/17 17:47 Dose: 250 mg Tramadol HCl (Ultram) 50 mg PO BID PRN PRN Reason: Pain, moderate (4-7) Last Admin: 12/16/17 14:24 Dose: 50 mg Physical Exam - Constitutional Appears: No Acute Distress - Head Exam Head Exam: NORMAL INSPECTION - Eye Exam Eye Exam: EOMI, PERRL - ENT Exam ENT Exam: Normal Oropharynx - Neck Exam Neck exam: Positive for: Normal Inspection - Respiratory Exam Respiratory Exam: Clear to Auscultation Bilateral - Cardiovascular Exam Cardiovascular Exam: REGULAR RHYTHM, +S1, +S2 - GI/Abdominal Exam GI & Abdominal Exam: Normal Bowel Sounds, Soft, Tenderness (LOWER QUANDRANTS) - Extremities Exam Extremities exam: Positive for: pedal edema, pedal pulses present. Negative for : calf tenderness - Neurological Exam Neurological exam: Alert, CN II-XII Intact, Oriented x3, Reflexes Normal - Psychiatric Exam Psychiatric exam: Normal Mood - Skin Skin Exam: Normal Color, Warm Results - Vital Signs Recent Vital Signs: Last Vital Signs Temp 98.4 F 12/16/17 15:05 Pulse 91 H 12/16/17 16:00 Resp 20 12/16/17 15:05 BP 144/81 12/16/17 15:05 Pulse Ox 96 12/16/17 15:05 - Labs Result Diagrams: 12/15/17 13:12 12/15/17 13:12 Labs: Laboratory Results - last 24 hr 12/15/17 12/15/17 12/15/17 18:50 20:47 21:52 APTT POC Glucose (mg/dL) 109 Stool Occult Blood Negative Stool Leukocytes, Qual Negative C. difficile Ag & Toxin Negative 12/16/17 12/16/17 12/16/17 06:05 06:32 11:26 APTT 30 POC Glucose (mg/dL) 114 H 237 H Stool Occult Blood Stool Leukocytes, Qual C. difficile Ag & Toxin 12/16/17 12/16/17 12/16/17 13:30 13:30 16:25 APTT POC Glucose (mg/dL) 216 H Stool Occult Blood Stool Leukocytes, Qual Negative C. difficile Ag & Toxin Negative - Imaging and Cardiology CT scan - abdomen/PELVISWITH BY MOUTH iv CONTRAST. Status: Report reviewed by me Assessment & Plan (1) Abdominal pain Assessment and Plan: W/U IN PROGRESS. Status: Acute (2) GI bleed Assessment and Plan: W/U IN PROGRESS. GI ON BOARD. Status: Acute (3) Diarrhea Assessment and Plan: DIARRHOEA W/U IN ORDER. AMEOBIASIS SEROLOGY. START iv fLAGYL 250 MG EVERY 8 HOURLY 12/16/17 ADD PO VANCOMYCIN 125 MG 4 TIMES A DAY12/16/17 ENTERIC PRECAUTIONS. Status: Chronic Priority: High (4) Obesity Status: Chronic Priority: Low (5) Blood present in stool Status: Acute Priority: Medium
--- NOTE | 2017-12-17 | CARD ---
APPROVED REPORT EKG Measurement Heart [id number] <Conclusion> Normal sinus rhythm Normal ECG
[2017-12-17] MEDS: metroNIDAZOLE IV 250mg/50 ml 250 MG/50 ML BAG IVPB SCH ×3 (05:19→21:07)
[2017-12-17] MEDS: (Novolin R) Insulin Human Regular 100 units/ml vial SC SCH ×4 (07:27→21:18)
--- NOTE | 2017-12-17 07:43 | CP.PCM.PN ---
Subjective - Date & Time of Evaluation Date of Evaluation: 12/16/17 Objective - Vital Signs/Intake and Output Vital Signs (last 24 hours): Temp Pulse Resp BP Pulse Ox 98 F 65 20 128/70 95 12/16/17 23:35 12/17/17 03:53 12/16/17 23:35 12/16/17 23:35 12/16/17 23:35 - Medications Medications: Current Medications Acetaminophen (Tylenol 325mg Tab) 650 mg PO Q6 PRN PRN Reason: Pain, Mild (1-3) Last Admin: 12/17/17 06:46 Dose: 650 mg Anastrozole (Arimidex 1 Mg Tab) 1 mg PO DAILY [facility] Last Admin: 12/16/17 09:28 Dose: 1 mg Ezetimibe (Zetia) 10 mg PO DAILY [facility] Last Admin: 12/16/17 09:25 Dose: 10 mg Famotidine (Pepcid) 20 mg PO DAILY [facility] Last Admin: 12/16/17 09:25 Dose: 20 mg Gabapentin (Neurontin) 300 mg PO DAILY [facility] Last Admin: 12/16/17 09:25 Dose: 300 mg Heparin Sodium (Porcine) (Heparin) 5,000 units SC Q8 [facility] Last Admin: 12/17/17 05:25 Dose: 5,000 units Metronidazole (Flagyl) 250 mg in 50 mls @ 100 mls/hr IVPB Q8 [facility] PRN Reason: Protocol Stop: 12/22/17 06:01 Last Admin: 12/17/17 05:19 Dose: 100 mls/hr Insulin Detemir (Levemir) 30 unit SC DAILY [facility] Last Admin: 12/16/17 09:24 Dose: 30 unit Insulin Human Regular (Novolin R) 0 unit SC ACHS [facility] PRN Reason: Protocol Last Admin: 12/17/17 07:27 Dose: Not Given Lidocaine (Lidoderm) 1 ea TD DAILY [facility] Last Admin: 12/16/17 14:25 Dose: 1 ea Montelukast Sodium (Singulair) 10 mg PO HS [facility] Last Admin: 12/16/17 21:17 Dose: 10 mg Saccharomyces Boulardii (Florastor) 250 mg PO TID [facility] Last Admin: 12/16/17 17:47 Dose: 250 mg Tramadol HCl (Ultram) 50 mg PO BID PRN PRN Reason: Pain, moderate (4-7) Last Admin: 12/16/17 14:24 Dose: 50 mg Vancomycin HCl (Vancocin (Oral Or Rectal Use)) 125 mg PO QID [facility] PRN Reason: Protocol - Labs Labs: 12/15/17 13:12 12/15/17 13:12 PT 10.3 SECONDS (9.7-12.2) 12/15/17 13:35 INR 0.9 12/15/17 13:35 APTT 30 SECONDS (21-34) 12/16/17 06:05
--- NOTE | 2017-12-17 07:43 | CP.PCM.PN ---
Subjective - Date & Time of Evaluation Date of Evaluation: 12/17/17 Objective - Vital Signs/Intake and Output Vital Signs (last 24 hours): Temp Pulse Resp BP Pulse Ox 98 F 65 20 128/70 95 12/16/17 23:35 12/17/17 03:53 12/16/17 23:35 12/16/17 23:35 12/16/17 23:35 - Medications Medications: Current Medications Acetaminophen (Tylenol 325mg Tab) 650 mg PO Q6 PRN PRN Reason: Pain, Mild (1-3) Last Admin: 12/17/17 06:46 Dose: 650 mg Anastrozole (Arimidex 1 Mg Tab) 1 mg PO DAILY [facility] Last Admin: 12/16/17 09:28 Dose: 1 mg Ezetimibe (Zetia) 10 mg PO DAILY [facility] Last Admin: 12/16/17 09:25 Dose: 10 mg Famotidine (Pepcid) 20 mg PO DAILY [facility] Last Admin: 12/16/17 09:25 Dose: 20 mg Gabapentin (Neurontin) 300 mg PO DAILY [facility] Last Admin: 12/16/17 09:25 Dose: 300 mg Heparin Sodium (Porcine) (Heparin) 5,000 units SC Q8 [facility] Last Admin: 12/17/17 05:25 Dose: 5,000 units Metronidazole (Flagyl) 250 mg in 50 mls @ 100 mls/hr IVPB Q8 [facility] PRN Reason: Protocol Stop: 12/22/17 06:01 Last Admin: 12/17/17 05:19 Dose: 100 mls/hr Insulin Detemir (Levemir) 30 unit SC DAILY [facility] Last Admin: 12/16/17 09:24 Dose: 30 unit Insulin Human Regular (Novolin R) 0 unit SC ACHS [facility] PRN Reason: Protocol Last Admin: 12/17/17 07:27 Dose: Not Given Lidocaine (Lidoderm) 1 ea TD DAILY [facility] Last Admin: 12/16/17 14:25 Dose: 1 ea Montelukast Sodium (Singulair) 10 mg PO HS [facility] Last Admin: 12/16/17 21:17 Dose: 10 mg Saccharomyces Boulardii (Florastor) 250 mg PO TID [facility] Last Admin: 12/16/17 17:47 Dose: 250 mg Tramadol HCl (Ultram) 50 mg PO BID PRN PRN Reason: Pain, moderate (4-7) Last Admin: 12/16/17 14:24 Dose: 50 mg Vancomycin HCl (Vancocin (Oral Or Rectal Use)) 125 mg PO QID [facility] PRN Reason: Protocol - Labs Labs: 12/15/17 13:12 12/15/17 13:12 PT 10.3 SECONDS (9.7-12.2) 12/15/17 13:35 INR 0.9 12/15/17 13:35 APTT 30 SECONDS (21-34) 12/16/17 06:05
[2017-12-17 08:38] LABS: MEAN PLATELET VOLUME 9.9 fL (7.2-11.7); RED CELL DISTRIBUTION WIDTH 14.7 % (11.5-14.5)
[2017-12-17 08:49] LABS: BASO % 0.2 % (0.0-2.0); EOS # 0.2 K/uL (0.0-0.7); EOS % 1.9 % (0.0-4.0); HEMOGLOBIN 11.7 g/dL (11.0-16.0); LYMPH # 6.7 K/uL (1.0-4.3); LYMPH % 53.5 % (20.0-40.0); MEAN CORPUSCULAR HEMOGLOBIN 29.8 pg (27.0-31.0); MEAN CORPUSCULAR HGB CONC 34.1 g/dL (33.0-37.0); MONO # 0.7 K/uL (0.0-0.8); MONO % 5.2 % (0.0-10.0); NEUT # 4.9 K/uL (1.8-7.0); NEUT % 39.2 % (50.0-75.0); NRBC % 0.1 % (0.0-2.0); RBC 3.93 Mil/uL (3.80-5.20); WHITE BLOOD COUNT 12.6 K/uL (4.8-10.8)
[2017-12-17 08:50] LABS: BLOOD UREA NITROGEN 14 mg/dL (7-17); CALCIUM 10.2 mg/dl (8.6-10.4); GFR AFRICAN-AMERICAN > 60; GFR NON-AFRICAN AMERICAN > 60; MEAN CELL VOLUME 87.2 fL (81.0-99.0)
[2017-12-17] MEDS: Saccharomyces Boulardi 250 mg Cap PO SCH ×3 (09:25→17:49)
[2017-12-17] MEDS: Lidocaine 5% Patch TD SCH (09:25)
[2017-12-17] MEDS: Vancomycin 125 MG/5 ML SOLN (ORAL/RECTAL) PO SCH ×4 (09:31→21:08)
[2017-12-17] MEDS: Insulin Detemir 100 units/ml Vial (Levemir) SC SCH (10:00)
--- NOTE | 2017-12-17 10:39 | CP.PCM.PN ---
Subjective - Date & Time of Evaluation Date of Evaluation: 12/17/17 Time of Evaluation: 10:36 - Subjective Subjective: Patient with two loose stools. Pletal held since yesterday. Stool studies pending H/H stable. Objective - Vital Signs/Intake and Output Vital Signs (last 24 hours): Temp Pulse Resp BP Pulse Ox 98.2 F 91 H 20 136/74 95 12/17/17 09:30 12/17/17 09:30 12/17/17 09:30 12/17/17 09:30 12/17/17 09:30 - Medications Medications: Current Medications Acetaminophen (Tylenol 325mg Tab) 650 mg PO Q6 PRN PRN Reason: Pain, Mild (1-3) Last Admin: 12/17/17 06:46 Dose: 650 mg Anastrozole (Arimidex 1 Mg Tab) 1 mg PO DAILY [facility] Last Admin: 12/17/17 09:30 Dose: 1 mg Ezetimibe (Zetia) 10 mg PO DAILY [facility] Last Admin: 12/16/17 09:25 Dose: 10 mg Famotidine (Pepcid) 20 mg PO DAILY [facility] Last Admin: 12/17/17 09:23 Dose: 20 mg Gabapentin (Neurontin) 300 mg PO DAILY [facility] Last Admin: 12/17/17 09:23 Dose: 300 mg Heparin Sodium (Porcine) (Heparin) 5,000 units SC Q8 [facility] Last Admin: 12/17/17 05:25 Dose: 5,000 units Metronidazole (Flagyl) 250 mg in 50 mls @ 100 mls/hr IVPB Q8 [facility] PRN Reason: Protocol Stop: 12/22/17 06:01 Last Admin: 12/17/17 05:19 Dose: 100 mls/hr Insulin Detemir (Levemir) 30 unit SC DAILY [facility] Last Admin: 12/16/17 09:24 Dose: 30 unit Insulin Human Regular (Novolin R) 0 unit SC ACHS [facility] PRN Reason: Protocol Last Admin: 12/17/17 07:27 Dose: Not Given Lidocaine (Lidoderm) 1 ea TD DAILY [facility] Last Admin: 12/17/17 09:25 Dose: 1 ea Montelukast Sodium (Singulair) 10 mg PO HS [facility] Last Admin: 12/16/17 21:17 Dose: 10 mg Saccharomyces Boulardii (Florastor) 250 mg PO TID [facility] Last Admin: 04/26/18 09:25 Dose: 250 mg Tramadol HCl (Ultram) 50 mg PO BID PRN PRN Reason: Pain, moderate (4-7) Last Admin: 12/16/17 14:24 Dose: 50 mg Vancomycin HCl (Vancocin (Oral Or Rectal Use)) 125 mg PO QID [facility] PRN Reason: Protocol Last Admin: 12/17/17 09:31 Dose: 125 mg - Labs Labs: 12/17/17 08:23 12/17/17 08:23 PT 10.3 SECONDS (9.7-12.2) 12/15/17 13:35 INR 0.9 12/15/17 13:35 APTT 30 SECONDS (21-34) 12/16/17 06:05 - Constitutional Appears: No Acute Distress - Head Exam Head Exam: ATRAUMATIC, NORMOCEPHALIC - Respiratory Exam Respiratory Exam: NORMAL BREATHING PATTERN - Cardiovascular Exam Cardiovascular Exam: REGULAR RHYTHM, +S1 - GI/Abdominal Exam GI & Abdominal Exam: Soft, Normal Bowel Sounds. absent: Distended, Tenderness, Mass, Rebound - Extremities Exam Extremities Exam: Normal Inspection Assessment and Plan (1) Blood present in stool Assessment & Plan: H/H stable and stool OB - x2 thus far. Witnesses blood in stool prior to admission. Colonoscopy planned for am to evaluate prior to likely weekend discharge. Would have preferred to hold Pletal for a full 5-7 days but patient is adamant about not returning for exam as outpatient due to mobility factors. Understands the bleeding risks and that if large polyp is found i am unlikely to remove it at this time. Status: Acute (2) Diarrhea Assessment & Plan: Stool studies pending. For colonoscopy tomorrow. Prep as ordered Hold heparin!! Status: Chronic (3) Obesity Status: Chronic
[2017-12-17] MEDS ORDERED: Bisacodyl 5mg EC Tab PO ONE (17:00)
[2017-12-17] MEDS ORDERED: Peg-Electrolyte Oral Soln 4L (Golytely) PO ONE (18:00)
--- NOTE | 2017-12-17 22:36 | CP.PCM.PN ---
Subjective - Date & Time of Evaluation Date of Evaluation: 12/17/17 Time of Evaluation: 22:36 - Subjective Subjective: CHIEF COMPLAINTS TODAY : afebrile, OOB 2 LOOSE STOOLS. MILD LOWER ABDOMINAL DISCOMFORT. ROS. HEENT : N. Resp : No SOB wheezing, cough Cardio : No CP, PND orthopnea GI : ABDOMINAL PAIN LOWER QUADRANTS. 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 Musculoskel : N Ext. : Pedal pulses intact, no edema or calf pain Derm : N Psych : N. PE. Pt. is alert awake in no distress. V.S As noted in the chart Head ,ear nose,throat and eyes : Normal. Neck : Supple with normal carotids. Lungs: Clear air entry. Heart : S1 & S2 normal . . No murmur. S4 + Abd : MILD TENDERNESS LOWER QUADRANT, with normal bowel sounds. Neuro : Moves all ext. with no localized deficit. Ext : No edema with intact pulses. Neg. calf tenderness Derm : No rashes or decubitus ulcer. Radiology/Labs REVIEWED. Objective - Vital Signs/Intake and Output Vital Signs (last 24 hours): Temp Pulse Resp BP Pulse Ox 98.0 F 73 20 143/79 96 12/17/17 15:35 12/17/17 15:35 12/17/17 15:35 12/17/17 15:35 12/17/17 15:35 Intake and Output: 12/17/17 12/18/17 18:59 06:59 Intake Total 500 Balance 500 - Medications Medications: Current Medications Acetaminophen (Tylenol 325mg Tab) 650 mg PO Q6 PRN PRN Reason: Pain, Mild (1-3) Last Admin: 12/17/17 06:46 Dose: 650 mg Anastrozole (Arimidex 1 Mg Tab) 1 mg PO DAILY [facility] Last Admin: 12/17/17 09:30 Dose: 1 mg Ezetimibe (Zetia) 10 mg PO DAILY [facility] Last Admin: 12/17/17 11:00 Dose: 10 mg Famotidine (Pepcid) 20 mg PO DAILY [facility] Last Admin: 12/17/17 09:23 Dose: 20 mg Gabapentin (Neurontin) 300 mg PO DAILY [facility] Last Admin: 12/17/17 09:23 Dose: 300 mg Heparin Sodium (Porcine) (Heparin) 5,000 units SC Q8 [facility] Last Admin: 12/17/17 13:43 Dose: Not Given Metronidazole (Flagyl) 250 mg in 50 mls @ 100 mls/hr IVPB Q8 [facility] PRN Reason: Protocol Stop: 12/22/17 06:01 Last Admin: 12/17/17 21:07 Dose: 100 mls/hr Insulin Detemir (Levemir) 30 unit SC DAILY [facility] Last Admin: 12/17/17 10:00 Dose: Not Given Insulin Human Regular (Novolin R) 0 unit SC ACHS [facility] PRN Reason: Protocol Last Admin: 12/17/17 21:18 Dose: Not Given Lidocaine (Lidoderm) 1 ea TD DAILY [facility] Last Admin: 12/17/17 09:25 Dose: 1 ea Montelukast Sodium (Singulair) 10 mg PO HS [facility] Last Admin: 12/17/17 21:08 Dose: 10 mg Polyethylene Glycol/Electrolytes (Golytely) 2,000 ml PO ONCE ONE Stop: 12/18/17 06:01 Saccharomyces Boulardii (Florastor) 250 mg PO TID [facility] Last Admin: 12/17/17 17:49 Dose: 250 mg Tramadol HCl (Ultram) 50 mg PO BID PRN PRN Reason: Pain, moderate (4-7) Last Admin: 12/17/17 13:18 Dose: 50 mg Vancomycin HCl (Vancocin (Oral Or Rectal Use)) 125 mg PO QID [facility] PRN Reason: Protocol Last Admin: 12/17/17 21:08 Dose: 125 mg - Labs Labs: 12/17/17 08:23 12/17/17 08:23 PT 10.3 SECONDS (9.7-12.2) 12/15/17 13:35 INR 0.9 12/15/17 13:35 APTT 30 SECONDS (21-34) 12/16/17 06:05 Assessment and Plan (1) Abdominal pain Status: Acute (2) GI bleed Status: Acute (3) Diarrhea Status: Chronic (4) Obesity Status: Chronic (5) Blood present in stool Status: Acute - Assessment and Plan (Free Text) Plan: DIARRHOEA W/U IN ORDER. AMEOBIASIS SEROLOGY ORDERED FOR TOMORROW CONTINUE iv fLAGYL 250 MG EVERY 8 HOURLY 12/16/17 ADD PO VANCOMYCIN 125 MG 4 TIMES A DAY12/16/17 ENTERIC PRECAUTIONS. PATIENT FOR COLONOSCOPY IN A.M./APPROPRIATE STUDIES FOR STOOLS.
[2017-12-18] MEDS: metroNIDAZOLE IV 250mg/50 ml 250 MG/50 ML BAG IVPB SCH ×3 (05:29→22:10)
[2017-12-18] MEDS ORDERED: Peg-Electrolyte Oral Soln 4L (Golytely) PO ONE (06:00)
[2017-12-18] MEDS: (Novolin R) Insulin Human Regular 100 units/ml vial SC SCH ×4 (08:00→21:18)
[2017-12-18] MEDS: Saccharomyces Boulardi 250 mg Cap PO SCH ×3 (10:12→17:56)
[2017-12-18] MEDS: Insulin Detemir 100 units/ml Vial (Levemir) SC SCH (10:12)
[2017-12-18] MEDS: Vancomycin 125 MG/5 ML SOLN (ORAL/RECTAL) PO SCH ×4 (10:13→22:11)
[2017-12-18] MEDS: Lidocaine 5% Patch TD SCH (10:16)
[2017-12-18] MEDS ORDERED: Propofol 10 mg/ml Inj (20 ML) ONE (12:11)
[2017-12-18] MEDS ORDERED: Lidocaine Hydrochloride 5 ML INJ ONE (12:12)
[2017-12-18] MEDS ORDERED: Lactated Ringer's 500 ML IV ONE ×2 (12:26)
--- NOTE | 2017-12-18 12:47 | CP.PCM.PN ---
Subjective - Date & Time of Evaluation Date of Evaluation: 12/18/17 Time of Evaluation: 12:45 - Subjective Subjective: Colonoscopy: 1 cm polyp removed near hepatic flexure without bleeding Diverticulosis with no bleeding Internal hemorrhoids Fecal aspirate sent for microbiology studies. Rec/ No ASA/NSAID/antiplatelet or Pletal for TEN days due to size of polypectomy base. Advance diet Outpatient followup with her regular GI doctor in two weeks if otherwise stable for discharge. Objective - Vital Signs/Intake and Output Vital Signs (last 24 hours): Temp Pulse Resp BP Pulse Ox 98.2 F 77 20 135/87 99 12/18/17 08:16 12/18/17 08:16 12/18/17 08:16 12/18/17 08:16 12/18/17 08:16 Intake and Output: 12/18/17 12/18/17 06:59 18:59 Intake Total 2250 Balance 2250 - Medications Medications: Current Medications Acetaminophen (Tylenol 325mg Tab) 650 mg PO Q6 PRN PRN Reason: Pain, Mild (1-3) Last Admin: 12/17/17 06:46 Dose: 650 mg Anastrozole (Arimidex 1 Mg Tab) 1 mg PO DAILY [facility] Last Admin: 12/18/17 10:12 Dose: Not Given Ezetimibe (Zetia) 10 mg PO DAILY [facility] Last Admin: 12/18/17 10:13 Dose: Not Given Famotidine (Pepcid) 20 mg PO DAILY [facility] Last Admin: 12/18/17 10:13 Dose: Not Given Gabapentin (Neurontin) 300 mg PO DAILY [facility] Last Admin: 12/18/17 10:12 Dose: Not Given Heparin Sodium (Porcine) (Heparin) 5,000 units SC Q8 [facility] Last Admin: 12/17/17 13:43 Dose: Not Given Metronidazole (Flagyl) 250 mg in 50 mls @ 100 mls/hr IVPB Q8 [facility] PRN Reason: Protocol Stop: 12/22/17 06:01 Last Admin: 12/18/17 05:29 Dose: 100 mls/hr Insulin Detemir (Levemir) 30 unit SC DAILY [facility] Last Admin: 12/18/17 10:12 Dose: Not Given Insulin Human Regular (Novolin R) 0 unit SC ACHS [facility] PRN Reason: Protocol Last Admin: 12/18/17 08:00 Dose: Not Given Lidocaine (Lidoderm) 1 ea TD DAILY [facility] Last Admin: 12/18/17 10:16 Dose: 1 ea Montelukast Sodium (Singulair) 10 mg PO HS [facility] Last Admin: 12/17/17 21:08 Dose: 10 mg Saccharomyces Boulardii (Florastor) 250 mg PO TID [facility] Last Admin: 12/18/17 10:12 Dose: Not Given Tramadol HCl (Ultram) 50 mg PO BID PRN PRN Reason: Pain, moderate (4-7) Last Admin: 12/17/17 13:18 Dose: 50 mg Vancomycin HCl (Vancocin (Oral Or Rectal Use)) 125 mg PO QID [facility] PRN Reason: Protocol Last Admin: 12/18/17 10:13 Dose: Not Given - Labs Labs: 12/17/17 08:23 12/17/17 08:23 PT 10.3 SECONDS (9.7-12.2) 12/15/17 13:35 INR 0.9 12/15/17 13:35 APTT 30 SECONDS (21-34) 12/16/17 06:05 Assessment and Plan (1) Blood present in stool Status: Acute (2) Diarrhea Status: Chronic (3) Obesity Status: Chronic
[2017-12-18 13:47] VITALS: RESP 20
--- NOTE | 2017-12-18 14:51 | CP.PCM.PN ---
Subjective - Date & Time of Evaluation Date of Evaluation: 12/18/17 Time of Evaluation: 14:51 - Subjective Subjective: CHIEF COMPLAINTS TODAY : afebrile, vss S/P COLONOSCOPY-findings noted. ROS. HEENT : N. Resp : No SOB wheezing, cough Cardio : No CP, PND orthopnea GI : ABDOMINAL PAIN LOWER QUADRANTS. 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 Musculoskel : N Ext. : Pedal pulses intact, no edema or calf pain Derm : N Psych : N. PE. Pt. is alert awake in no distress. V.S As noted in the chart Head ,ear nose,throat and eyes : Normal. Neck : Supple with normal carotids. Lungs: Clear air entry. Heart : S1 & S2 normal . . No murmur. S4 + Abd : MILD TENDERNESS LOWER QUADRANT, with normal bowel sounds. Neuro : Moves all ext. with no localized deficit. Ext : No edema with intact pulses. Neg. calf tenderness Derm : No rashes or decubitus ulcer. Radiology/Labs REVIEWED. Objective - Vital Signs/Intake and Output Vital Signs (last 24 hours): Temp Pulse Resp BP Pulse Ox 98.3 F 83 20 160/101 H 98 12/18/17 13:42 12/18/17 13:42 12/18/17 13:42 12/18/17 13:42 12/18/17 13:42 Intake and Output: 12/18/17 12/18/17 06:59 18:59 Intake Total 2250 280 Balance 2250 280 - Medications Medications: Current Medications Acetaminophen (Tylenol 325mg Tab) 650 mg PO Q6 PRN PRN Reason: Pain, Mild (1-3) Last Admin: 12/17/17 06:46 Dose: 650 mg Anastrozole (Arimidex 1 Mg Tab) [address] [facility] Last Admin: 12/18/17 10:12 Dose: Not Given Ezetimibe (Zetia) [address] [facility] Last Admin: 12/18/17 10:13 Dose: Not Given Famotidine (Pepcid) [address] [facility] Last Admin: 12/18/17 10:13 Dose: Not Given Gabapentin (Neurontin) [address] [facility] Last Admin: 12/18/17 10:12 Dose: Not Given Heparin Sodium (Porcine) (Heparin) 5,[address] [facility] Last Admin: 12/17/17 13:43 Dose: Not Given Metronidazole (Flagyl) 250 mg in 50 mls @ 100 mls/hr IVPB Q8 [facility] PRN Reason: Protocol Stop: 12/22/17 06:01 Last Admin: 12/18/17 14:34 Dose: Not Given Insulin Detemir (Levemir) [address] [facility] Last Admin: 12/18/17 10:12 Dose: Not Given Insulin Human Regular (Novolin R) 0 unit SC ACHS [facility] PRN Reason: Protocol Last Admin: 12/18/17 12:00 Dose: Not Given Lidocaine (Lidoderm) [address] [facility] Last Admin: 12/18/17 10:16 Dose: 1 ea Montelukast Sodium (Singulair) [address] [facility] Last Admin: 12/17/17 21:08 Dose: 10 mg Saccharomyces Boulardii (Florastor) [address] [facility] Last Admin: 12/18/17 14:35 Dose: Not Given Tramadol HCl (Ultram) 50 mg PO BID PRN PRN Reason: Pain, moderate (4-7) Last Admin: 12/18/17 14:40 Dose: 50 mg Vancomycin HCl (Vancocin (Oral Or Rectal Use)) [address] [facility] PRN Reason: Protocol Last Admin: 12/18/17 14:34 Dose: Not Given - Labs Labs: 12/17/17 08:23 12/17/17 08:23 PT 10.3 SECONDS (9.7-12.2) 12/15/17 13:35 INR 0.9 12/15/17 13:35 APTT 30 SECONDS (21-34) 12/16/17 06:05 Assessment and Plan (1) Abdominal pain Status: Acute (2) GI bleed Status: Acute (3) Diarrhea Status: Chronic (4) Obesity Status: Chronic (5) Blood present in stool Status: Acute (6) Colon polyp Assessment & Plan: S/P COLONOSCOPY AND 1CM POLYP REMOVED. F/U BX. Status: Acute - Assessment and Plan (Free Text) Plan: DIARRHOEA W/U IN ORDER. s/p colonoscopy 12/18/17- POLYP REMOVED. AMEOBIASIS SEROLOGY ORDERED -P CONTINUE iv fLAGYL 250 MG EVERY 8 HOURLY 12/16/17 ADD PO VANCOMYCIN 125 MG 4 TIMES A DAY12/16/17 ENTERIC PRECAUTIONS. DISCUSSED WITH STAFF AND DAUGHTER.
[2017-12-18 20:01] LABS: SOURCE STOOL
[2017-12-19] MEDS: metroNIDAZOLE IV 250mg/50 ml 250 MG/50 ML BAG IVPB SCH (05:50)
[2017-12-19] MEDS: (Novolin R) Insulin Human Regular 100 units/ml vial SC SCH (08:10)
[2017-12-19 08:30] VITALS: BP 161/80; PULSE 71; TEMP 97.6; O2SAT 96
[2017-12-19] MEDS: Insulin Detemir 100 units/ml Vial (Levemir) SC SCH (09:25)
[2017-12-19] MEDS: Saccharomyces Boulardi 250 mg Cap PO SCH (09:26)
[2017-12-19] MEDS: Vancomycin 125 MG/5 ML SOLN (ORAL/RECTAL) PO SCH (09:30)
[2017-12-19] MEDS: Lidocaine 5% Patch TD SCH (09:30)
--- NOTE | 2017-12-19 11:34 | CP.PCM.PN ---
Subjective - Date & Time of Evaluation Date of Evaluation: 12/19/17 Time of Evaluation: 11:33 - Subjective Subjective: PT CLEARED FOR D.C HOME TODAY BY GI AND DR. FINNEGAN. PER DR. GRANADOS, PT IS TO STOP TAKING METFORMIN, JANUVIA, AND LACTULOSE. CONTINUE LEVEMIR USUAL. TO SEE PT IN THE OFFICE NEXT WEEK AND GI IN 2-3 WEEKS. PT INSTRUCTED TO NOT TAKE ASPIRIN OR NSAIDS FOR PAIN. REFILL RX GIVEN FOR LEVEMIR AND ULTRACET. PT AND DAUGHTER VERBALIZE UNDERSTANDING OF ALL D/C INFORMATION AND MEDICATIONS. NO FURTHER ORDERS. -FOLLOW UP WITH DR. FINNEGAN IN THE OFFICE IN 1 WEEK. -FOLLOW UP WITH DR. SALES OR DR. MENDOZA IN THE OFFICE IN 2-3 WEEKS. -STOP TAKING THE METFORMIN, JANUVIA AND LACTULOSE AT HOME PER DR. FINNEGAN. -YOUR LEVEMIR AND TRAMADOL HAVE BEEN REFILLED. -FOR ANY OTHER QUESTIONS, CONTACT DR. FINNEGAN. Objective - Vital Signs/Intake and Output Vital Signs (last 24 hours): Temp Pulse Resp BP Pulse Ox 97.6 F 71 20 161/80 H 96 12/19/17 08:28 12/19/17 08:28 12/19/17 08:28 12/19/17 08:28 12/19/17 08:28 Intake and Output: 12/19/17 12/19/17 06:59 18:59 Intake Total 300 Balance 300 - Medications Medications: Current Medications Acetaminophen (Tylenol 325mg Tab) 650 mg PO Q6 PRN PRN Reason: Pain, Mild (1-3) Last Admin: 12/18/17 18:32 Dose: 650 mg Anastrozole (Arimidex 1 Mg Tab) 1 mg PO DAILY [facility] Last Admin: 12/19/17 09:27 Dose: 1 mg Ezetimibe (Zetia) 10 mg PO DAILY [facility] Last Admin: 12/19/17 09:26 Dose: 10 mg Famotidine (Pepcid) 20 mg PO DAILY [facility] Last Admin: 12/19/17 09:31 Dose: 20 mg Gabapentin (Neurontin) 300 mg PO DAILY [facility] Last Admin: 12/19/17 09:26 Dose: 300 mg Heparin Sodium (Porcine) (Heparin) 5,000 units SC Q8 [facility] Last Admin: 12/19/17 05:51 Dose: 5,000 units Metronidazole (Flagyl) 250 mg in 50 mls @ 100 mls/hr IVPB Q8 [facility] PRN Reason: Protocol Stop: 12/22/17 06:01 Last Admin: 12/19/17 05:50 Dose: 100 mls/hr Insulin Detemir (Levemir) 30 unit SC DAILY [facility] Last Admin: 12/19/17 09:25 Dose: 30 unit Insulin Human Regular (Novolin R) 0 unit SC ACHS [facility] PRN Reason: Protocol Last Admin: 12/19/17 08:10 Dose: 2 unit Lidocaine (Lidoderm) 1 ea TD DAILY [facility] Last Admin: 12/19/17 09:30 Dose: 1 ea Montelukast Sodium (Singulair) 10 mg PO HS [facility] Last Admin: 12/18/17 22:11 Dose: 10 mg Saccharomyces Boulardii (Florastor) 250 mg PO TID [facility] Last Admin: 12/19/17 09:26 Dose: 250 mg Tramadol HCl (Ultram) 50 mg PO BID PRN PRN Reason: Pain, moderate (4-7) Last Admin: 12/19/17 09:28 Dose: 50 mg Vancomycin HCl (Vancocin (Oral Or Rectal Use)) 125 mg PO QID [facility] PRN Reason: Protocol Last Admin: 12/19/17 09:30 Dose: 125 mg - Labs Labs: 12/17/17 08:23 12/17/17 08:23 PT 10.3 SECONDS (9.7-12.2) 12/15/17 13:35 INR 0.9 12/15/17 13:35 APTT 30 SECONDS (21-34) 12/16/17 06:05
== END 2017-12-19 11:30 | disposition home health service (06) | DRG 379 ==
LOC: C.ER 12:00 → C.9E 15:01 → C.6T 15:01
PROVIDERS: ADMIT Internal Medicine; ATTEND Internal Medicine
PROC: 0DBL8ZZ Excision of Transverse Colon, Via Natural or Artificial Opening Endoscopic (ICD-10-PCS; principal; 2017-12-18 12:21)
DX: K92.1 Melena (principal); E66.9 Obesity, unspecified; E78.00 Pure hypercholesterolemia, unspecified; E11.9 Type 2 diabetes mellitus without complications; Z68.38 Body mass index [BMI] 38.0-38.9, adult; K63.5 Polyp of colon; E86.0 Dehydration; H40.9 Unspecified glaucoma; I10 Essential (primary) hypertension; J44.9 Chronic obstructive pulmonary disease, unspecified; K64.1 Second degree hemorrhoids; K57.30 Diverticulosis of large intestine without perforation or abscess without bleeding; K21.9 Gastro-esophageal reflux disease without esophagitis; M06.9 Rheumatoid arthritis, unspecified; Z86.011 Personal history of benign neoplasm of the brain

== ENCOUNTER 2018-03-30 12:50 | Emergency (ER) | payer MEDICARE, MEDICAID ==
[2018-03-30 12:51] VITALS: BMI 19.4
[2018-03-30 14:00] LABS: BASO # 0.1 K/uL (0.0-0.2); BASO % 0.8 % (0.0-2.0); EOS # 0.1 K/uL (0.0-0.7); EOS % 1.1 % (0.0-4.0); HEMOGLOBIN 10.7 g/dL (11.0-16.0); LYMPH # 3.7 K/uL (1.0-4.3); LYMPH % 36.3 % (20.0-40.0); MEAN CELL VOLUME 87.5 fL (81.0-99.0); MEAN CORPUSCULAR HEMOGLOBIN 29.1 pg (27.0-31.0); MEAN CORPUSCULAR HGB CONC 33.3 g/dL (33.0-37.0); MONO # 0.7 K/uL (0.0-0.8); MONO % 7.1 % (0.0-10.0); NEUT # 5.5 K/uL (1.8-7.0); NEUT % 54.7 % (50.0-75.0); RBC 3.68 Mil/uL (3.80-5.20); RED CELL DISTRIBUTION WIDTH 15.4 % (11.5-14.5); WHITE BLOOD COUNT 10.1 K/uL (4.8-10.8)
[2018-03-30 14:12] LABS: ALB/GLOB RATIO 1.1 (1.0-2.1); CALCIUM 9.4 mg/dl (8.6-10.4); GFR AFRICAN-AMERICAN > 60; GFR NON-AFRICAN AMERICAN 54; LIPASE 121 U/L (23-300)
[2018-03-30 14:23] LABS: B-TYPE NATRIURETIC PEPTIDE 218 pg/mL (0-900)
[2018-03-30] MEDS ORDERED: Sodium Chloride 0.9% 500 ML IV ONE ×2 (14:25→14:55)
[2018-03-30] MEDS ORDERED: Iohexol 240 (50 ml) PO STA (14:25)
[2018-03-30 14:31] LABS: BLOOD UREA NITROGEN 24 mg/dL (7-17)
[2018-03-30 14:32] LABS: ALT/SGPT 13 U/L (9-52); AST/SGOT 34 U/L (14-36)
[2018-03-30] MEDS ORDERED: Iohexol 240 (50 ml) ONE (14:55)
[2018-03-30 15:09] LABS: SQUAMOUS EPITHIAL 3 /hpf (0-5); URINE BACTERIA RARE (<OCC); URINE BILIRUBIN NEGATIVE (NEGATIVE); URINE BLOOD NEGATIVE (NEGATIVE); URINE CLARITY Clear (Clear); URINE COLOR Yellow (YELLOW); URINE GLUCOSE (UA) 1+ mg/dL (Normal); URINE LEUKOCYTE ESTERASE NEG Leu/uL (Negative); URINE PROTEIN NEGATIVE (NEGATIVE); URINE UROBILINOGEN NORMAL mg/dL (0.2-1.0)
[2018-03-30] MEDS ORDERED: Iodixanol 320 MG/ML 100 ML BOTTLE IV ONE (16:13)
--- NOTE | 2018-03-30 17:28 | CT ---
Date of service: 03/30/2018 PROCEDURE: CT Abdomen and Pelvis with contrast HISTORY: Left sided abd pain, distension COMPARISON: Abdomen pelvis CT with contrast 12/15/[address] 02/07/2014. TECHNIQUE: Following oral and intravenous contrast administration, a CT examination of the abdomen and pelvis performed from the domes of the diaphragms to the symphysis pubis with reformatted datasets provided not only axial but also sagittal and coronal series. Contrast dose: Visipaque 320, 100 Radiation dose: Total exam DLP = 1193.79 mGy-cm. This CT exam was performed using one or more of the following dose reduction techniques: Automated exposure control, adjustment of the mA and/or kV according to patient size, and/or use of iterative reconstruction technique. FINDINGS: LOWER THORAX: Cardiomegaly reiterated. No pleural or pericardial effusion. Tiny hiatal hernia noted. LIVER: Mild hepatic steatosis reiterated diffusely. No hepatic mass or intrahepatic biliary dilatation evident. GALLBLADDER AND BILE DUCTS: Unremarkable. PANCREAS: Unremarkable. No gross lesion or ductal dilatation. SPLEEN: Unremarkable. ADRENALS: Stable 2.8 x 2.4 cm right adrenal benign adenoma identified with the left adrenal gland normal once again. KIDNEYS AND URETERS: Stable 7 mm intrarenal calculus lower pole left kidney. No obstructive uropathy bilaterally. There is a stable small lucency too small to characterize at the lower pole left kidney posteriorly once again. VASCULATURE: Unremarkable. No aortic aneurysm. BOWEL: Sigmoid diverticular changes are stable with no acute findings. No obstruction. No gross mural thickening. APPENDIX: Normal appendix. PERITONEUM: Unremarkable. No free fluid. No free air. LYMPH NODES: Unremarkable. No enlarged lymph nodes. BLADDER: Unremarkable. REPRODUCTIVE: Unremarkable. BONES: No acute fracture. OTHER FINDINGS: None. IMPRESSION: 1. No definite acute abdominal or pelvic findings. 2. Stable benign right adrenal adenoma. 3. Nonobstructing intrarenal calculus lower pole left kidney unchanged as well as small lucency too small to characterize at the left lower pole renal parenchyma. 4. Normal appendix.
--- NOTE | 2018-03-30 17:33 | C.PDOC ---
Time Seen by Provider: 03/30/18 13:26 Chief Complaint (Nursing): Abdominal Pain History Per: Patient, Family Onset/Duration Of Symptoms: Days (about 1 week), Waxing/Waning Current Symptoms Are (Timing): Still Present Severity: Moderate Location Of Pain/Discomfort: LUQ Quality Of Discomfort: Unable To Describe, "Pain", Gas Exacerbating Factors: Food Last Bowel Movement: Today Additional History Per: Prior Records Past Medical History Reviewed: Historical Data, Nursing Documentation, Vital Signs Vital Signs: Last Vital Signs Temp 98.1 F 03/30/18 13:10 Pulse 83 03/30/18 13:10 Resp 20 03/30/18 13:10 BP 137/78 03/30/18 13:10 Pulse Ox 96 03/30/18 13:10 - Medical History PMH: Arthritis, Asthma, COPD, Diabetes, Gastritis, HTN, Hypercholesterolemia, Malignancy, Peripheral Edema, Rheumatoid Arthritis - [facility] Procedures ASSISTANCE WITH RESPIRATORY VENTILATION, <24 HRS, CPAP (08/08/17) CONTRAST AORTOGRAM (11/23/14) CONTRAST ARTERIOGRAM-LEG (11/23/14) DRAINAGE OF VULVA, OPEN APPROACH (03/14/16) EXCISION OF TRANSVERSE COLON, ENDO (12/15/17) FLUOROSCOPY OF SUPERIOR VENA CAVA, GUIDANCE (08/08/17) INSERTION OF INFUSION DEV INTO SUP VENA CAVA, PERC APPROACH (08/08/17) INTRODUCE OTH ANTI-INFECT IN CENTRAL VEIN, PERC (08/08/17) INTRODUCTION OF SERUM/TOX/VACCINE INTO MUSCLE, PERC APPROACH (08/08/17) ULTRASONOGRAPHY OF RIGHT UPPER EXTREMITY VEINS, GUIDANCE (08/08/17) Family History: States: Unknown Family Hx - Social History Hx Tobacco Use: No Hx Alcohol Use: No Hx Substance Use: No - Immunization History Hx Tetanus Toxoid Vaccination: (unk) Hx Influenza Vaccination: Yes (10/2015) Hx Pneumococcal Vaccination: Yes (10/2015) Review Of Systems Except As Marked, All Systems Reviewed And Found Negative. Constitutional: Negative for: Fever, Weakness Cardiovascular: Negative for: Chest Pain Respiratory: Negative for: Shortness of Breath, Hemoptysis Gastrointestinal: Positive for: Abdominal Pain. Negative for: Vomiting, Diarrhea, Constipation, Melena, Hematochezia, Hematemesis Genitourinary: Negative for: Dysuria Musculoskeletal: Negative for: Neck Pain, Back Pain Skin: Negative for: Rash Neurological: Negative for: Weakness, Numbness Physical Exam - Physical Exam Appears: Non-toxic, No Acute Distress Skin: Normal Color, Warm, Dry, No Rash Head: Atraumatic, Normacephalic Eye(s): bilateral: PERRL, EOMI Neck: Normal ROM, Supple Cardiovascular: Rhythm Regular Respiratory: Normal Breath Sounds, No Accessory Muscle Use Gastrointestinal/Abdominal: Soft, Tenderness (LUQ), No Guarding, No Rebound Back: No CVA Tenderness Extremity: Normal ROM, Pedal Edema, No Calf Tenderness Neurological/Psych: Oriented x3, Normal Motor, Normal Sensation ED Course And Treatment - Laboratory Results Result Diagrams: 03/30/18 13:51 03/30/18 13:51 Lab Interpretation: No Acute Changes O2 Sat by Pulse Oximetry: 96 Pulse Ox Interpretation: Normal - CT Scan/US CT abd/pelv Other Rad Studies (CT/US): Read By Radiologist, Radiology Report Reviewed CT/US Interpretation: IMPRESSION: 1. No definite acute abdominal or pelvic findings. 2. Stable benign right adrenal adenoma. 3. Nonobstructing intrarenal calculus lower pole left kidney unchanged as well as small lucency too small to characterize at the left lower pole renal parenchyma. 4. Normal appendix. Progress - Interventions Interventions:: Observation - Medications Administered Intravenous: Antiemetic, Other (PPI) - Data Reviewed Data Reviewed: Lab, Diagnostic imaging, Old records - Patient Status Patient status: Mostly improved - Continuity of Care Discussed patient case with:: Patient, Family-HIPPA compliant, ED Nurse, PMD - Patient Plan Patient Plan: Discharge, F/U with PCP Disposition Discussed With : Marianna Nick Doctor Will See Patient In The: Office Counseled Patient/Family Regarding: Studies Performed, Diagnosis, Need For Followup, Rx Given - Disposition Referrals: Marianna Nick MD [Staff Provider] - Disposition: HOME/ ROUTINE Disposition Time: 17:33 Condition: IMPROVED Additional Instructions: Eat a bland diet. Follow up with your doctor within 1-2 weeks for further evaluation and treatment. Return to the ER if you develop fever, vomiting, bloody or black stools, worsening of symptoms or if you have any other concerns. Prescriptions: Pantoprazole Sodium [Protonix] 40 mg PO DAILY #14 ect Instructions: Gastritis (DC) - Clinical Impression Clinical Impression: LUQ abdominal pain
[2018-03-30 17:53] VITALS: RESP 18; TEMP 98.6; O2SAT 95
[2018-03-30 17:58] VITALS: BP 150/83; PULSE 83
== END 2018-03-30 17:59 | disposition home or self-care (01) ==
LOC: C.ER 12:50
DX: R10.12 Left upper quadrant pain (principal); I10 Essential (primary) hypertension; E11.9 Type 2 diabetes mellitus without complications; E78.00 Pure hypercholesterolemia, unspecified
CPT/HCPCS: 74177; 80053; 81001; 83690; 83880; 84484; 85025; 87086; 96374; 99284; C9113; J7040; Q9966; Q9967

== ENCOUNTER 2018-08-04 15:40 | Emergency (ER) | payer MEDICARE, MEDICAID ==
[2018-08-04 15:41] VITALS: BMI 19.4
[2018-08-04 15:54] VITALS: TEMP 98
[2018-08-04] MEDS ORDERED: Iohexol 240 (50 ml) PO STA (15:57)
[2018-08-04] MEDS ORDERED: Sodium Chloride 0.9% 1,000 ML IV ONE (15:57)
[2018-08-04] MEDS ORDERED: Sodium Chloride 0.9% 1,000 ML ONE (16:22)
[2018-08-04] MEDS ORDERED: Iohexol 240 (50 ml) ONE (16:22)
--- NOTE | 2018-08-04 16:49 | C.PDOC ---
History Of Present Illness 77 year old female, whose past medical history includes hypertension, diabetes, breast cancer, and rheumatoid arthritis, presents to the ED for evaluation of left-sided abdominal pain which began one week ago. Family thought the patient's symptoms might be indicative of gas or constipation. Patient has been evaluated for similar symptoms in the past, and had undergone CT scan which have resulted negative. Patient was sent to the ED by PMD, Dr. Nick, for further evaluation. Patient denies fever, chills. <Veronica Sparrow - Last Filed: 08/04/18 18:48> History Per: Patient History/Exam Limitations: no limitations Onset/Duration Of Symptoms: Days (one week ) Current Symptoms Are (Timing): Still Present Location Of Pain/Discomfort: Other (left-sided abdominal pain ) Quality Of Discomfort: "Pain" Associated Symptoms: denies: Fever, Chills <Veronica Sparrow - Last Filed: 08/04/18 18:48> <Catherine Reynolds - Last Filed: 08/04/18 19:43> Time Seen by Provider: 08/04/18 15:48 Chief Complaint (Nursing): Abdominal Pain Past Medical History Reviewed: Historical Data, Nursing Documentation, Vital Signs Vital Signs: Last Vital Signs Temp 98.0 F 08/04/18 15:52 Pulse 63 08/04/18 15:52 Resp BP 135/62 08/04/18 15:52 Pulse Ox 95 08/04/18 15:52 - Medical History PMH: Arthritis, Asthma, COPD, Diabetes, Gastritis, HTN, Hypercholesterolemia, Malignancy, Peripheral Edema, Rheumatoid Arthritis Denies: Crohn's Disease, Diverticulitis, Gall Bladder Disease, HIV, Pancreatitis, Chronic Kidney Disease Surgical History: No Surg Hx - [facility] Procedures ASSISTANCE WITH RESPIRATORY VENTILATION, <24 HRS, CPAP (08/08/17) CONTRAST AORTOGRAM (11/23/14) CONTRAST ARTERIOGRAM-LEG (11/23/14) DRAINAGE OF VULVA, OPEN APPROACH (03/14/16) EXCISION OF TRANSVERSE COLON, ENDO (12/15/17) FLUOROSCOPY OF SUPERIOR VENA CAVA, GUIDANCE (08/08/17) INSERTION OF INFUSION DEV INTO SUP VENA CAVA, PERC APPROACH (08/08/17) INTRODUCE OTH ANTI-INFECT IN CENTRAL VEIN, PERC (08/08/17) INTRODUCTION OF SERUM/TOX/VACCINE INTO MUSCLE, PERC APPROACH (08/08/17) ULTRASONOGRAPHY OF RIGHT UPPER EXTREMITY VEINS, GUIDANCE (08/08/17) Family History: States: Unknown Family Hx - Social History Hx Tobacco Use: No Hx Alcohol Use: No Hx Substance Use: No - Immunization History Hx Tetanus Toxoid Vaccination: No (unk) Hx Influenza Vaccination: Yes (10/2015) Hx Pneumococcal Vaccination: Yes (10/2015) <Veronica Sparrow - Last Filed: 08/04/18 18:48> Vital Signs: Last Vital Signs Temp 98.0 F 08/04/18 15:52 Pulse 67 08/04/18 19:21 Resp 16 08/04/18 19:21 BP 168/89 H 08/04/18 19:21 Pulse Ox 99 08/04/18 19:21 - [facility] Procedures ASSISTANCE WITH RESPIRATORY VENTILATION, <24 HRS, CPAP (08/08/17) CONTRAST AORTOGRAM (11/23/14) CONTRAST ARTERIOGRAM-LEG (11/23/14) DRAINAGE OF VULVA, OPEN APPROACH (03/14/16) EXCISION OF TRANSVERSE COLON, ENDO (12/15/17) FLUOROSCOPY OF SUPERIOR VENA CAVA, GUIDANCE (08/08/17) INSERTION OF INFUSION DEV INTO SUP VENA CAVA, PERC APPROACH (08/08/17) INTRODUCE OTH ANTI-INFECT IN CENTRAL VEIN, PERC (08/08/17) INTRODUCTION OF SERUM/TOX/VACCINE INTO MUSCLE, PERC APPROACH (08/08/17) ULTRASONOGRAPHY OF RIGHT UPPER EXTREMITY VEINS, GUIDANCE (08/08/17) <Catherine Reynolds - Last Filed: 08/04/18 19:43> Review Of Systems Constitutional: Negative for: Fever, Chills Gastrointestinal: Positive for: Abdominal Pain (left-sided ) <Veronica Sparrow - Last Filed: 08/04/18 18:48> Physical Exam - Physical Exam Appears: Non-toxic, No Acute Distress Skin: Normal Color, Warm, Dry Head: Atraumatic, Normacephalic Eye(s): bilateral: Normal Inspection Oral Mucosa: Moist Neck: Supple Chest: Symmetrical, No Deformity, No Tenderness Cardiovascular: Rhythm Regular, No Murmur Respiratory: Normal Breath Sounds, No Rales, No Rhonchi, No Wheezing Gastrointestinal/Abdominal: Soft, Tenderness (left lower quadrant ), No Guarding, No Rebound Extremity: Normal ROM, Capillary Refill (less than 2 seconds ) Neurological/Psych: Oriented x3, Normal Speech, Normal Cognition <Veronica Sparrow - Last Filed: 08/04/18 18:48> ED Course And Treatment - Laboratory Results Result Diagrams: 08/04/18 16:57 08/04/18 17:47 Lab Interpretation: No Acute Changes O2 Sat by Pulse Oximetry: 95 (on RA ) Pulse Ox Interpretation: Normal Progress Note: Bloodwork, urinalysis, EKG, CT A/P ordered and reviewed. IV Fluids given. Reassessment Condition: Improved <Veronica Sparrow - Last Filed: 08/04/18 18:48> - Laboratory Results Result Diagrams: 08/04/18 16:57 08/04/18 17:47 - CT Scan/US CT abd/pelvis Other Rad Studies (CT/US): Read By Radiologist, Radiology Report Reviewed CT/US Interpretation: EXAM: CT Abdomen with IV contrast. CLINICAL HISTORY: BADOMEN PAIN. TECHNIQUE: Axial computed tomography images of the abdomen and pelvis with intravenous contrast. 0.00 mGy-cm. CONTRAST: With; VIS AND OMNI 240 ORAL. COMPARISON: None provided. FINDINGS: LUNG BASES: The lung bases appear clear. No pleural effusions are seen. LIVER: Unremarkable. GALLBLADDER AND BILE DUCTS: Minimal gallstones suspected. No radioopaque gallstones are seen. No biliary ductal dilatation is evident. PANCREAS: Unremarkable. SPLEEN: Unremarkable. ADRENAL GLANDS: There is a rounded heterogeneous mass measuring approximately 2.8 x 2.3 cm right adrenal gland. KIDNEYS, URETERS, AND BLADDER: There are approximate 6 mm rounded calculus lower portion left kidney. There is no hydronephrosis or hydroureter. No urinary calculi are seen. STOMACH AND BOWEL: Unremarkable appearance of the stomach and bowel. No evidence of bowel obstruction. No evidence suggesting enteritis or colitis. Mild diverticular changes sigmoid colon. APPENDIX: No evidence of acute appendicitis on CT examination. PERITONEUM: No free fluid. No free air. Thinning of the anterior abdominal musculature. LYMPH NODES: No lymphadenopathy is evident. VASCULATURE: No evidence of abdominal aortic aneurysm. BONES: No aggressive appearing osseous lesion. No acute osseous pathology evident. Hypertrophic degenerative changes lumbar spine. IMPRESSION: No acute intra-abdominal abnormality. Minimal gallstones. Approximate 2.8 x 2.3 cm rounded right adrenal gland mass. Small nonobstructing calculus left kidney. Mild diverticular changes sigmoid colon. . Electronically signed on Aug 04, 2018 7:24:50 PM COT by: New Interiano M.D., Certified by [facility], Diagnostic Radiology Reevaluation Time: 19:39 Reassessment Condition: Improved (Patient remains comfortablein ED. Abdomen is soft without guarding or rebound.) <Catherine Reynolds - Last Filed: 08/04/18 19:43> Disposition - Disposition Disposition Time: 19:00 - POA Present On Arrival: None <Veronica Sparrow - Last Filed: 08/04/18 18:48> Counseled Patient/Family Regarding: Studies Performed, Diagnosis, Need For Followup - Disposition Disposition Time: 19:41 <Catherine Reynolds - Last Filed: 08/04/18 19:43> - Disposition Disposition: HOME/ ROUTINE Condition: STABLE Additional Instructions: Keep your diet bland. Stay hydrated. Instructions: Acute Abdomen (Belly Pain), Adult (DC) Forms: [employer] (Lebanese) - Clinical Impression Clinical Impression: LUQ abdominal pain - PA / INSURANCE CLAIMS SUPERVISOR / Resident Statement MD/DO has reviewed & agrees with the documentation as recorded. - Scribe Statement The provider has reviewed the documentation as recorded by the Scribe (Jagruti Robb) All medical record entries made by the Scribe were at my direction and personally dictated by me. I have reviewed the chart and agree that the record accurately reflects my personal performance of the history, physical exam, medical decision making, and the department course for this patient. I have also personally directed, reviewed, and agree with the discharge instructions and disposition. <Veronica Sparrow - Last Filed: 08/04/18 18:48> Physician Patient Turnover Patient Signed Over To: Catherine Reynolds Handoff Comments: pending CT <Veronica Sparrow Last Filed: 08/04/18 18:48>
[2018-08-04 17:02] LABS: BASO # 0.1 K/uL (0.0-0.2); BASO % 0.9 % (0.0-2.0); EOS # 0.2 K/uL (0.0-0.7); HEMOGLOBIN 11.1 g/dL (11.0-16.0); MEAN CORPUSCULAR HEMOGLOBIN 27.8 pg (27.0-31.0); MEAN PLATELET VOLUME 8.7 fL (7.2-11.7); MONO # 0.5 K/uL (0.0-0.8); MONO % 6.6 % (0.0-10.0); NEUT % 51.5 % (50.0-75.0); RBC 3.98 Mil/uL (3.80-5.20); RED CELL DISTRIBUTION WIDTH 16.4 % (11.5-14.5); WHITE BLOOD COUNT 7.8 K/uL (4.8-10.8)
[2018-08-04 17:21] LABS: MEAN CELL VOLUME 84.3 fL (81.0-99.0)
[2018-08-04 18:06] LABS: BLOOD UREA NITROGEN 22 mg/dL (7-17); GFR NON-AFRICAN AMERICAN 54
[2018-08-04 18:07] LABS: ALB/GLOB RATIO 1.1 (1.0-2.1); ALBUMIN 3.6 g/dL (3.5-5.0); ALT/SGPT 22 U/L (9-52); AST/SGOT 18 U/L (14-36); CALCIUM 8.4 mg/dl (8.6-10.4); LIPASE 125 U/L (23-300)
[2018-08-04 18:40] LABS: SQUAMOUS EPITHIAL 10 /hpf (0-5); URINE BACTERIA RARE (<OCC); URINE BILIRUBIN NEGATIVE (NEGATIVE); URINE BLOOD NEGATIVE (NEGATIVE); URINE CLARITY Clear (Clear); URINE COLOR Yellow (YELLOW); URINE GLUCOSE (UA) NORMAL (Normal); URINE LEUKOCYTE ESTERASE NEG Leu/uL (Negative); URINE PROTEIN NEGATIVE (NEGATIVE); URINE UROBILINOGEN NORMAL mg/dL (0.2-1.0)
[2018-08-04] MEDS ORDERED: Iodixanol 320 MG/ML 100 ML BOTTLE IV ONE (18:40)
[2018-08-04 19:23] VITALS: BP 168/89; PULSE 67; RESP 16; O2SAT 99
--- NOTE | 2018-08-05 10:53 | CARD ---
APPROVED REPORT Date of service: 08/04/2018 EKG Measurement Heart [id number] <Conclusion> Sinus rhythm with 1st degree AV block Otherwise normal ECG
--- NOTE | 2018-08-05 14:39 | CT ---
PROCEDURE: CT Abdomen and Pelvis with oral and IV contrast. HISTORY: pain COMPARISON: CT abdomen and pelvis with IV and oral contrast performed 03/30/18 and 12/15/17 TECHNIQUE: Contiguous axial images of the abdomen and pelvis. Oral and IV contrast was administered. Coronal and Sagittal reformats generated and reviewed. Contrast dose: 100 mL Visipaque 320 IV Radiation dose: Total exam DLP = 1147.93 mGy-cm. This CT exam was performed using one or more of the following dose reduction techniques: Automated exposure control, adjustment of the mA and/or kV according to patient size, and/or use of iterative reconstruction technique. FINDINGS: LOWER THORAX: No visible consolidation, pleural effusion, or pneumothorax. Partially imaged cardiomegaly. Trace pericardial effusion. Dense mitral annulus calcification including large rounded calcification at the mitral valve. LIVER: Unremarkable unenhanced appearance. GALLBLADDER AND BILE DUCTS: Small dependent gallstones. PANCREAS: Unremarkable unenhanced appearance. SPLEEN: Unremarkable unenhanced appearance. ADRENALS: 2.5 x 2.8 cm heterogeneous right adrenal gland mass containing punctate calcification. The left adrenal gland appears grossly unremarkable. KIDNEYS AND URETERS: The kidneys enhance symmetrically. No hydronephrosis or obstructing renal calculus. 7 mm nonobstructing left lower pole calculus. BLADDER: The urinary bladder appears unremarkable. REPRODUCTIVE: Uterus is present. APPENDIX: The appendix appears within normal limits of caliber. No secondary signs of acute appendicitis. BOWEL: The stomach is nondistended. The bowel loops appear within normal limits of caliber without evidence of intestinal obstruction. Scattered diverticulosis without CT evidence of acute diverticulitis. PERITONEUM: No significant free fluid. No definite free air. LYMPH NODES: No bulky lymphadenopathy identified. VASCULATURE: No aortic aneurysm. Atherosclerotic calcifications/mural plaque involving the aorta. BONES: Degenerative changes of the spine. OTHER FINDINGS: Small fat containing ventral hernia. IMPRESSION: Partially imaged cardiomegaly. Trace pericardial effusion. Dense mitral annulus calcification including large rounded calcification at the mitral valve. Small dependent gallstones. 2.5 x 2.8 cm complex right adrenal gland mass. Nonobstructing 7 mm left lower pole renal calculus. No hydronephrosis. Additional incidental findings as above. Preliminary impression was provided by [facility] [employer].
== END 2018-08-04 20:17 | disposition home or self-care (01) ==
LOC: C.ER 15:40
DX: R10.12 Left upper quadrant pain (principal); I10 Essential (primary) hypertension; E11.9 Type 2 diabetes mellitus without complications; E78.00 Pure hypercholesterolemia, unspecified
CPT/HCPCS: 74177; 80053; 81001; 83605; 83690; 85025; 93005; 96361; 96374; 99284; C9113; J7030; Q9966; Q9967

== ENCOUNTER 2018-11-02 12:51 | Emergency (ER) | payer MEDICARE, MEDICAID | END 2018-11-02 16:08 | disposition home or self-care (01) | LOC: C.ER 12:51 ==

== ENCOUNTER 2018-11-04 08:35 | Day surgery (SDC) | payer MEDICARE, MEDICAID | END 2018-11-04 12:56 | disposition home or self-care (01) | LOC: C.SDS 08:35 | DX: L72.3 Sebaceous cyst (principal) ==